=== PATIENT | female | born 1965 | race Caucasian/White ===

== ENCOUNTER 2018-04-30 06:12 | Day surgery (SDC) | payer OTHER ==
--- NOTE | 2018-04-20 12:24 | HP ---
HISTORY AND PHYSICAL: DATE OF SURGERY: 04/30/18. DATE OF OFFICE VISIT: 04/01/18. SURGEON: Yennifer Ochoa MD.* (DICTATED BY LANE THURMAN) PROCEDURE: Left knee arthroplasty with partial lateral meniscectomy, possible chondroplasty, possible synovectomy. CHIEF COMPLAINT: Left knee pain. HISTORY OF PRESENT ILLNESS: Ms. Haddad is a 52-year-old female with continued to complaints of left knee pain and MRI confirms the lateral meniscus tear. She has elected to proceed with surgery. This surgery is scheduled for with Dr. Ochoa. PAST MEDICAL HISTORY: Asthma, depression, anxiety, panic disorder, IBS, PTSD, and mitral valve prolapse. PAST SURGICAL HISTORY: Left oophorectomy, breast augmentation, and laminectomy. CURRENT MEDICATIONS: 1. Calcium. 2. Multivitamin. 3. Tizanidine as needed. 4. Benadryl as needed. 5. Xanax. 6. Oxycodone 30 mg up to 5 tabs daily. 7. Wellbutrin. 8. Prozac. 9. Dalmane. 10. Lomotil. ALLERGIES: FENTANYL and MORPHINE. FAMILY HISTORY: Denies. SOCIAL HISTORY: She is a 52-year-old female. She lives alone. She smokes approximately 2 cigarettes a day. She uses alcohol rarely. She denies use of illicit drugs. REVIEW OF SYSTEMS: A complete 14-point review of systems was reviewed with the patient and was positive for asthma. She denies a history of DVT, PE, hepatitis or HIV. PHYSICAL EXAMINATION GENERAL: She is well-developed, well-nourished, in no acute distress. VITAL SIGNS: She stands 5 feet 6 inches tall, weighs 170 pounds. Her blood pressure is 140/90, heart rate is 80. HEENT: Normocephalic, atraumatic. NECK: Supple. No palpable lymph nodes. PULMONARY: Lungs are clear to auscultation bilaterally. CARDIO: Regular rate and rhythm. Strong S1 and S2. ABDOMEN: Soft, nontender, nondistended. NEUROLOGIC: She is alert and oriented x3. Cranial nerves II through XII are intact. MUSCULOSKELETAL: Left lower extremity, the skin is intact. There are no open wounds or abrasions. There are moderate joint effusions. She has some tenderness over the lateral joint line. Positive Ragini's, 2+ dorsalis pedis pulses. Intact sensation in her lower extremity. Muscle strengths were intact at 5/5. ASSESSMENT: Ms. Haddad is a 52-year-old female with continued complaints of left knee pain. She has failed conservative management and has elected to proceed with left knee arthroscopy with partial lateral meniscectomy, possible chondroplasty, possible synovectomy. The surgery is scheduled for 04/30/[address] Ochoa discussed the risks and benefits of the surgery with her today and all of her questions were answered. She will follow up Dr. Ochoa in 10 to 14 days after the surgery. L[address] THURMAN [id number]/[facility] #: [id number] MTDD
[~2018-04-30 06:12] MED LIST: Buffered Lidocaine 0.9% SYRIN* 5 ML/SYR SYRINGE INTRADERM ONE
[2018-04-30] MEDS ORDERED: ceFAZolin 2 GM PREMIX (*) 2 GM/50 ML BAG IVPB ONE (06:22)
[2018-04-30] MEDS ORDERED: methylPREDNISolone ACETATE 80* 80 MG/ML 1 ML VIAL ONE (06:45)
[2018-04-30] MEDS ORDERED: Bupivacaine 0.5% SDV PF* 30ML VIAL ONE (06:45)
[2018-04-30] MEDS ORDERED: EPINEPHRINE 1 MG/ML 1 ML VIAL ONE (06:45)
[2018-04-30] MEDS ORDERED: Midazolam* 1 MG/ML 2 ML VIAL (2 MG) ONE (07:23)
[2018-04-30] MEDS ORDERED: fentaNYL* 50 MCG/ML 2 ML VIAL (100 MCG VIAL) ONE (07:23)
[2018-04-30] MEDS ORDERED: Lidocaine 2% PF * 5 ML VIAL ONE (07:35)
[2018-04-30] MEDS ORDERED: Propofol* 10 MG/ML 20 ML BTL IV PUSH ONE (07:35)
[2018-04-30] MEDS ORDERED: Dexamethasone IV* 4 MG/ML 1 ML (4 MG) ONE (07:35)
[2018-04-30] MEDS ORDERED: Ketorolac INJ* 30 MG/ML 1 ML VIAL ONE (07:35)
[2018-04-30] MEDS ORDERED: Sevoflurane* 1 BTL ONE (07:36)
[2018-04-30] MEDS ORDERED: Naloxone* 0.4 MG/ML 1 ML VIAL IV PRN (07:55)
[2018-04-30] MEDS ORDERED: DiMENhydriNATE IV* 50 MG/ML VIAL IV PUSH PRN (07:55)
[2018-04-30] MEDS ORDERED: Acetaminophen TAB* 325 MG PO PRN (07:55)
[2018-04-30] MEDS ORDERED: diPHENhydraMINE IV* 50 MG/ML 1 ml VIAL (BENADRYL) IV PRN (07:55)
[2018-04-30] MEDS ORDERED: PROCHLORPERAZINE INJ 5 MG/ML 2 ML VIAL IV PRN (07:55)
[2018-04-30] MEDS ORDERED: oxyCODONE TAB* 5 MG TAB PO PRN (07:55)
[2018-04-30] MEDS ORDERED: Ondansetron SYRINGE* 4 MG/2 ML SYRINGE (from 40mg/20ml vial) IV ONE (08:00)
[2018-04-30] MEDS ORDERED: oxyCODONE TAB* 5 MG TAB ONE (09:01)
[2018-04-30] MEDS ORDERED: Acetaminophen TAB* 325 MG ONE (09:02)
[2018-04-30] MEDS ORDERED: diPHENhydraMINE IV* 50 MG/ML 1 ml VIAL (BENADRYL) ONE (09:21)
[2018-04-30 10:58] VITALS: BP 130/71
--- NOTE | 2018-05-01 09:20 | OP ---
OPERATIVE NOTE: DATE OF OPERATION: 04/30/18 DATE OF : 63 ATTENDING SURGEON: Yennifer Ochoa MD IRISH MOSS GATHERER: LANE Payne Mr. Clancy did help throughout the procedure with preparation of the leg, wound retraction, manipulat ion of the knee and wound closure. ANESTHESIOLOGIST: Dr. Palacios. ANESTHESIA: General. PRE-OP DIAGNOSES: Left knee lateral meniscal tear, mild osteoarthritis. POST-OP DIAGNOSES: Left knee medial and lateral meniscal tear, medial plica, mild- to-moderate osteo arthritis. OPERATIVE PROCEDURE: Left knee arthroscopy with partial medial meniscectomy, partial lateral menisce ctomy and medial plica excision. INDICATION: Ms. Haddad is a 52-year-old female with several months of left knee pain. She had mecha nical symptoms and failed conservative treatment. MRI confirmed a significant lateral meniscal tear as well as mild arthritic changes. The patient elected to have left knee arthroscopy with partial men iscectomy, possible chondroplasty, possible synovectomy. Informed consent was obtained from the meghann ent. She understood the risks of the surgery included, but were not limited to, bleeding, infection, damage to nearby structures, continued pain, progression of arthritis, re-tear of the meniscus, stro ke, heart attack, blood clot, and . She wished to proceed. INTRAOPERATIVE FINDINGS: Intraoperatively, the patient was noted to have grade 2 and 3 Outerbridge c artilage changes in the medial and patellofemoral compartment. She had a radial tear of the medial me niscus. She had a linear tear of the posterior 50% of the lateral meniscus involving the white-red z one and red-red zone. This did displace anteriorly. The patient had a large medial plica that impinged along the patellofemoral compartment with range of motion. ESTIMATED BLOOD LOSS: Less than 25 mL. COMPLICATIONS: None. SPECIMEN: None. DESCRIPTION OF PROCEDURE: Ms. Haddad was identified in the preanesthesia unit. Her left lower extrem ity was marked as a correct operative side. Informed consent was signed and placed in the chart. Th e patient was taken to the operating room and placed under anesthesia. Preop time-out was made to co rrectly identify the patient's side and site. Appropriate perioperative antibiotics were given withi n 1 hour of incision. Left lower extremity was prepped and draped in usual sterile fashion. A stand margie 0.5 cm lateral portal incision was made with a 15-blade and carried down through the capsule. Th e trocar was introduced. As soon as the light and water sources were turned on, there was immediate visualization of the suprapatellar pouch. A tour of the knee joints was performed. Suprapatellar po uch had no obvious abnormality. Patellofemoral compartment had some grade 2 and 3 Outerbridge cartil age changes. There was a large medial plica noted. Medial gutter had no loose body noted. Medial c ompartment had some grade 2 and 3 Outerbridge cartilage changes. There was a radial tear with some d isplacement into the joint along the midportion of the meniscus. ACL and PCL appeared to be intact. The knee was placed in a jqmphy-xk-clhc position. There was a visible lateral meniscal tear with gracy e anterior displacement. Lateral gutters showed no loose body or plica. Under direct visualization, a medial portal incision was made. A probe was introduced and a second t our of the knee joint was performed. A small amount of the anterior synovium was cleared to improve visualization. Next, a shaver and radiofrequency ablation wand were used to excise the medial plica until there was no further impingement with range of motion. There were no significant cartilage fla ps noted. Shaver and straight biter were first used to perform partial medial meniscectomy of the ra dial tear. A smooth border was obtained in the white-red zone. Next, the knee was placed in the fig ure-of-four position. Probing of the lateral meniscal tear showed that it was a linear tear that kasandra roached bucket- handle type tear. This displaced anteriorly into the joint. A straight biter and sh aver were used to perform partial lateral meniscectomy in the red-white and red- red zone. A smooth border of the meniscus was obtained. Further probing of the lateral meniscus showed no additional te ars. The knee was copiously irrigated with sterile saline. All instruments were removed. The incis ions were closed using interrupted 3-0 nylon sutures. Intraarticular injection of 80 mg of Depo-Medr ol and 6 mL of 0.25% Marcaine was placed in the knee joint. Sterile Xeroform, 4x4s and Webril were u sed to cover the incision. Oscar wrap and cold pack were placed over this. The patient's anesthesia w as reversed without difficulty. She was taken to the PACU in stable condition. Intended weightbeari ng will be weightbearing as tolerated. She will follow up in 2 weeks' time for suture removal. [id number]/[facility] #: [id number]
== END 2018-04-30 11:40 | disposition home or self-care (01) ==
LOC: OR 06:12
PROVIDERS: ATTEND Orthopaedic Surgery Adult Reconstructive Orthopaedic Surgery
DX: M23.204 Derangement of unspecified medial meniscus due to old tear or injury, left knee (principal); M23.201 Derangement of unspecified lateral meniscus due to old tear or injury, left knee; M67.52 Plica syndrome, left knee; M17.12 Unilateral primary osteoarthritis, left knee; J45.909 Unspecified asthma, uncomplicated; F41.8 Other specified anxiety disorders; F43.10 Post-traumatic stress disorder, unspecified; I34.1 Nonrheumatic mitral (valve) prolapse; K58.9 Irritable bowel syndrome, unspecified; F41.0 Panic disorder [episodic paroxysmal anxiety]; Z72.0 Tobacco use; K21.9 Gastro-esophageal reflux disease without esophagitis
CPT/HCPCS: A9270-GY; J0690; J1040; J1100; J1200; J1885; J2250; J2405; J2704; J3010

== ENCOUNTER 2019-03-16 06:45 | Day surgery (SDC) | payer OTHER ==
--- NOTE | 2019-02-01 16:38 | HP ---
HISTORY AND PHYSICAL: DATE OF SURGERY: 02/11/19 DATE OF OFFICE VISIT: 02/01/19 SURGEON: Yennifer Ochoa MD.* (DICTATED BY LANE THURMAN) PROCEDURE: Right knee arthroscopy with partial meniscectomy, possible chondroplasty, possible synovectomy, and possible plica excision. CHIEF COMPLAINT: Right knee pain. HISTORY OF PRESENT ILLNESS: Ms. Haddad is a 53-year-old female with continued complaints of right knee pain. She has elected to proceed with the right knee arthroscopy. PAST MEDICAL HISTORY: Asthma, anxiety, depression, PTSD, agarophobia, IBS, and mitral valve prolapse. PAST SURGICAL HISTORY: Left oophorectomy, breast implants, back surgery, and left knee arthroscopy x2. CURRENT MEDICATIONS: 1. Benadryl Allergy as needed daily. 2. Daily multivitamin calcium every day. 3. Oxycodone 30 mg 4 to 5 times a day. 4. Flurazepam 30 mg at bedtime. 5. Senokot and omeprazole as needed. 6. Diphenoxylate/atropine 2.5/0.025 mg 2 tabs up to 4 times a day. 7. Alprazolam 2 mg 1/2 tab 3 times a day. 8. Bupropion 150 mg 2 tabs once a day. ALLERGIES: FENTANYL and MORPHINE. FAMILY HISTORY: Denies. SOCIAL HISTORY: She is a 53-year-old female. She lives alone. She does not smoke or use drugs. REVIEW OF SYSTEMS: A complete 14-point review of systems was reviewed with the patient. She denies history of DVT, PE, hepatitis, HIV, or anesthesia problems. She has some occasional shortness of breath. PHYSICAL EXAMINATION GENERAL: She is well developed, well nourished, in no acute distress. VITAL SIGNS: She stands 66 inches tall, weighs 185 pounds. Her blood pressure is 116/76, her heart rate is 100. HEENT: Normocephalic, atraumatic. NECK: Supple. No palpable lymph nodes. PULMONARY: The lungs are clear to auscultation bilaterally. CARDIO: Regular rate and rhythm. Strong S1, S2. ABDOMEN: Soft, nontender, nondistended. NEUROLOGICAL: She is alert and oriented x3. MUSCULOSKELETAL: Right lower extremity: The skin is intact. There are no open wounds or abrasions. Positive Ragini's, positive Apley's, some moderate effusion. Range of motion is 5 to 120 degrees of flexion. She is able to dorsiflex and plantarflex and has a 2+ dorsalis pedis pulse. ASSESSMENT AND PLAN: Ms. Haddad is a 53-year-old female with continued complaints of right knee pain. She has elected to proceed with right knee arthroscopy with partial meniscectomy, possible chondroplasty, possible synovectomy, possible plica excision. Surgery scheduled for 02/11/[address] Ochoa discussed the risks and benefits of the surgery at today's visit and all of her questions were answered. She will follow up with Dr. Ochoa 2 weeks after the surgery. L[address] THURMAN [id number]/[facility] #: [id number] MTDD
--- NOTE | 2019-03-12 18:15 | HP ---
HISTORY AND PHYSICAL: DATE OF ADMISSION/SURGERY: 03/16/19 DATE OF OFFICE VISIT: 03/12/19 SURGEON: Yennifer Ochoa MD* (dictated by LANE Thurman). PROCEDURE: Right knee arthroscopy with partial meniscectomy, possible chondroplasty, possible synovectomy, possible plica excision. CHIEF COMPLAINT: Right knee pain. HISTORY OF PRESENT ILLNESS: Ms. Haddad is a 53-year-old female with complaints of right knee pain. An MRI confirms a meniscus tear and she has elected to proceed with surgery. PAST MEDICAL HISTORY: Asthma, anxiety, depression, PTSD, agoraphobia, and rectal valve prolapse. PAST SURGICAL HISTORY: Left oophorectomy, breast implants, low back surgery, left knee scope x2, cyst removal from her right ovary; surgery on her finger. CURRENT MEDICATIONS: 1. Fluoxetine 20 mg a day. 2. Tizanidine as needed. 3. Benadryl Allergy 25 mg as needed. 4. Multivitamin. 5. Calcium. 6. Oxycodone 30 mg 4 to 5 times a day. 7. Flurazepam 30 mg q.h.s. 8. Diphenoxylate/atropine 2.5/0.025 mg 2 tabs 4 times a day as needed. 9. Alprazolam 2 mg 4 times a day as needed. 10. Bupropion 300 mg a day. 11. . ALLERGIES: To FENTANYL and MORPHINE. FAMILY HISTORY: Denies. SOCIAL HISTORY: She is a 53-year-old female. She lives alone. She does not smoke or use drugs. Uses alcohol rarely. REVIEW OF SYSTEMS: A complete 14-point review of systems was reviewed with the patient. It was all negative or noncontributory. She denies history of DVT, PE , hepatitis, HIV or anesthesia problems. PHYSICAL EXAMINATION GENERAL: She is well developed, well nourished, in no acute distress. VITAL SIGNS: She stands 66 inches tall, weighs 189 pounds. Her blood pressure is 138/80, her heart rate is 84. HEENT: Normocephalic, atraumatic. NECK: Supple. No palpable lymph nodes. PULMONARY: The lungs are clear to auscultation bilaterally. CARDIO: Regular rate and rhythm. Strong S1, S2. ABDOMEN: Soft, nontender, nondistended. NEUROLOGICAL: She is alert and oriented x3. MUSCULOSKELETAL: Right lower extremity: The skin is intact. There are no open wounds or abrasions. There is obvious effusion of the right knee, some tenderness over the medial and lateral joint line. She has positive Ragini's , positive Apley's, negative for Shira's. 2+ dorsalis pedis pulse. She is able to dorsiflex and plantar flex. ASSESSMENT AND PLAN: Ms. Haddad is a 53-year-old female with right knee pain secondary to a meniscus tear. She has elected to proceed with right knee arthroscopy with partial meniscectomy, possible chondroplasty, possible synovectomy, and possible plica excision. The surgery is scheduled for with Dr. Ochoa. Dr. Ochoa discussed the risks and benefits of the surgery at today's visit and all of her questions were answered. She will follow up with Dr. Ochoa 2 weeks after the surgery. L[address] THURMAN [id number]/[facility] #: [id number] MTDD
[~2019-03-16 06:45] MED LIST changes: +ALPRAZolam TAB* 0.25 MG PO PRN; -Buffered Lidocaine 0.9% SYRIN* 5 ML/SYR SYRINGE INTRADERM ONE; +Buffered Lidocaine 1% SYRIN* 1 ML/SYRINGE INTRADERM ONE; +Famotidine IV* 10 MG/ML 2 ML (20 mg) IV ONE; +Lactated Ringers 1000 ML Bag* 1,000 ML IV SCH
[2019-03-16] MEDS ORDERED: ceFAZolin 2 GM PREMIX in ORs 2 GM/50 ML BAG IVPB ONE (07:05)
[2019-03-16] MEDS ORDERED: Buffered Lidocaine 1% SYRIN* 1 ML/SYRINGE INTRADERM ONE (07:06)
[2019-03-16] MEDS ORDERED: Famotidine IV* 10 MG/ML 2 ML (20 mg) ONE (07:06)
[2019-03-16] MEDS ORDERED: fentaNYL* 50 MCG/ML 2 ML VIAL (100 MCG VIAL) ONE (07:51)
[2019-03-16] MEDS ORDERED: Midazolam* 1 MG/ML 5 ML VIAL (5 MG) ONE (07:52)
[2019-03-16] MEDS ORDERED: methylPREDNISolone ACETATE 80* 80 MG/ML 1 ML VIAL ONE (08:32)
[2019-03-16] MEDS ORDERED: EPINEPHRINE 1 MG/ML 1 ML VIAL ONE (08:32)
[2019-03-16] MEDS ORDERED: ROPIVACAINE 5 MG/ML 30 ML BTL (0.5%) ONE (08:32)
[2019-03-16] MEDS ORDERED: Lidocaine 2% PF * 5 ML VIAL ONE (09:14)
[2019-03-16] MEDS ORDERED: Propofol* 10 MG/ML 20 ML BTL ONE (09:14)
[2019-03-16] MEDS ORDERED: Ketorolac INJ* 30 MG/ML 1 ML VIAL ONE (09:14)
[2019-03-16] MEDS ORDERED: Dexamethasone IV* 4 MG/ML 1 ML (4 MG) ONE (09:14)
[2019-03-16] MEDS ORDERED: Ondansetron INJ* 2 MG/ML VIAL ONE (09:14)
[2019-03-16] MEDS ORDERED: diPHENhydraMINE IV* 50 MG/ML 1 ml VIAL (BENADRYL) ONE (09:14)
[2019-03-16] MEDS ORDERED: HYDROmorphone INJ1* 1 MG/ML SYRINGE ONE (09:22)
[2019-03-16] MEDS ORDERED: Acetaminophen TAB* 325 MG PO PRN (09:36)
[2019-03-16] MEDS ORDERED: DiMENhydriNATE IV* 50 MG/ML VIAL IV PUSH PRN (09:36)
[2019-03-16] MEDS ORDERED: Naloxone* 0.4 MG/ML 1 ML VIAL IV PRN (09:36)
[2019-03-16] MEDS ORDERED: oxyCODONE TAB* 5 MG TAB ONE ×2 (10:12→10:25)
[2019-03-16] MEDS: oxyCODONE TAB* 5 MG TAB PO PRN ×2 (10:13→10:26)
[2019-03-16] MEDS ORDERED: Acetaminophen TAB* 325 MG ONE (10:50)
[2019-03-16 11:23] VITALS: BP 138/91
--- NOTE | 2019-03-16 11:26 | OP ---
OPERATIVE REPORT: DATE OF OPERATION: 03/16/19 DATE OF : 63 ATTENDING SURGEON: Yennifer Ochoa MD. MEDIA JOB TITLES: LANE Payne Mr. Clancy did help throughout the procedure with preparation of the leg, wound retraction, manipulat ion of the knee, and wound closure. ANESTHESIOLOGIST: Dr. Fermin. ANESTHESIA: General. PRE-OP DIAGNOSES: 1. Right knee medial and lateral meniscal tears. 2. Moderate osteoarthritis. POST-OP DIAGNOSES: 1. Right knee medial and lateral meniscal tears. 2. Moderate osteoarthritis. OPERATIVE PROCEDURE: 1. Right knee arthroscopy with partial medial meniscectomy. 2. Partial lateral meniscectomy. 3. Patellofemoral chondroplasty. COMPLICATIONS: None. ESTIMATED BLOOD LOSS: Less than 25 cc. SPECIMEN: None. BRIEF HISTORY/INDICATION: Ms. Haddad is a 53-year-old female who had a known medial meniscal tear an d likely lateral meniscal tear on MRI. She failed conservative treatment and elected to undergo knee arthroscopy with partial meniscectomies, possible chondroplasty, possible synovectomy, possible plic a excision. Informed consent was obtained from the patient. She understood the risks of surgery inc luded, but were not limited to, bleeding, infection, damage to nearby structures, continued pain, nee d for further surgery, retear of the meniscus, stroke, heart attack, blood clot, , and anesthesi a complications. She wished to proceed. INTRAOPERATIVE FINDINGS: Intraoperatively, the patient was noted to have a radial displaced tear of the anteromedial meniscus as well as a radial tear in the midportion and posterior portion of the lat eral meniscus. These were in the white- red zone. She had grade 3 and 4 Outerbridge cartilage lopez es of the patellofemoral compartment with cartilage fraying and flapping. She had some exposed subch ondral bone along the medial patellar facet. She had grade 1 and 2 Outerbridge cartilage changes in the medial and lateral compartments. DESCRIPTION OF PROCEDURE: Ms. Haddad was identified in the preanesthesia unit. Her right lower extre mity was marked as the correct operative site. Informed consent was signed and placed in the chart. The patient was taken to the operating room and placed under anesthesia without complication. Right lower extremity was prepped and draped in the usual sterile fashion. Preop time-out was made to cor rectly identify the patient, side, and site. Appropriate perioperative antibiotics were given within 1 hour of incision. A 0.5 cm anterolateral portal incision was made with a #10 blade and carried down through the capsule . The trocar was introduced. As soon as the water and light sources were turned on, there was immed iate visualization of the suprapatellar pouch. A tour of the knee joint was performed. Suprapatella r pouch had no obvious abnormalities. Patellofemoral compartment had grade 3 and 4 Outerbridge carti mimi changes with exposed subchondral bone along the medial patellar facet. There was cartilage fray ing and flapping. Medial gutter showed no loose body or significant plica. Medial compartment showe d some rxmu-fm-ajtzjnwe arthritic changes. Radial tear was visualized with displacement of the menis josephine tear into the joint line. This was along the anteromedial meniscus. ACL and PCL appeared to be i ntact. The knee was placed in a znezqd-zv-mxov position. Lateral compartment had grade 1 and 2 Oute rbridge cartilage changes. There was a radial tear on the posterior horn of the lateral meniscus and in the mid portion extending to the white-red zone. Lateral gutter showed no obvious abnormality. Under direct visualization, a medial portal incision was made. Probe was introduced and a second jamin r of the knee joint was performed. There were no additional findings. Shaver was introduced and ant erior partial meniscectomy was performed. Radiofrequency ablation wand was used to further smooth th e edge of the medial meniscus. Further probing of the medial meniscus showed no additional tears. The knee was placed in a asjhsj-gj-wxwj position. Straight biter and shaver were used to perform par tial lateral meniscectomy. The radial tears were excised. This was in the white-red zone. Radiofre quency ablation wand was used to further smooth the edge of the lateral meniscus. Further probing of the meniscus showed no additional tears. The radiofrequency ablation wand was then used to smooth cartilage flaps and fraying along the patell ofemoral compartment. This chondroplasty was performed conservatively. The knee was copiously irrig ated with sterile saline. All instruments were removed. Portal incisions were closed using interrup cammie 3-0 nylon suture. Intraarticular injection of 80 mg Depo-Medrol and 6 cc of 0.25% Marcaine was p laced in the knee joint. Incisions were covered with sterile Xeroform, 4x4's, and Webril. Oscar wrap was placed over this. The patient's anesthesia was reversed without difficulty. [facility] condition. Intended weightbearing will be weightbearing as tolerated. Intended DVT prophylaxis will be aspirin. [id number]/[facility] #: [id number]
== END 2019-03-16 11:33 | disposition home or self-care (01) ==
LOC: OR 06:45
PROVIDERS: ATTEND Orthopaedic Surgery Adult Reconstructive Orthopaedic Surgery
DX: S83.241A Other tear of medial meniscus, current injury, right knee, initial encounter (principal); S83.281A Other tear of lateral meniscus, current injury, right knee, initial encounter; M17.11 Unilateral primary osteoarthritis, right knee; J45.909 Unspecified asthma, uncomplicated; F41.9 Anxiety disorder, unspecified; F32.9 Major depressive disorder, single episode, unspecified; F43.10 Post-traumatic stress disorder, unspecified; F40.00 Agoraphobia, unspecified; K58.9 Irritable bowel syndrome, unspecified; I34.1 Nonrheumatic mitral (valve) prolapse; Z88.5 Allergy status to narcotic agent; Z88.8 Allergy status to other drugs, medicaments and biological substances; X58.XXXA Exposure to other specified factors, initial encounter
CPT/HCPCS: A9270-GY; J0690; J1040; J1100; J1170; J1200; J1885; J2250; J2405; J2704; J2795; J3010

== ENCOUNTER 2019-07-04 11:03 | Emergency (ER) | payer OTHER ==
--- OUTSIDE RECORDS SUMMARY | 2019-07-04 11:16 | XMS REPORT | Continuity of Care Document ---
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 Basophil 0.6 % 0.0-4.0 Abs Neutrophils 2.2 K/uL 2.1-8.0 Abs Lymphocytes 2.7 K/uL 0.8-5.5 Abs Monocytes 0.4 K/uL 0.1-1.0 Abs Eosinophils 0.2 K/uL 0.0-0.5 Abs Basophils 0.0 K/uL 0.0-0.3 Comprehensive Met Panel-[facility]CMG 02/19/2019 [facility] Sodium 139 mmol/L 135- 146 1 Potassium 4.1 mmol/L 3.5-5.2 Chloride# 99 mmol/L 97-110 2 Carbon Dioxide 32 mmol/L 24-34 Glucose 96 mg/dL 70-105 BUN 15 mg/dL 6-26 Creatinine 1.1 mg/dL 0.5-1.4 Calcium 10.3 mg/dL High 8.5-10.2 Total Protein 7.1 g/dL 6.0-8.0 Albumin 4.7 g/dL 3.6-4.9 Globulin 2.4 g/dL 2.0-3.5 A/G Ratio 2.0 Ratio 1.0-2.2 Total Bilirubin 0.5 mg/dL 0.1-1.3 Alkaline Phosphatase 83 U/L 24-140 Alt 19 U/L 3-42 Ast 22 U/L 8-42 Anion Gap 8 mmol/L 5-15 3 Elana Egfr >60 >60 4 Non Elana Egfr 52 Low >60 5 Laboratory test finding 02/19/2019 [facility] TSH 1.68 uIU/mL 0.35-4.94 Ferritin 40.2 ng/ml 11.0-306.8 Hemoglobin A1c 04/11/2017 [facility] Hemoglobin A1c 5.4 % 4.1-5.9 Estimated Average Glucose Calc 108 71-140 CBC With Auto Diff 04/01/2017 [facility] WBC 6.2 K/uL 4.1-11.0 6 RBC 3.90 M/uL Low 4.00-5.40 Hemoglobin 11.5 gm/dL Low 12.0-16.0 Hematocrit 34.5 % Low 36.0-47.0 MCV 88.4 fL 80.0-97.0 MCH 29.4 pg 27.0-32.0 MCHC 33.3 g/dL 32.0-36.0 RDW 13.1 % 11.5-14.5 PLT Count 243 K/ul 140-400 Neutrophil 42.4 % 35.0-75.0 Lymphocyte 44.8 % 16.0-52.0 Monocyte 6.7 % 2.0-10.0 Eosinophil 5.5 % High 0.0-5.0 Basophil 0.6 % 0.0-4.0 Abs Neutrophils 2.6 K/uL 2.1-8.0 Abs Lymphocytes 2.8 K/uL 0.8-5.5 Abs Monocytes 0.4 K/uL 0.1-1.0 Abs Eosinophils 0.3 K/uL 0.0-0.5 Abs Basophils 0.0 K/uL 0.0-0.3 Comprehensive Metabolic (CMP) 04/01/2017 [facility] Sodium 141 mmol/L 135- 146 7 Potassium 4.4 mmol/L 3.5-5.2 Chloride# 101 mmol/L 97-110 8 Carbon Dioxide 34 mmol/L 24-34 Glucose 91 mg/dL 70-105 BUN 12 mg/dL 6-26 Creatinine 0.9 mg/dL 0.5-1.4 Calcium 9.2 mg/dL 8.5-10.2 Total Protein 6.0 g/dL 6.0-8.0 Albumin 3.8 g/dL 3.6-4.9 Globulin 2.2 g/dL 2.0-3.5 A/G Ratio 1.7 Ratio 1.0-2.2 Total Bilirubin 0.3 mg/dL 0.1-1.3 Alkaline Phosphatase 76 U/L 24-140 Alt 9 U/L 3-42 Ast 15 U/L 8-42 Elana Egfr >60 >60 9 Non Elana Egfr >60 >60 10 Anion Gap 10 mmol/L 7-16 11 Laboratory test finding 04/01/2017 [facility] TSH 5.08 uIU/mL High 0.35- 4.94 Rout Urine W/ Micro -RL 04/01/2017 [facility] Color YELLOW Appearance CLEAR Spec Grav Urine 1.015 (1.003-1.030) PH Urine 7.0 (5.0-7.5) Leuk Esterase 2+ Abnormal (Neg) Nitrite Urine NEGATIVE (Neg) Protein Urine NEGATIVE (Neg) Glucose Urine NEGATIVE (Neg) Ketone Urine NEGATIVE (Neg) Urobilinogen 0.2 mg/dL (0-1.0) Bilirubin Urine NEGATIVE (Neg) Blood/HGB Urine NEGATIVE (Neg) Epithelial Cells 1+ [HPF] Abnormal (Neg) Hyaline Casts 1.0 [LPF] (0-5) Bacteria 1+ [HPF] Abnormal (Neg) Urine WBC 13.5 [HPF] High (0-8) Urine RBC 1.0 [HPF] (0-3) 12 Lyme Disease By PCR - RL 04/01/2017 [facility] SERUM Lyme PCR Not Detected 13 Laboratory test 04/01/2017 [facility] Urine Culture Microbiology res 14 finding <SEE NOTE> Drugs Of 04/01/2017 [facility] Amphetamines,Ur Negative <1000 Abuse,Urine-FCMG ine ng/mL Barbiturates,Urine Negative <200 ng/mL Benzodiazepines, Urine Positive <200 ng/mL Bupernorphrine/Norbu,Urine Negative <10 ng/mL Cocaine Metabolites,Urine Negative <300 ng/mL Methadone,Urine Negative <300 ng/mL Opiates,Urine Positive <300 ng/mL Oxycodone,Urine Positive <100 ng/mL Phencyclidine,Urine Negative <25 ng/mL Cannabinoids,Urine Negative <50 ng/mL Laboratory test finding 06/28/2016 [facility] CCP Antibody Igg 4 15, 16 Lyme Disease By PCR - RL 06/28/2016 [facility] SERUM Lyme PCR Not Detected 17 Drug Screen Serum-RL 06/28/2016 [facility] Amphetamines Serum Negative 18 Barbiturates Negative 19 Benzodiazepines Positive 20 Cocaine Negative 21 Methadone Negative 22 Opiates Negative 23 Phencyclidine Negative 24 Cannabinoids Negative 25 Oxycodone,Serum Positive 26 Methamphetamine Negative 27 Drug Screen Comments See Note 28 Propoxyphene Negative ng/mL 29 Benzodiazepines Conf 06/28/2016 [facility] Diazepam Ser/Kash <5 30 [phone] Nordiazepam Ser/Kash <20 31 Oxazepam Ser/Kash <20 32 Temazepam Ser/Kash <20 33 Lorazepam Ser/Kash <20 34 Alprazolam Ser/Kash 113 35 Alpha Oh Alprazolam <5 36 Clonazepam Ser/Kash <5 37 7 Aminoclonazepam SP <5 38 Midazolam Ser/Kash <20 39 Chlordiazepoxide S/P <20 40 Alpha Oh Midazolam <20 41 Opiates S/P Confirm 06/28/2016 [facility] Opiates 6 Am <2 ng/mL 42 [phone] Opiates Codeine <2 ng/mL Opiates Morphine <2 ng/mL Opiates Hydrocodone <2 ng/mL Opiates Hydromorpho <2 ng/mL Opiates Oxycodone 440 ng/mL 43 Opiates Oxymorphone <2 ng/mL 44 Christal Screen With Reflex-FCMG 06/28/2016 [facility] Christal Screen NEGATIVE dsDNA IgG NEGATIVE Laboratory test finding 06/28/2016 [facility] CRP (C-Reactive) 0.53 mg/dL 0.00-0.75 Esr 22 mm/hr High 0-20 Rheumatoid Factor <10.0 IU/mL 0.0-10.0 CBC With Auto Diff 05/21/2016 [facility] WBC 8.2 K/uL 4.1-11.0 RBC 4.86 M/uL 4.00-5.40 Hemoglobin 14.4 gm/dL 12.0-16.0 Hematocrit 42.7 % 36.0-47.0 MCV 88.0 fL 80.0-97.0 MCH 29.6 pg 27.0-32.0 MCHC 33.6 g/dL 32.0-36.0 RDW 13.5 % 11.5-14.5 PLT Count 317 K/ul 140-400 Neutrophil 87.2 % High 35.0-75.0 Lymphocyte 9.3 % Low 16.0-52.0 Monocyte 2.4 % 2.0-10.0 Eosinophil 0.7 % 0.0-5.0 Basophil 0.4 % 0.0-4.0 Abs Neutrophils 7.1 K/uL 2.1-8.0 Abs Lymphocytes 0.8 K/uL 0.8-5.5 Abs Monocytes 0.2 K/uL 0.1-1.0 Abs Eosinophils 0.1 K/uL 0.0-0.5 Abs Basophils 0.0 K/uL 0.0-0.3 Comprehensive Metabolic (CMP) 05/21/2016 [facility] Sodium 138 mmol/L 134- 142 Potassium 4.3 mmol/L 3.5-5.2 Chloride 103 mmol/L 97-109 Carbon Dioxide 29 mmol/L 24-34 Glucose 110 mg/dL High 70-105 BUN 8 mg/dL 6-26 Creatinine 0.7 mg/dL 0.5-1.4 Calcium 9.9 mg/dL 8.5-10.2 Total Protein 6.9 g/dL 6.0-8.0 Albumin 4.0 g/dL 3.6-4.9 Globulin 2.9 g/dL 2.0-3.5 A/G Ratio 1.4 Ratio 1.0-2.2 Total Bilirubin 0.4 mg/dL 0.1-1.3 Alkaline Phosphatase 92 U/L 24-140 Alt 18 U/L 3-42 Ast 23 U/L 8-42 Anion Gap 10 mmol/L 6-14 Elana Egfr >60 >60 45 Non Elana Egfr >60 >60 46 Laboratory test finding 05/21/2016 [facility] Uric Acid 2.5 mg/dL Low 2.6- 7.6 TSH 0.24 uIU/mL Low 0.35-4.94 Lipid 05/21/2016 [facility] Cholesterol 272 mg/dL High 50-199 Triglycerides 138 mg/dL 30-200 HDL 51 mg/dL 35-85 47 Chol/ HDL Ratio 5.3 ratio 3.7-5.6 VLDL 28 mg/dL 2-29 LDL (Calc) 193 mg/dL High 20-99 48 Laboratory test 05/19/2016 [facility] D-Dimer, 0.31 ug/ mL 49 finding (315)- - Quantitative Lipid 02/13/2015 [facility] Cholesterol 258 mg/dL High 50-19 9 Triglycerides 184 mg/dL 30-200 HDL 49 mg/dL 35-85 50 Chol/ HDL Ratio 5.3 ratio 3.7-5.6 VLDL 37 mg/dL High 2-29 LDL (Calc) 172 mg/dL High 20-99 51 Laboratory test 02/13/2015 [facility] Hepatitis C Non reactive Non reactive finding Virus Antibody Laboratory test 02/13/2015 [facility] TSH 0.21 uIU/mL Low 0.34-5.60 finding Comprehensive 02/13/2015 [facility] Sodium 140 mmol/L 134-142 Metabolic (CMP) Potassium 3.9 mmol/L 3.5-5.2 Chloride 104 mmol/L 97-109 Carbon Dioxide 29 mmol/L 24-34 Glucose 105 mg/dL 70-105 BUN 8 mg/dL 6-26 Creatinine 0.7 mg/dL 0.5-1.4 Calcium 10.0 mg/dL 8.5-10.2 Total Protein 7.1 g/dL 6.0-8.0 Albumin 4.4 g/dL 3.6-4.9 Globulin 2.7 g/dL 2.0-3.5 A/G Ratio 1.6 Ratio 1.0-2.2 Total Bilirubin 0.5 mg/dL 0.1-1.3 Alkaline Phosphatase 90 U/L 24-140 Alt 15 U/L 3-42 Ast 15 U/L 8-42 Anion Gap 11 mmol/L 6-14 Elana Egfr >60 >60 52 Non Elana Egfr >60 >60 53 CBC With Auto Diff 02/13/2015 [facility] WBC 7.1 K/uL 4.1-11.0 RBC 4.82 M/uL 4.00-5.40 Hemoglobin 14.4 gm/dL 12.0-16.0 Hematocrit 42.3 % 36.0-47.0 MCV 87.8 fL 80.0-97.0 MCH 29.9 pg 27.0-32.0 MCHC 34.1 g/dL 32.0-36.0 RDW 13.4 % 11.5-14.5 PLT Count 287 K/ul 140-400 Neutrophil 77.3 % High 35.0-75.0 Lymphocyte 18.2 % 16.0-52.0 Monocyte 3.6 % 2.0-10.0 Eosinophil 0.4 % 0.0-5.0 Basophil 0.5 % 0.0-4.0 Abs Neutrophils 5.5 K/uL 2.1-8.0 Abs Lymphocytes 1.3 K/uL 0.8-5.5 Abmon 0.3 K/uL 0.1-1.0 Abs Eosinophils 0.0 K/uL 0.0-0.5 Abs Basophils 0.0 K/uL 0.0-0.3 Laboratory test finding 12/22/2012 N2N/CCD Import BUN 8.0 mg/dL 7.0- 18.0 Creatinine-Serum 0.9 mg/dL 0.7-1.2 Protime 09/24/2012 N2N/CCD Import Inr 0.9 0.9-1.1 54 Protime 12.1 s 12.1-14.9 Laboratory test 09/24/2012 N2N/CCD Import Absolute 0.110 K/ul 0.0-0.3 finding Basophils Absolute Eosinophils 0.189 K/ul 0.0-0.5 Absolute Lymphocytes 2.82 K/ul 0.8-4.8 Absolute Monocytes 0.587 K/ul 0.1-1.0 Absolute Neutrophils 2.99 K/ul 2.05-7.63 Act Partial Thrombo Time 30.1 s 23.9-34.3 55 Basophil 1.6 % 0-2 Eosinophil 2.8 % 0-4 Ferritin 88.6 ng/mL 3-105 Hematocrit 41.4 % 37.0-51.0 Hemoglobin 13.7 GM/dl 12.0-16.0 Lymphocytes 42.1 % 20-44 MCH 31.0 pg 26.0-32.0 MCHC 33.0 g/dL 31.0-36.0 MCV 94 FL 80-97 Monocytes 8.8 % 2-10.0 Neutrophils 44.7 % Low 50-70 Platelet Count 308 K/ul 140-440 RBC 4.41 M/ul 4.2-6.3 RDW 11.1 % Low 11.5-14.5 Serum Iron 126 g/dL 25-156 Total Iron Binding Capacity 288 g/dL 245-419 Transferrin %Saturation 44 % 12-57 WBC 6.7 K/ul 4.1-10.9 LDL Cholesterol 11/05/2011 N2N/CCD Import Cholesterol 211 mg/dL High 120- 200 Profile HDL Cholesterol 59 mg/dL 29-83 LDL-Cholesterol 124 mg/dL 62-185 Triglycerides 138 mg/dL 16-231 Laboratory test finding 11/05/2011 N2N/CCD Import Alb/Glob 1.3 ratio Albumin 3.8 g/dL 3.5-5.0 Alkaline Phosphatase 68 U/L 50-136 Anion Gap 9 mEq/L 8-16 BUN 20 mg/dL 5-23 BUN/Creat 20.0 ratio Bilirubin,Total 0.5 mg/dL 0.2-1.2 Calcium 9.0 mg/dL 8.5-10.1 Carbon Dioxide 29 mEq/L 18-29 Chloride 106 mmol/L 98-107 Creatinine 1.0 mg/dL 0.5-1.4 Globulin 3.0 g/dL 1.9-4.3 Glom Filtration Rate, Estimate >60 mL/min >60 Glucose 94 mg/dL 76-115 If >60 mL/min >60 56 Potassium 4.1 mmol/L 3.5-5.1 SGPT/Alt 21 U/L Low 30-65 Sgot/Ast 15 U/L Low 16-40 Sodium 140 mmol/L 136-145 Thyroid Stim Hormone 3.81 uIU/mL 0.49-4.67 57 Total Protein 6.8 g/dL 6.3-8.0 1 Updated reference range on new analyzer 2 Updated reference range on new analyzer 3 Updated Reference Range 4 Concerning GFR Guidelines for Americans: Normal function or mild renal disease, if clinically at risk: >/= 60 mL/min Moderately decreased: 30-59 Severely decreased: 15-29 Renal failure: <15 5 Concerning GFR Guidelines: Normal function or mild renal disease, if clinically at risk: >/= 60 mL/min Moderately decreased: 30-59 Severely decreased: 15-29 Renal failure: <15 Glomerular Filtration Rate (GFR) is estimated based on the MDRD equation, which assumes a steady state for creatinine as recommended by the National Kidney Disease Education Program in conjunction with the National Institutes of Health and the National Kidney Foundation. Clinical conditions in which it may be necessary to measure GFR by using clearance methods include extremes of age and body size, severe malnutrition or obesity, diseases of skeletal muscle, paraplegia or quadriplegia, vegetarian diet, rapidly changing kidney function, and calculation of the dose of potentially toxic drugs that are excreted by the kidneys. 6 g screen if unable to obtain urine, please change urine drug screen to serum eva 7 Updated reference range on new analyzer 8 Updated reference range on new analyzer 9 Concerning GFR Guidelines for Americans: Normal function or mild renal disease, if clinically at risk: >/= 60 mL/min Moderately decreased: 30-59 Severely decreased: 15-29 Renal failure: <15 10 Concerning GFR Guidelines: Normal function or mild renal disease, if clinically at risk: >/= 60 mL/min Moderately decreased: 30-59 Severely decreased: 15-29 Renal failure: <15 Glomerular Filtration Rate (GFR) is estimated based on the MDRD equation, which assumes a steady state for creatinine as recommended by the National Kidney Disease Education Program in conjunction with the National Institutes of Health and the National Kidney Foundation. Clinical conditions in which it may be necessary to measure GFR by using clearance methods include extremes of age and body size, severe malnutrition or obesity, diseases of skeletal muscle, paraplegia or quadriplegia, vegetarian diet, rapidly changing kidney function, and calculation of the dose of potentially toxic drugs that are excreted by the kidneys. 11 Updated reference range on new analyzer 12 Unless otherwise specified, testing performed by [facility] [address] [place] [id number] 13 Not Detected NOT DETECTED - A negative result does not rule out the presence of PCR inhibitors in the patient specimen or assay specific nucleic acid in concentrations below the level of detection by the assay. The CDC considers blood and urine samples to be suboptimal for the detection for Borrelia by PCR. Positive results do not necessarily represent active disease. INTERPRETIVE INFORMATION: Borrelia Species DNA Detection by PCR Test developed and characteristics determined by [facility]. See Compliance Statement B: Novel/CS Performed by [facility], [address] [place] [address],[place] [address] [email or web address], Piyush Tavares MD, Lab. Director Unless otherwise specified, testing performed by [facility] [address] [place] [id number] 14 Microbiology results SOURCE Clean Catch Midstream FINAL RESULT 75,000 CFU/ML Urogenital bong consistent with contamination. Request fresh specimen if indicated. 15 Fastin hours 16 Reference range: 0 to 19 Unit: Units INTERPRETIVE INFORMATION: Cyclic Citrullinated Peptide Antibody, IgG 19 Units or less ................... Negative 20-39 Units ........................ Weak Positive 40-59 Units ........................ Moderate Positive 60 Units or greater ................ Strong Positive Anti-cyclic citrullinated peptide (anti-CCP), IgG antibodies are present in about 69-83 percent of patients with rheumatoid arthritis (RA) and have specificities of 93-95 percent. These autoantibodies may be present in the preclinical phase of disease, are associated with future RA development, and may predict radiographic joint destruction. Patients with weak positive results should be monitored and testing repeated. Performed by [facility] [address] [email or web address], Will Blanton MD, Lab. Director Unless otherwise specified, testing performed by [facility] [address] [place] [id number] 17 Not Detected NOT DETECTED - A negative result does not rule out the presence of PCR inhibitors in the patient specimen or assay specific nucleic acid in concentrations below the level of detection by the assay. The CDC considers blood and urine samples to be suboptimal for the detection for Borrelia by PCR. Positive results do not necessarily represent active disease. INTERPRETIVE INFORMATION: Borrelia Species DNA Detection by PCR Test developed and characteristics determined by [facility]. See Compliance Statement B: Novel/CS Performed by [facility], [address] [facility] [place] [facility] [address] [email or web address], Will Blanton MD, Lab. Director Unless otherwise specified, testing performed by [facility] [address] [place] [id number] 18 Negative Reference range: Cutoff 30 Unit: ng/mL 19 Negative Reference range: Cutoff 75 Unit: ng/mL 20 Positive Reference range: Cutoff 75 Unit: ng/mL If the screen is positive, then confirmation by mass spectrometry will be added. Additional charges will apply. Unconfirmed positive may be useful for medical purposes, but does not meet forensic standards. 21 Negative Reference range: Cutoff 30 Unit: ng/mL 22 Negative Reference range: Cutoff 40 Unit: ng/mL 23 Negative Reference range: Cutoff 30 Unit: ng/mL 24 Negative Reference range: Cutoff 15 Unit: ng/mL 25 Negative Reference range: Cutoff 30 Unit: ng/mL 26 Positive Reference range: Cutoff 30 Unit: ng/mL If the screen is positive, then confirmation by mass spectrometry will be added. Additional charges will apply. Unconfirmed positive may be useful for medical purposes, but does not meet forensic standards. 27 Negative Reference range: Cutoff 30 Unit: ng/mL 28 See Note INTERPRETIVE INFORMATION: Drug Screen 9 Panel, Serum or Plasma - Immunoassay Screen with Reflex to Mass Spectrometry Confirmation/Quantitation 1. Methodology: Qualitative Immunoassay Screen 2. Drugs/Drug classes reported as "Positive" are automatically reflexed to mass spectrometry confirmation/quantitation testing. An immunoassay unconfirmed positive screen result may be useful for medical purposes but does not meet forensic standards. 3. The absence of expected drug(s) and/or drug metabolite(s) may indicate non-compliance, inappropriate timing of specimen collection relative to drug administration, poor drug absorption, or limitations of testing. The concentration at which the screening test can detect a drug or metabolite varies within a drug class. Specimens for which drugs or drug classes are detected by the screen are automatically reflexed to a second, more specific technology (mass spectrometry). The concentration value must be greater than or equal to the cutoff to be reported as positive. Interpretive questions should be directed to the laboratory. 4. For medical purposes only; not valid for forensic use. Test developed and characteristics determined by [facility]. See Compliance Statement B: Novel/ Performed by [facility], [address] [place] [address] [email or web address], Will Blanton MD, Lab. Director 29 Negative ng/mL Reference range: Cutoff 75 Unless otherwise specified, testing performed by [facility] [place] [address] 30 Unit: ng/mL INTERPRETIVE INFORMATION: Benzodiazepines, Serum or Plasma, Quantitative Methodology: Quantitative Liquid Chromatography-Tandem Mass Spectrometry. Positive cutoff: 20 ng/mL unless specified below: Diazepam 5 ng/mL Alprazolam 5 ng/mL Alpha-hydroxyalprazolam 5 ng/mL Clonazepam 5 ng/mL 7-aminoclonazepam 5 ng/mL For medical purposes only; not valid for forensic use. Identification of specific drug(s) taken by specimen donor is problematic due to common metabolites, some of which are prescription drugs themselves. The absence of expected drug(s) and/or drug metabolite(s) may indicate non-compliance, inappropriate timing of specimen collection relative to drug administration, poor drug absorption, or limitations of testing. The concentration value must be greater than or equal to the cutoff to be reported as positive. Interpretive questions should be directed to the laboratory. Test developed and characteristics determined by [facility]. See Compliance Statement B: Novel/CS 31 Unit: ng/mL 32 Unit: ng/mL 33 Unit: ng/mL 34 Unit: ng/mL 35 Unit: ng/mL Consistent with use of a drug containing alprazolam, such as Xanax. 36 Unit: ng/mL 37 Unit: ng/mL 38 Unit: ng/mL 39 Unit: ng/mL 40 Unit: ng/mL 41 Unit: ng/mL Performed by [facility], [address] [place] [address] [email or web address], Will Blanton MD, Lab. Director 42 INTERPRETIVE INFORMATION: Opiates, Serum or Plasma, Quantitative Methodology: Quantitative Liquid Chromatography-Tandem Mass Spectrometry Positive cutoff: 2 ng/mL For medical purposes only; not valid for forensic use. Identification of specific drug(s) taken by specimen donor is problematic due to common metabolites, some of which are prescription drugs themselves. The absence of expected drug(s) and/or drug metabolite(s) may indicate non-compliance, inappropriate timing of specimen collection relative to drug administration, poor drug absorption, or limitations of testing. All drugs covered are the non-glucuronidated (free) form. The concentration value must be greater than or equal to the cutoff to be reported as positive. A very small amount of an unexpected drug analyte in the presence of a large amount of an expected drug analyte may reflect pharmaceutical impurity. Interpretive questions should be directed to the laboratory. Test developed and characteristics determined by [facility]. See Compliance Statement B: [email or web address]/CS 43 Oxycodone is not a recognized metabolite of other opiates and its presence indicates use of an oxycodone-containing drug. Oxycodone is metabolized to oxymorphone. 44 Performed by [facility], [address] [place] [id number] [email or web address], Will Blanton MD, Lab. Director 45 Concerning GFR Guidelines for Americans: Normal function or mild renal disease, if clinically at risk: >/= 60 mL/min Moderately decreased: 30-59 Severely decreased: 15-29 Renal failure: <15 46 Concerning GFR Guidelines: Normal function or mild renal disease, if clinically at risk: >/= 60 mL/min Moderately decreased: 30-59 Severely decreased: 15-29 Renal failure: <15 Glomerular Filtration Rate (GFR) is estimated based on the MDRD equation, which assumes a steady state for creatinine as recommended by the National Kidney Disease Education Program in conjunction with the National Institutes of Health and the National Kidney Foundation. Clinical conditions in which it may be necessary to measure GFR by using clearance methods include extremes of age and body size, severe malnutrition or obesity, diseases of skeletal muscle, paraplegia or quadriplegia, vegetarian diet, rapidly changing kidney function, and calculation of the dose of potentially toxic drugs that are excreted by the kidneys. 47 Per NCEP ATP III Guidelines: Results lower than 40 mg/dL are suggestive of increased risk for coronary artery disease. Results > or = to 60 mg/dL are considered a negative risk factor. 48 Per NCEP ATP III Guidelines: Normal Population <130 Patients with medical conditions: CHD/DM Optimal: <100 Borderline high: 130-159 High: 160-189 Very high: >189 49 <=0.49 ug/mL - Low likelihood of DIC, DVT or Pulmonary Embolism >0.49 ug/mL - Additional testing should be done to rule out DIC, DVT, or Pulmonary embolism as clinically indicated. ([facility] has established a 97.89% negative predictive value for thrombotic disease when a cutoff value of 0.5 ug/mL is used.) 50 Per NCEP ATP III Guidelines: Results lower than 40 mg/dL are suggestive of increased risk for coronary artery disease. Results > or = to 60 mg/dL are considered a negative risk factor. 51 Per NCEP ATP III Guidelines: Normal Population <130 Patients with medical conditions: CHD/DM Optimal: <100 Borderline high: 130-159 High: 160-189 Very high: >189 52 Concerning GFR Guidelines for Americans: Normal function or mild renal disease, if clinically at risk: >/= 60 mL/min Moderately decreased: 30-59 Severely decreased: 15-29 Renal failure: <15 53 Concerning GFR Guidelines: Normal function or mild renal disease, if clinically at risk: >/= 60 mL/min Moderately decreased: 30-59 Severely decreased: 15-29 Renal failure: <15 Glomerular Filtration Rate (GFR) is estimated based on the MDRD equation, which assumes a steady state for creatinine as recommended by the National Kidney Disease Education Program in conjunction with the National Institutes of Health and the National Kidney Foundation. Clinical conditions in which it may be necessary to measure GFR by using clearance methods include extremes of age and body size, severe malnutrition or obesity, diseases of skeletal muscle, paraplegia or quadriplegia, vegetarian diet, rapidly changing kidney function, and calculation of the dose of potentially toxic drugs that are excreted by the kidneys. 54 THERAPEUTIC INR RANGE: 2.0 - 3.0 DVT, Pulmonary embolus, prophylaxis against venous thrombosis or systemic embolization in high risk patients. 2.5 - 3.5 Mechanical heart valves 55 QUERY: Anticoagulant Therapy? N QUERY: Date of Last Dose: QUERY: Time of Last Dose: 56 Note: Persistent reduction for 3 months or more in an eGFR <60 mL/min/1.73 m2 defines CKD. Patients with eGFR values >/=60 mL/min/1.73 m2 may also have CKD if evidence of persistent proteinuria is present. The original MDRD equation for estimated GFR is not valid for patients less than 18 years of age. Additional information may be found at www.kdoqi.org. 57 FASTING Procedures Date Code Description Status 06/15/2019 00336 Brief Emotional/Behav Assessment W/ Scoring Doc Per Completed Standard Inst 09/04/2017 47352 X-Ray Knees Bilateral Standing Ap Completed 09/04/2017 16435 X-Ray Knee Complete W/Obliques & Tunnel And/Or Standing Completed Views 04/01/2017 82970 X-Ray Knee Complete W/Obliques & Tunnel And/Or Standing Completed Views 04/01/2017 10388 X-Ray Knee Complete W/Obliques & Tunnel And/Or Standing Completed Views 04/01/2017 28971 X-Ray Spine Lumbosacral Complete W/Oblique Views Completed 11/01/2016 36023 X-Ray Knee Complete W/Obliques & Tunnel And/Or Standing Completed Views 11/01/2016 06013 Inject/Drain Joint/Bursa Major W/Out Ultrasound Completed Guidance 01/22/2016 33518 Inject/Drain Joint/Bursa Major W/Out Ultrasound Completed Guidance 09/06/2015 10450 Omt 5-6 Body Regions Completed 04/28/2015 65167 X-Ray Ankle Complete Completed 03/23/2015 27400 X-Ray Knees Bilateral Standing Ap Completed 03/23/2015 94715 X-Ray Knee Complete W/Obliques & Tunnel And/Or Standing Completed Views 03/23/2015 81389 X-Ray Knee Complete W/Obliques & Tunnel And/Or Standing Completed Views 03/23/2015 77763 X-Ray Knee Ap & Lateral Completed 03/23/2015 39558 Inject/Drain Joint/Bursa Major W/Out Ultrasound Completed Guidance 03/01/2015 89112332 Colonoscopy Completed 09/26/2014 39915 Inject/Drain Joint/Bursa Major W/Out Ultrasound Completed Guidance 01/28/2013 17402 Omt 3-4 Body Regions Completed 06/10/2012 06909 Omt 3-4 Body Regions Completed 04/16/2012 31543 Omt 3-4 Body Regions Completed 04/02/2012 95286 Omt 3-4 Body Regions Completed 03/19/2012 64091 Omt 3-4 Body Regions Completed 02/06/2012 59295 Omt 3-4 Body Regions Completed 01/29/2012 87190 Omt 5-6 Body Regions Completed 01/27/2012 47735 Omt 3-4 Body Regions Completed 01/17/2012 53097 Omt 3-4 Body Regions Completed 01/01/2012 96210 Omt 3-4 Body Regions Completed 12/12/2011 16394 Omt 3-4 Body Regions Completed 11/21/2011 90579 Omt 7-8 Body Regions Completed 11/05/2011 24504 Mammography Unilateral Completed 10/29/2011 59443 Mammography Unilateral Completed Encounters Type Date Location Provider Dx Diagnosis Office Visit 04/15/2019 11:15a [facility] [place] DO M25.561 Pain in RIGHT knee M25.562 Pain in LEFT knee M54.5 Low back pain K58.0 Irritable bowel syndrome with diarrhea F40.01 Agoraphobia with panic disorder K52.3 Indeterminate colitis F43.12 Post-traumatic stress disorder, chronic G47.00 Insomnia, unspecified M25.541 Pain in joints of RIGHT hand N94.10 Unspecified dyspareunia R21 Rash and other nonspecific skin eruption E66.9 Obesity, unspecified K21.9 Gastro-esophageal reflux disease without esophagitis K59.00 Constipation, unspecified R53.83 Other fatigue Z68.30 Body mass index (BMI) 30.0-30.9, adult Office Visit 02/19/2019 11:15a [facility] [place] DO Z01.810 Encounter for preprocedural cardiovascular examination M25.561 Pain in RIGHT knee E66.9 Obesity, unspecified M25.562 Pain in LEFT knee M54.5 Low back pain K58.0 Irritable bowel syndrome with diarrhea F40.01 Agoraphobia with panic disorder K52.3 Indeterminate colitis F43.12 Post-traumatic stress disorder, chronic G47.00 Insomnia, unspecified K21.9 Gastro-esophageal reflux disease without esophagitis M25.541 Pain in joints of RIGHT hand N94.10 Unspecified dyspareunia R21 Rash and other nonspecific skin eruption Z68.30 Body mass index (BMI) 30.0-30.9, adult Office Visit 10/29/2018 4:15p [facility] [place] DO M25.562 Pain in LEFT knee M54.5 Low back pain K58.0 Irritable bowel syndrome with diarrhea F40.01 Agoraphobia with panic disorder K52.3 Indeterminate colitis F43.12 Post-traumatic stress disorder, chronic G47.00 Insomnia, unspecified K21.9 Gastro-esophageal reflux disease without esophagitis M25.561 Pain in RIGHT knee M25.541 Pain in joints of RIGHT hand Z68.28 Body mass index (BMI) 28.0-28.9, adult Office Visit 07/22/2018 4:15p [facility] [place] DO M25.562 Pain in LEFT knee M25.551 Pain in RIGHT hip M54.5 Low back pain K58.0 Irritable bowel syndrome with diarrhea F40.01 Agoraphobia with panic disorder K52.3 Indeterminate colitis F43.12 Post-traumatic stress disorder, chronic G47.00 Insomnia, unspecified K21.9 Gastro-esophageal reflux disease without esophagitis M25.561 Pain in RIGHT knee Z68.25 Body mass index (BMI) 25.0-25.9, adult Office Visit 05/07/2018 4:15p [facility] [place] DO G47.00 Insomnia, unspecified M54.5 Low back pain K21.9 Gastro-esophageal reflux disease without esophagitis F43.12 Post-traumatic stress disorder, chronic F40.01 Agoraphobia with panic disorder K58.0 Irritable bowel syndrome with diarrhea K52.3 Indeterminate colitis M25.562 Pain in LEFT knee M25.561 Pain in RIGHT knee R21 Rash and other nonspecific skin eruption Z68.27 Body mass index (BMI) 27.0-27.9, adult Office Visit 03/24/2018 11:30a [facility] [place] DO G47.00 Insomnia, unspecified M54.5 Low back pain K21.9 Gastro-esophageal reflux disease without esophagitis F43.12 Post-traumatic stress disorder, chronic F40.01 Agoraphobia with panic disorder K58.0 Irritable bowel syndrome with diarrhea K52.3 Indeterminate colitis M25.562 Pain in LEFT knee M25.561 Pain in RIGHT knee R21 Rash and other nonspecific skin eruption Z68.26 Body mass index (BMI) 26.0-26.9, adult Office Visit 10/27/2017 11:15a [facility] [place] DO G47.00 Insomnia, unspecified M54.5 Low back pain K21.9 Gastro-esophageal reflux disease without esophagitis F43.12 Post-traumatic stress disorder, chronic F40.01 Agoraphobia with panic disorder K58.0 Irritable bowel syndrome with diarrhea K52.3 Indeterminate colitis S23.41xA Sprain of ribs, initial encounter Office Visit 09/04/2017 2:45p [facility] [place] DO M25.562 Pain in LEFT knee M25.561 Pain in RIGHT knee R41.82 Altered mental status, unspecified R60.9 Edema, unspecified F11.229 Opioid dependence with intoxication, unspecified Office Visit 08/06/2017 11:15a [facility] [place] DO G47.00 Insomnia, unspecified M54.5 Low back pain M25.561 Pain in RIGHT knee M25.562 Pain in LEFT knee K21.9 Gastro-esophageal reflux disease without esophagitis F43.12 Post-traumatic stress disorder, chronic F40.01 Agoraphobia with panic disorder K58.0 Irritable bowel syndrome with diarrhea Office Visit 06/26/2017 4:15p [facility] [place] DO G47.00 Insomnia, unspecified M54.5 Low back pain M25.561 Pain in RIGHT knee M25.562 Pain in LEFT knee K21.9 Gastro-esophageal reflux disease without esophagitis F43.12 Post-traumatic stress disorder, chronic F40.01 Agoraphobia with panic disorder K58.0 Irritable bowel syndrome with diarrhea Office Visit 05/01/2017 6:10p [facility] [place] DO E03.9 Hypothyroidism , unspecified D64.9 Anemia, unspecified Office Visit 04/11/2017 11:15a [facility] [place] DO E03.9 Hypothyroidism , unspecified D64.9 Anemia, unspecified G47.00 Insomnia, unspecified R41.82 Altered mental status, unspecified M54.5 Low back pain M25.561 Pain in RIGHT knee M25.562 Pain in LEFT knee K21.9 Gastro-esophageal reflux disease without esophagitis K02.9 Dental caries, unspecified Office Visit 03/31/2017 3:30p [facility] [place] DO M54.5 Low back pain M25.561 Pain in RIGHT knee M25.562 Pain in LEFT knee R41.82 Altered mental status, unspecified Office Visit 02/28/2017 2:45p [facility] [place] DO F43.12 Post- traumatic stress disorder, chronic F40.01 Agoraphobia with panic disorder K58.0 Irritable bowel syndrome with diarrhea M54.5 Low back pain G47.00 Insomnia, unspecified M25.561 Pain in RIGHT knee M25.562 Pain in LEFT knee S21.002A Unspecified open wound of LEFT breast, initial encounter L72.3 Sebaceous cyst Office Visit 01/03/2017 4:15p [facility] [place] DO N61.1 Abscess of the breast and nipple R19.05 Periumbilic swelling, mass or lump F43.12 Post-traumatic stress disorder, chronic F40.01 Agoraphobia with panic disorder K58.0 Irritable bowel syndrome with diarrhea M54.5 Low back pain G47.00 Insomnia, unspecified M25.561 Pain in RIGHT knee M25.562 Pain in LEFT knee Office Visit 11/01/2016 11:15a [facility] [place] DO M25.562 Pain in LEFT knee F43.12 Post-traumatic stress disorder, chronic F40.01 Agoraphobia with panic disorder K58.0 Irritable bowel syndrome with diarrhea M54.5 Low back pain G47.00 Insomnia, unspecified M25.561 Pain in RIGHT knee Office Visit 08/30/2016 4:15p [facility] [place] DO F43.12 Post- traumatic stress disorder, chronic F40.01 Agoraphobia with panic disorder K58.0 Irritable bowel syndrome with diarrhea M25.569 Pain in unspecified knee M54.5 Low back pain G47.00 Insomnia, unspecified N61.1 Abscess of the breast and nipple Office Visit 06/28/2016 11:15a [facility] [place] DO M25.569 Pain in unspecified knee M54.5 Low back pain G47.00 Insomnia, unspecified R53.83 Other fatigue R41.0 Disorientation, unspecified R42 Dizziness and giddiness Office Visit 05/21/2016 10:00a [facility] [place] DO R60.9 Edema, unspecified M25.572 Pain in LEFT ankle and joints of LEFT foot E78.2 Mixed hyperlipidemia Office Visit 05/10/2016 11:15a [facility] [place] DO F43.12 Post- traumatic stress disorder, chronic F40.01 Agoraphobia with panic disorder K58.0 Irritable bowel syndrome with diarrhea G47.00 Insomnia, unspecified M54.5 Low back pain M25.569 Pain in unspecified knee Office Visit 03/22/2016 11:15a [facility] [place] DO F43.12 Post- traumatic stress disorder, chronic F40.01 Agoraphobia with panic disorder K58.0 Irritable bowel syndrome with diarrhea G47.00 Insomnia, unspecified M54.5 Low back pain M25.569 Pain in unspecified knee Office Visit 01/22/2016 11:15a [facility] [place] DO F43.12 Post- traumatic stress disorder, chronic F40.01 Agoraphobia with panic disorder K58.0 Irritable bowel syndrome with diarrhea G47.00 Insomnia, unspecified M54.5 Low back pain M25.569 Pain in unspecified knee M25.561 Pain in RIGHT knee M25.562 Pain in LEFT knee Office Visit 11/23/2015 11:15a [facility] [place] DO F43.12 Post- traumatic stress disorder, chronic F40.01 Agoraphobia with panic disorder K58.0 Irritable bowel syndrome with diarrhea G47.00 Insomnia, unspecified M54.5 Low back pain M25.569 Pain in unspecified knee M72.2 Plantar fascial fibromatosis B07.9 Viral wart, unspecified J30.9 Allergic rhinitis, unspecified Office Visit 09/06/2015 11:15a [facility] [place] DO F43.12 Post- traumatic stress disorder, chronic F40.01 Agoraphobia with panic disorder K58.0 Irritable bowel syndrome with diarrhea G47.00 Insomnia, unspecified M54.5 Low back pain M25.569 Pain in unspecified knee M72.2 Plantar fascial fibromatosis B07.9 Viral wart, unspecified M99.03 Segmental and somatic dysfunction of lumbar region J30.9 Allergic rhinitis, unspecified Office Visit 07/04/2015 11:00a [facility] [place] DO 728.71 Fibromatosis Plantar Fascia 719.46 Pain Joint Lower Leg 309.81 Posttraumatic Stress Disorder 300.21 Agoraphobia W/ Panic Disorder 564.1 Irritable Bowel Syndrome 780.52 Sleep Disturbance, Insomnia Unspecified 724.2 Lumbago Office Visit 04/28/2015 11:15a [facility] [place] DO 719.46 Pain Joint Lower Leg 309.81 Posttraumatic Stress Disorder 300.21 Agoraphobia W/ Panic Disorder 564.1 Irritable Bowel Syndrome 780.52 Sleep Disturbance, Insomnia Unspecified 724.2 Lumbago 719.47 Pain Joint Ankle & Foot Office Visit 03/23/2015 11:15a [facility] [place] DO 719.46 Pain Joint Lower Leg 309.81 Posttraumatic Stress Disorder 300.21 Agoraphobia W/ Panic Disorder 564.1 Irritable Bowel Syndrome 780.52 Sleep Disturbance, Insomnia Unspecified 724.2 Lumbago Office Visit 02/13/2015 4:15p [facility] [place] DO 309.81 Posttraumatic Stress Disorder 300.21 Agoraphobia W/ Panic Disorder 780.52 Sleep Disturbance, Insomnia Unspecified 564.1 Irritable Bowel Syndrome 724.2 Lumbago 719.46 Pain Joint Lower Leg Office Visit 01/04/2015 11:15a [facility] [place] DO 309.81 Posttraumatic Stress Disorder 300.21 Agoraphobia W/ Panic Disorder 780.52 Sleep Disturbance, Insomnia Unspecified 564.1 Irritable Bowel Syndrome 724.2 Lumbago V77.91 Screening For Lipoid Disorders V73.99 Screening Examination Viral Disease Unspec Plan of Treatment Future Appointment(s):08/16/2019 11:15 am - [place] DO at [facility]06/15/2019 - [place] DOM25.561 Pain in RIGHT kneeComments:The patient recently underwent a arthroscopic repair of the right knee on 03/16/[address] Ochoa. She states she tolerated the procedure well. Emphasized the importance of PT and was advised the patient to follow up with PT as scheduled. She will follow up with Dr. Ochoa as scheduled. We will continue to monitor.Follow up: Follow up in 2-3 months - 11:15 manipulation apptM25.562 Pain in LEFT kneeM54.5 Low back painK58.0 Irritable bowel syndrome with fpxpbpngQ94.01 Agoraphobia with panic mzxdueigK67.3 Indeterminate uacvuksN15.12 Post-traumatic stress disorder, ruzfuchZ20.00 Insomnia, bzctmnbcuunK76.541 Pain in joints of RIGHT handN94.10 Unspecified dkkfkhxuywwG72 Rash and other nonspecific skin faqqzzvpV78.9 Gastro-esophageal reflux disease without jjyguvgyuuiK82.00 Constipation, unspecifiedComments:Maybe related change from Flurazepam to Temazepam. We will monitor, can start taking Temazepam halftablet. We will continue to monitor.R53.83 Other fatigueComments:Maybe related medications, but not as bad today. We will continue to monitor.E66.9 Obesity, unspecifiedComments:The patient had gained around 1lbs of body weight since the previous visit and she currently weighs around 184lbs. A detailed discussion was had with the patient regarding her body weight and BMI. She was made aware about the health hazards of obesity including diabetes, hypertension, cardiac diseases, and other various risk factors. She was advised to maintain a healthy , low-calorie diet and a regular exercise regimen which will help her lose weight.Z68.30 Body mass index (BMI) 30.0-30.9, adultComments:Her BMI is at 30.2. She was strongly encouraged to lose weight with low-calorie diet and exercises. We will continue to monitor her weight and BMI periodically.
--- NOTE | 2019-07-04 11:26 | ED ---
Lower Extremity - HPI Summary HPI Summary: Pt. is a 53 y.o female who presents to the ER for exacerbation of left knee pain x several days. Pt. notes she has chronic knee pain and sees ortho, Dr. Ochoa. Pt. denies any known new injuries or falls but states she has had a growing bruise to her left knee. She also notes left calf pain. Denies fever, cp , sob. Sxs are mild in severity. No current modifying factors. - History of Current Complaint Chief Complaint: EDExtremityLower Stated Complaint: L KNEE PAIN PER PT Time Seen by Provider: 07/04/19 11:23 Hx Obtained From: Patient Pain Intensity: 7 - Allergies/Home Medications Allergies/Adverse Reactions: Allergies Allergy/AdvReac Type Severity Reaction Status Date / Time fentanyl Allergy Severe Rash Verified 07/04/19 11:10 bee venom protein (honey bee) Allergy Anaphylatic Verified 07/04/19 12:04 Shock latex Allergy Rash Verified 07/04/19 11:10 morphine Allergy Rash Verified 07/04/19 11:10 sulfite Allergy REACTIONS Verified 07/04/19 11:10 A CHILD//ASTHMA "MOST OPIATES" Allergy Rash Uncoded 03/16/19 07:15 PMH/Surg Hx/FS Hx/Imm Hx Previously Healthy: Yes Endocrine/Hematology History: Reports: Hx Thyroid Disease - LEVELS BORDERLINE PER PATIENT, Hx Anemia - HX OF Denies: Hx Diabetes Cardiovascular History: Reports: Hx Valvular Heart Disease - mvp Denies: Hx Hypertension, Hx Pacemaker/ICD, Other Cardiovascular Problems/ Disorders Respiratory History: Reports: Hx Asthma - PRN INHALER, Hx Sleep Apnea - ? Denies: Other Respiratory Problems/Disorders GI History: Reports: Hx Gastroesophageal Reflux Disease, Hx Irritable Bowel, Hx Ulcer - 1983 Denies: Other GI Disorders History: Reports: Other Problems/Disorders - History of UTIs, none recent Denies: Hx Renal Disease Musculoskeletal History: Reports: Hx Arthritis - BOTH KNEES, BACK, all over, Hx Bursitis - Right hip-possibly, Hx Tendonitis - HX OF Comment Only: Other Musculoskeletal History - bilateral knee pain, right torn meniscus Sensory History: Denies: Hx Contacts or Glasses, Hx Hearing Aid Opthamlomology History: Denies: Hx Contacts or Glasses Neurological History: Reports: Hx Headaches, Hx Migraine, Other Neuro Impairments/Disorders - PANIC DISORDER, PTSD Denies: Hx Nerve Disease Psychiatric History: Reports: Hx Anxiety - on meds, Hx Depression - on meds, Hx Panic Disorder - OK FOR MRI, Hx Post Traumatic Stress Disorder, Other Psychiatric Issues/Disorders - Hx self harm Denies: Hx Eating Disorder, Hx of Violent Episodes Against Others - Surgical History Surgery Procedure, Year, and Place: LEFT OVARY REMOVED, 2005. LAPAROSCOPY TO REMOVE CYST, 1997. BREAST AUGMENTATION, 2007. [facility] SURGERY[place], 2009. ARTHROSCOPIC LEFT KNEE, 04/30/18. LEFT INDEX FINGER 1993 Hx Anesthesia Reactions: Yes - opiate sensitive, takes benadryl with them Infectious Disease History: No Infectious Disease History: Denies: Traveled Outside the [place] in Last 30 Days - Family History Known Family History: Positive: Other - When asked, the patient is unsure - Social History Alcohol Use: Rare Alcohol Amount: 1 q 3 months Hx Substance Use: Yes Substance Use Type: Reports: None Substance Use Comment - Amount & Last Used: OXYCONTIN Hx Tobacco Use: Yes Smoking Status (MU): Light Every Day Tobacco Smoker Type: Cigarettes Amount Used/How Often: 3 per day Have You Smoked in the Last Year: Yes Review of Systems Constitutional: Negative Cardiovascular: Negative Respiratory: Negative Positive: Other - left knee pain and calf pain Positive: Bruising - left knee Neurological: Negative Negative: Weakness, Paresthesia, Numbness All Other Systems Reviewed And Are Negative: Yes Physical Exam Triage Information Reviewed: Yes Vital Signs On Initial Exam: Initial Vitals Temp Pulse Resp BP Pulse Ox 97.6 F 95 16 101/77 97 07/04/19 11:06 07/04/19 11:06 07/04/19 11:06 07/04/19 11:06 07/04/19 11:06 Vital Signs Reviewed: Yes Appearance: Positive: Well-Appearing - Pt. lying in bed in NAD. Very talkative. Skin: Positive: Warm, Dry Head/Face: Positive: Normal Head/Face Inspection Eyes: Positive: Normal, EOMI Neck: Positive: Supple Musculoskeletal: Positive: Other - Mild left calf tenderness. Good pedal pulse Small area of ecchymosis notes to the lateral aspect of left knee. Full ROM of knee with pain. No overlying erythema or increased warmth. Neurological: Positive: Normal, CN Intact II-III Psychiatric: Positive: Affect/Mood Appropriate Diagnostics - Vital Signs Vital Signs Temp Pulse Resp BP Pulse Ox 07/04/19 11:06 97.6 F 95 16 101/77 97 - Laboratory Lab Statement: Any lab studies that have been ordered have been reviewed, and results considered in the medical decision making process. Lower Extremity Course/Dx - Course Course Of Treatment: U/S and xray negative for acute findings other than small effusion per radiology. Pt. notes she has an apt. with ortho. tomorrow. To f.u as scheduled. - Diagnoses Differential Diagnosis/HQI/PQRI: Positive: Dislocation, DVT, Fracture (Closed), Sprain, Strain Provider Diagnoses: Knee effusion, Ecchymosis Discharge - Sign-Out/Discharge Documenting (check all that apply): Patient Departure Patient Received Moderate/Deep Sedation with Procedure: No - Discharge Plan Condition: Good Disposition: HOME Patient Education Materials: Knee Pain (ED) Referrals: Yennifer Ochoa MD [Medical Doctor] - [place] Red DO [Primary Care Provider] - Additional Instructions: Follow up with ortho tomorrow as scheduled Ice and elevate Tylenol or Motrin for pain as directed Return to ER if symptoms change or worsen - Billing Disposition and Condition Condition: GOOD Disposition: Home
[2019-07-04 14:12] VITALS: BP 106/53
== END 2019-07-04 14:11 | disposition home or self-care (01) ==
LOC: ED 11:03
DX: M25.462 Effusion, left knee (principal); M17.12 Unilateral primary osteoarthritis, left knee; R23.3 Spontaneous ecchymoses; M79.662 Pain in left lower leg; I34.1 Nonrheumatic mitral (valve) prolapse; J45.909 Unspecified asthma, uncomplicated; F41.9 Anxiety disorder, unspecified; F32.9 Major depressive disorder, single episode, unspecified; Z88.5 Allergy status to narcotic agent; Z91.030 Bee allergy status; Z91.040 Latex allergy status; F17.210 Nicotine dependence, cigarettes, uncomplicated
CPT/HCPCS: 99281

== ENCOUNTER 2019-07-29 16:08 | Emergency (ER) | payer OTHER ==
[2019-07-29 16:36] VITALS: BP 108/84
--- NOTE | 2019-07-29 16:49 | UC ---
Skin Complaint HPI - HPI Summary HPI Summary: 54-year-old female who has been area on her left side she thinks is a bull's- eye rash. She states that she had a tick bite in the past and she called her primary care provider this weekend who started her on doxycycline 100 mg by mouth twice a day 10 days. The patient stated to the nurse she took 2 Xanax prior to arrival. She then went on to clarify that she takes doxycycline when she has any of her piercings become infected and that's why her primary care doctor started her on the doxycycline. She does not recall any tick bite to her left upper thigh. - History of Current Complaint Chief Complaint: UCSkin Time Seen by Provider: 07/29/19 16:31 Stated Complaint: LEFT THIGH SKIN CONCERN Hx Obtained From: Patient ?: No Onset/Duration: Gradual Onset Skin Exposure Onset/Duration: Days Ago Timing: Constant Onset Severity: Mild Current Severity: None Pain Intensity: 0 Location: Other - Left upper thigh. Aggravating Factor(s): Nothing Alleviating Factor(s): Nothing Associated Signs & Symptoms: Positive: Negative - Allergy/Home Medications Allergies/Adverse Reactions: Allergies Allergy/AdvReac Type Severity Reaction Status Date / Time fentanyl Allergy Severe Rash Verified 07/29/19 16:22 bee venom protein (honey bee) Allergy Anaphylatic Verified 07/29/19 16:22 Shock latex Allergy Rash Verified 07/29/19 16:22 morphine Allergy Rash Verified 07/29/19 16:22 sulfite Allergy REACTIONS Verified 07/29/19 16:22 A CHILD//ASTHMA "MOST OPIATES" Allergy Rash Uncoded 07/29/19 16:22 Home Medications: Home Medications DOXYcycline CAP(*) [DOXYcycline 100MG CAP(*)] 100 mg PO BID 07/29/19 [History Confirmed 07/29/19] PMH/Surg Hx/FS Hx/Imm Hx Previously Healthy: Yes Endocrine History: Diabetes, Thyroid Disease Respiratory History: Asthma - Surgical History Surgical History: Yes Surgery Procedure, Year, and Place: LEFT OVARY REMOVED, 2005. LAPAROSCOPY TO REMOVE CYST, 1997. BREAST AUGMENTATION, 2007. LSP SURGERY-[place], 2009. ARTHROSCOPIC LEFT KNEE, 04/30/18. LEFT INDEX FINGER 1993 - Family History Known Family History: Positive: Other - When asked, the patient is unsure - Social History Alcohol Use: Rare Alcohol Amount: 1 q 3 months Substance Use Type: None Substance Use Comment - Amount & Last Used: OXYCONTIN Smoking Status (MU): Current Some Day Smoker Type: Cigarettes Amount Used/How Often: 3 per day Have You Smoked in the Last Year: Yes When Did the Patient Quit Smoking/Using Tobacco: ONE WEEK Household Exposure Type: Cigarettes Review of Systems All Other Systems Reviewed And Are Negative: Yes Skin: Positive: Bruising - Pt has what appears to be an insect bite to the left upper thigh surrounded by bruising. This is not a bull's-eye rash. ENT: Positive: Nasal Discharge, Sinus Congestion Is Patient Immunocompromised?: No Physical Exam Triage Information Reviewed: Yes Appearance: Well-Appearing, No Pain Distress, Well-Nourished Vital Signs: Initial Vital Signs Temp 97.9 F 07/29/19 16:28 Pulse 75 07/29/19 16:28 Resp 16 07/29/19 16:28 BP 108/84 07/29/19 16:28 Pulse Ox 97 07/29/19 16:28 Vital Signs Reviewed: Yes Eyes: Positive: Conjunctiva Clear ENT: Positive: Hearing grossly normal, Pharynx normal, TMs normal, Uvula midline Neck: Positive: Supple, Nontender, No Lymphadenopathy Respiratory: Positive: Lungs clear, Normal breath sounds, No respiratory distress, No accessory muscle use Cardiovascular: Positive: RRR, No Murmur, Pulses Normal, Brisk Capillary Refill Musculoskeletal: Positive: Strength Intact, ROM Intact Neurological: Positive: Alert, Muscle Tone Normal Psychological Exam: Normal Skin: Positive: Other - Patient has what appears to be an insect bite to the left upper thigh surrounded by bruising. This is not erythema migrans. Course/Dx - Course Course Of Treatment: Patient is comfortable here. She was advised to continue the doxycycline and to contact her primary care provider to see if they would like to continue it for the full treatment for Lyme disease. She has already been on the doxycycline for 5 days therefore I did not draw any lab work for Lyme titer. She may follow-up with her primary care provider for further care. Patient is agreeable to this plan of action. - Diagnoses Provider Diagnosis: URI (upper respiratory infection), Insect bite Discharge ED - Sign-Out/Discharge Documenting (check all that apply): Patient Departure All imaging exams completed and their final reports reviewed: No Studies - Discharge Plan Condition: Good Disposition: HOME Patient Education Materials: Insect Bite or Sting (ED) Referrals: Dallas Red DO [Primary Care Provider] - Additional Instructions: No dairy products, antacids or multivitamins 2 hours before you take the doxycycline and 2 hours after you take the doxycycline however be sure and take it with food. Definitely call your primary care provider and advised him as to your visit here to see if he wants to continue the doxycycline for a total of 2 or 3 weeks to treat Lyme disease. The rash you have today is not a bull's-eye rash. - Billing Disposition and Condition Condition: GOOD Disposition: Home
== END 2019-07-29 17:07 | disposition home or self-care (01) ==
LOC: UCCORT 16:08
DX: S70.362A Insect bite (nonvenomous), left thigh, initial encounter (principal); W57.XXXA Bitten or stung by nonvenomous insect and other nonvenomous arthropods, initial encounter; Y92.9 Unspecified place or not applicable; J06.9 Acute upper respiratory infection, unspecified; E11.9 Type 2 diabetes mellitus without complications; Z88.6 Allergy status to analgesic agent; Z91.030 Bee allergy status; Z91.040 Latex allergy status; Z88.5 Allergy status to narcotic agent; Z91.048 Other nonmedicinal substance allergy status; Z72.0 Tobacco use
CPT/HCPCS: 99212; G0463

== ENCOUNTER 2019-08-14 19:19 | Emergency (ER) | payer OTHER ==
[2019-08-14 19:28] VITALS: BP 116/70
[2019-08-14] MEDS ORDERED: Sulfamethox/Trimethoprim DS 800/160* TAB PO ONE (19:54)
--- NOTE | 2019-08-14 21:01 | UC ---
Complaint Female HPI - HPI Summary HPI Summary: ONSET LAST NIGHT OF DYSURIA, FREQUENCY AND URGENCY. NO FEVER, NAUSEA, BACK PAIN. - History Of Current Complaint Chief Complaint: UCGU Stated Complaint: BURNING URINATION Time Seen by Provider: 08/14/19 19:35 Hx Obtained From: Patient Onset/Duration: Sudden Onset, Lasting Days - 1 DAY, Still Present Severity Initially: Mild Severity Currently: Mild Pain Intensity: 2 Pain Scale Used: 0-10 Numeric Character: Burning Aggravating Factor(s): Urination Alleviating Factor(s): Nothing Associated Signs And Symptoms: Positive: Negative - Allergies/Home Medications Allergies/Adverse Reactions: Allergies Allergy/AdvReac Type Severity Reaction Status Date / Time fentanyl Allergy Severe Rash Verified 08/14/19 19:28 bee venom protein (honey bee) Allergy Anaphylatic Verified 08/14/19 19:28 Shock latex Allergy Rash Verified 08/14/19 19:28 morphine Allergy Rash Verified 08/14/19 19:28 sulfite Allergy REACTIONS Verified 08/14/19 19:28 A CHILD//ASTHMA "MOST OPIATES" Allergy Rash Uncoded 08/14/19 19:28 Home Medications: Home Medications Phenazopyridine HCl [Urinary Pain Relief] 1 tab PO ONCE PRN 08/14/19 [History Confirmed 08/14/19] Temazepam 1 tab PO QPM 08/14/19 [History Confirmed 08/14/19] PMH/Surg Hx/FS Hx/Imm Hx - Additional Past Medical History Additional PMH: ARTHRITIS/CHRONIC PAIN Respiratory History: Asthma GI/ History: Ulcer - Surgical History Surgical History: Yes Surgery Procedure, Year, and Place: LEFT OVARY REMOVED, 2005. LAPAROSCOPY TO REMOVE CYST, 1997. BREAST AUGMENTATION, 2007. LSP SURGERY-[place], 2009. ARTHROSCOPIC LEFT KNEE, 04/30/18. LEFT INDEX FINGER 1993 - Family History Known Family History: Positive: Other - When asked, the patient is unsure - Social History Alcohol Use: Occasionally Alcohol Amount: 1 q 3 months Substance Use Type: Prescribed Substance Use Comment - Amount & Last Used: OXYCONTIN Smoking Status (MU): Current Some Day Smoker Type: Cigarettes Amount Used/How Often: 1 pack/week Have You Smoked in the Last Year: Yes When Did the Patient Quit Smoking/Using Tobacco: ONE WEEK Household Exposure Type: Cigarettes Review of Systems All Other Systems Reviewed And Are Negative: Yes Constitutional: Positive: Negative Respiratory: Positive: Negative Cardiovascular: Positive: Negative Gastrointestinal: Positive: Negative Genitourinary: Positive: Dysuria, Frequency, Urgency Physical Exam Triage Information Reviewed: Yes Appearance: Well-Appearing, No Pain Distress, Well-Nourished Vital Signs: Initial Vital Signs Temp 98 F 08/14/19 19:22 Pulse 89 08/14/19 19:22 Resp 18 08/14/19 19:22 BP 116/70 08/14/19 19:22 Pulse Ox 98 08/14/19 19:22 Laboratory Tests 08/14/19 19:39 POC Urine Color Dark yellow POC Urine Clarity Clear POC Urine pH 5.0 POC Ur Specif [place] <= 1.005 L POC Urine Protein Negative POC Ur Glucose (UA) Negative POC Urine Ketones Negative POC Urine Blood Negative POC Urine Nitrite Positive A POC Urine Bilirubin Negative POC Urine Urobilinogen 0.2 POC U Leukocyte Esteras Negative Vital Signs Reviewed: Yes Eyes: Positive: Conjunctiva Clear ENT: Positive: Hearing grossly normal Neck: Positive: Supple Respiratory: Positive: No respiratory distress, No accessory muscle use Cardiovascular: Positive: Pulses Normal Abdomen Description: Positive: Soft. Negative: CVA Tenderness (R), CVA Tenderness (L), Distended, Guarding Musculoskeletal: Positive: No Edema Neurological: Positive: Alert Psychological: Positive: Age Appropriate Behavior Skin: Negative: Rashes Complaint Female Dx - Course Course Of Treatment: PATIENT STATES SHE WAS PRESCRIBED DOXYCYCLINE FOR INFECTED NIPPLE PIERCING. SHE HAS TAKEN ONE DOSE SO FAR. IS CONCERNED ABOUT TAKING 2 SEPARATE ANTIBIOTICS AT THE SAME TIME. WILL GIVE BACTRIM TWICE DAILY FOR 10 DAYS WHICH WILL COVER HER UTI AND SHOULD ALSO COVER HER SKIN INFECTION. HAVE ADVISED PATIENT NOT TO TAKE THE DOXYCYCLINE AND TO INFORM HER PCP OF THIS MEDICATION CHANGE. - Differential Dx/Diagnosis Provider Diagnosis: UTI (urinary tract infection) Discharge ED - Sign-Out/Discharge Documenting (check all that apply): Patient Departure All imaging exams completed and their final reports reviewed: No Studies - Discharge Plan Condition: Stable Disposition: HOME Prescriptions: Sulfamethox/Trimethoprim DS* [Bactrim DS 800/160 TAB*] 1 tab PO BID #18 tab Patient Education Materials: Urinary Tract Infection in Women (ED) Referrals: Dallas Red DO [Primary Care Provider] - Additional Instructions: URINE DIP SUGGESTIVE OF URINARY TRACT INFECTION. TAKE THE BACTRIM TWICE DAILY. WILL GIVE A 10 DAY COURSE WHICH SHOULD ALSO COVER YOUR SKIN INFECTION. DO NOT TAKE THE DOXYCYCLINE. FOLLOW-UP WITH YOUR PCP PREVIOUSLY SCHEDULED FOR REEVALUATION OF YOUR SKIN INFECTION. - Billing Disposition and Condition Condition: STABLE Disposition: Home
--- NOTE | 2019-08-16 15:15 | UC ---
- Progress Note Progress Note: Urine culture negative. Stop anbx and f/u if symptoms still persisting Course/Dx - Diagnoses Provider Diagnoses: UTI (urinary tract infection) Discharge ED - Sign-Out/Discharge Documenting (check all that apply): Post-Discharge Follow Up All imaging exams completed and their final reports reviewed: No Studies - Discharge Plan Condition: Stable Disposition: HOME Prescriptions: Sulfamethox/Trimethoprim DS* [Bactrim DS 800/160 TAB*] 1 tab PO BID #18 tab Patient Education Materials: Urinary Tract Infection in Women (ED) Referrals: Dallas Red DO [Primary Care Provider] - Additional Instructions: URINE DIP SUGGESTIVE OF URINARY TRACT INFECTION. TAKE THE BACTRIM TWICE DAILY. WILL GIVE A 10 DAY COURSE WHICH SHOULD ALSO COVER YOUR SKIN INFECTION. DO NOT TAKE THE DOXYCYCLINE. FOLLOW-UP WITH YOUR PCP PREVIOUSLY SCHEDULED FOR REEVALUATION OF YOUR SKIN INFECTION. - Billing Disposition and Condition Condition: STABLE Disposition: Home
== END 2019-08-14 20:10 | disposition home or self-care (01) ==
LOC: UCEAST 19:19
DX: N39.0 Urinary tract infection, site not specified (principal); Z88.5 Allergy status to narcotic agent; F17.210 Nicotine dependence, cigarettes, uncomplicated
CPT/HCPCS: 81003; 87086; 99212; A9270-GY; G0463

== ENCOUNTER 2019-09-20 19:05 | Inpatient (IN) | payer OTHER ==
--- NOTE | 2019-09-20 19:11 | ED ---
Substance Abuse/Use - HPI Summary HPI Summary: Patient is a 54 y/o F presenting to [facility] via EMS for unresponsiveness. The patient is reported to have been found unresponsive on the ground, EMS was subsequently called. It is unknown how long the patient has been in this condition. EMS reports that they were told the patient had been responding to text messages two days ago. Patient did not respond to text messages yesterday. She was found with a bottle of temazepam. Prescription for 30 tablets was filled 5 days ago, there are 6 tablets left in a bottle currently. Patient was incontinent of urine. There is skin deterioration to right side noted. EMS reports that the patient was tachycardic, 12 lead was non-diagnostic for STEMI. Respiratory rate was around 20. EMS also reports that the patient has been leaning and gazing to the right. Home medications and allergies are reviewed. Patient is a level 5 caveat for unresponsiveness. - History Of Current Complaint Stated Complaint: UNRESPONSIVE,POSSIBLE OVERDOSE PER EMS Hx Obtained From: EMS Hx From Patient Unobtainable Due To: Altered Mental Status - Patient is a level 5 caveat for unresponsiveness. Ingestion History: Type/Name Of Drug - empty bottle of temazepam Overdose Characteristics: Oral - empty bottle of temazepam Character: Other - unresponsive Associated Signs And Symptoms: Altered Mental Status - unresponsive - Allergies/Home Medications Allergies/Adverse Reactions: Allergies Allergy/AdvReac Type Severity Reaction Status Date / Time fentanyl Allergy Severe Rash Verified 08/14/19 19:28 bee venom protein (honey bee) Allergy Anaphylatic Verified 08/14/19 19:28 Shock latex Allergy Rash Verified 08/14/19 19:28 morphine Allergy Rash Verified 08/14/19 19:28 sulfite Allergy REACTIONS Verified 08/14/19 19:28 A CHILD//ASTHMA "MOST OPIATES" Allergy Rash Uncoded 08/14/19 19:28 Home Medications: Home Medications ALPRAZolam [Alprazolam] 1 mg PO QID PRN MDD 6 mg 09/20/19 [History Confirmed 03/05] Fluticasone NASAL SPRAY 50MCG* [Flonase NASAL SPRAY 50MCG*] 2 spray BOTH NARES DAILY 09/20/19 [History Confirmed 09/20/19] Oxycodone TAB(NF) [Oxycodone HCl 10 MG] 15 - 30 mg PO Q4HR PRN 09/20/19 [ History Confirmed 09/20/19] Senna TAB 8.6 mg* [Senokot 8.6 mg TAB*] 1 tab PO BID PRN 09/20/19 [History Confirmed 09/20/19] Temazepam CAP* [Restoril CAP*] 30 mg PO BEDTIME MDD 30 mg 09/20/19 [History Confirmed 09/20/19] diPHENhydraMINE PO* [Benadryl PO 25 MG TAB*] 50 mg PO DAILY PRN 09/20/19 [ History Confirmed 09/20/19] tiZANidine TAB* [Zanaflex TAB*] 2 - 4 mg PO BEDTIME PRN 09/20/19 [History Confirmed 09/20/19] PMH/Surg Hx/FS Hx/Imm Hx Endocrine/Hematology History: Reports: Hx Thyroid Disease - LEVELS BORDERLINE PER PATIENT, Hx Anemia - HX OF Denies: Hx Diabetes Cardiovascular History: Reports: Hx Valvular Heart Disease - mvp Denies: Hx Hypertension, Hx Pacemaker/ICD, Other Cardiovascular Problems/ Disorders Respiratory History: Reports: Hx Asthma - PRN INHALER, Hx Sleep Apnea - ? Denies: Other Respiratory Problems/Disorders GI History: Reports: Hx Gastroesophageal Reflux Disease, Hx Irritable Bowel, Hx Ulcer - 1983 Denies: Other GI Disorders History: Reports: Other Problems/Disorders - History of UTIs, none recent Denies: Hx Renal Disease Musculoskeletal History: Reports: Hx Arthritis - BOTH KNEES, BACK, all over, Hx Bursitis - Right hip-possibly, Hx Tendonitis - HX OF Comment Only: Other Musculoskeletal History - bilateral knee pain, right torn meniscus Sensory History: Denies: Hx Contacts or Glasses, Hx Hearing Aid Opthamlomology History: Denies: Hx Contacts or Glasses Neurological History: Reports: Hx Headaches, Hx Migraine, Other Neuro Impairments/Disorders - PANIC DISORDER, PTSD Denies: Hx Nerve Disease Psychiatric History: Reports: Hx Anxiety - on meds, Hx Depression - on meds, Hx Panic Disorder - OK FOR MRI, Hx Post Traumatic Stress Disorder, Other Psychiatric Issues/Disorders - Hx self harm Denies: Hx Eating Disorder, Hx of Violent Episodes Against Others - Surgical History Surgery Procedure, Year, and Place: LEFT OVARY REMOVED, 2005. LAPAROSCOPY TO REMOVE CYST, 1997. BREAST AUGMENTATION, 2007. LSP SURGERY-[place], 2010. ARTHROSCOPIC LEFT KNEE, 04/30/18. LEFT INDEX FINGER 1994 Hx Anesthesia Reactions: Yes - opiate sensitive, takes benadryl with them - Family History Known Family History: Positive: Other - When asked, the patient is unsure - Social History Alcohol Use: Occasionally Alcohol Amount: 1 q 3 months Hx Substance Use: Yes Substance Use Type: Reports: Prescribed Substance Use Comment - Amount & Last Used: OXYCONTIN Hx Tobacco Use: Yes Smoking Status (MU): Current Some Day Smoker Type: Cigarettes Amount Used/How Often: 1 pack/week Have You Smoked in the Last Year: Yes Review of Systems - ROS Summary Review of Systems Summary: Patient is a level 5 caveat for unresponsiveness. Positive: incontinence - urine Skin: Other - skin deterioration Neurological: Other - positive - unresponsiveness, leaning and gazing to the right All Other Systems Reviewed And Are Negative: No - Comments Additional Review of Systems Comments: Patient is a level 5 caveat for unresponsiveness. Physical Exam - Summary Physical Exam Summary: Appearance: The patient is well-nourished in no acute distress and in no acute pain. She is filthy appearing. Skin: There are erythematous patches of skin. The skin is warm and dry, and skin color reflects adequate perfusion. HEENT: The head is normocephalic and atraumatic. The pupils are equal and reactive. The conjunctivae are clear and without drainage. Nares are patent and without drainage. Mouth reveals moist mucous membranes, and the throat is without erythema and exudate. The external ears are intact. The ear canals are patent and without drainage. The tympanic membranes are intact. Neck: The neck is supple with full range of motion and non-tender. There are no carotid bruits. There is no neck vein distension. Respiratory: Chest is non-tender. Lungs are clear to auscultation and breath sounds are symmetrical and equal. Cardiovascular: Heart is regular rate and rhythm. There is no murmur or rub auscultated. There is no peripheral edema and pulses are symmetrical and equal. Abdomen: The abdomen is soft and non-tender. There are normal bowel sounds heard in all four quadrants and there is no organomegaly palpated. Musculoskeletal: There is no back tenderness noted. Extremities are non-tender with full range of motion. There is good capillary refill. There is no peripheral edema or calf tenderness elicited. Neurological: Patient tracks with eyes but does not speak. GCS of 9. Psychiatric: The patient has an appropriate affect and does not exhibit any anxiety or depression. Triage Information Reviewed: Yes Vital Signs Reviewed: Yes Completion Of Physical Exam Limited Due To: Altered Mental Status, Level 5 - Hawthorne Coma Scale Best Eye Response: 4 - Spontaneous Best Motor Response: 4 - Withdraws Best Verbal Response: 1 - None Coma Scale Total: 9 Procedures - Sedation Patient Received Moderate/Deep Sedation with Procedure: No Diagnostics - Laboratory Result Diagrams: 09/20/19 19:22 09/20/19 19:19 Lab Statement: Any lab studies that have been ordered have been reviewed, and results considered in the medical decision making process. - Radiology CXR Radiology Interpretation Completed By: ED Physician Summary of Radiographic Findings: No acute process, pending official report. - CT BRAIN CT CT Interpretation Completed By: Radiologist Summary of CT Findings: IMPRESSION: 1. No acute intracranial findings. 2. Subcutaneous hematoma in the right frontal temporal region and partially. visualized in right periorbital region. THIS REPORT WAS REVIEWED BY DR. WILLETT. - EKG 1937 Cardiac Rate: Tachycardia - rate of 130 BPM EKG Rhythm: Sinus Tachycardia ST Segment: Non-Specific Summary of EKG Findings: EKG showed sinus tachycardia with rate of 130 BPM and diffuse, non-specific ST changes. This EKG was reviewed and interpreted by Dr. Willett. Re-Evaluation - Re-Evaluation First Eval Re-Evaluation Time: 20:00 Comment: Aware of trop of 0.25. Course/Dx - Course Course Of Treatment: Ms. Haddad was found down and poorly responsive in her home. Apparently someone tried to contact her yesterday and was unable to so went by today. EMS was called and they found her with her eyes open but nonverbal with clear evidence that she been lying on the ground for at least 24 hours. Here in the emergency department I felt her Hawthorne Coma Scale was 9 but that she was managing her airway very well. She was found to be in significant rhabdomyolysis and to be significantly intellectually impaired. She was given IV fluids here in the hospitalist service Dr. Black was consulted for admission to the ICU. - Diagnoses Provider Diagnoses: Coma, Rhabdomyolysis - Physician Notifications Discussed Care Of Patient With: Harshad Black Time Discussed With Above Provider: 20:53 Instructed by Provider To: Other - Patient's case was discussed with Dr. Black, Dr. Black accepts for admission. - Critical Care Time Critical Care Time: 30-74 min - 30 minutes CCT Discharge ED - Sign-Out/Discharge Documenting (check all that apply): Patient Departure - admit - Discharge Plan Condition: Fair Disposition: ADMITTED TO [facility] Referrals: Dallas Red DO [Primary Care Provider] - - Billing Disposition and Condition Condition: FAIR Disposition: Admitted to [facility] - Attestation Statements Document Initiated by Scribe: Yes Documenting Scribe: JOHANNE LEMOS Provider For Whom Benedict is Documenting (Include Credential): JULIO C WILLETT MD Scribe Attestation: IJOHANNE, scribed for JULIO C WILLETT MD on 09/20/19 at 2153. Scribe Documentation Reviewed: Yes Provider Attestation: The documentation as recorded by the JOHANNE do accurately reflects the service I personally performed and the decisions made by me, JULIO C WILLETT MD Status of Scribe Document: Viewed
[2019-09-20 19:29] LABS: Hematocrit 52 % (35-47); Hemoglobin 17.8 g/dL (12.0-16.0); Mean Corpuscular HGB Conc 34 g/dL (31-36); Mean Corpuscular Hemoglobin 30 pg (27-31); Mean Corpuscular Volume 89 fL (80-97); Mean Platelet Volume 10.4 fL (7.4-10.4); Platelet Count 334 10^3/uL (150-450); Red Cell Distribution Width 14 % (10-15); White Blood Count 32.2 10^3/uL (3.5-10.8)
[2019-09-20 19:38] LABS: INR 1.14 (0.82-1.09)
[2019-09-20 19:46] LABS: ALT 137 U/L (7-52); Albumin 4.5 g/dL (3.2-5.2); Albumin/Globulin Ratio 1.4 (1-3); Alkaline Phosphatase 114 U/L (34-104); Anion Gap 19 mmol/L (2-11); BUN/Creatinine Ratio 18.5 (8-20); Blood Urea Nitrogen 47 mg/dL (6-24); CO2 Carbon Dioxide 15 mmol/L (22-32); Calcium 9.5 mg/dL (8.6-10.3); Chloride 111 mmol/L (101-111); EGFR African American 23.8 (>60); EGFR Non-African American 19.6 (>60); Globulin 3.2 g/dL (2-4); Glucose 142 mg/dL (70-100); Potassium 3.5 mmol/L (3.5-5.0); Sodium 145 mmol/L (135-145); Total Protein 7.7 g/dL (6.4-8.9)
[2019-09-20 19:47] LABS: AST 450 U/L (13-39)
[2019-09-20] MEDS ORDERED: NS 0.9% 1000 ML** 2,000 ML IV ONE ×2 (19:54→22:57)
[2019-09-20 19:57] LABS: Alcohol < 10 mg/dL (<10)
[2019-09-20 19:59] LABS: Troponin I 0.25 ng/mL (<0.04)
[2019-09-20 20:13] LABS: ABS Basophils 0.1 10^3/ul (0-0.2); ABS Lymphocytes 1.3 10^3/ul (1.0-4.8); ABS Monocytes 1.7 10^3/ul (0-0.8); ABS Neutrophils 29.1 10^3/ul (1.5-7.7); Lymphocyte % 4.1 %
[2019-09-20 20:18] LABS: Urine Appearance Turbid; Urine Bacteria Absent (Absent); Urine Bilirubin Negative (Negative); Urine Blood 3+ (Negative); Urine Color Yellow; Urine Glucose 1+(50 mg/dL) (Negative); Urine Ketones Trace (Negative); Urine Nitrite Negative (Negative); Urine Protein 2+(100 mg/dL) (Negative); Urine Red Blood Cell 3+(>10/hpf) (Absent); Urine Specific Gravity 1.023 (1.010-1.030); Urine Urobilinogen Negative (Negative); Urine White Blood Cell Trace(0-5/hpf) (Absent)
[2019-09-20 20:26] LABS: Urine Benzodiazepine Screen Presumptive Positive (None Detect); Urine Opiates Screen None Detected (None Detect)
[2019-09-20 20:38] LABS: Creatine Kinase 42455 U/L (10-223)
[2019-09-20] MEDS ORDERED: NS 0.9% 1000 ML** 1,000 ML IV SCH (23:30)
[2019-09-20 23:36] LABS: Hematocrit 46 % (35-47); Hemoglobin 15.3 g/dL (12.0-16.0); Mean Corpuscular HGB Conc 33 g/dL (31-36); Mean Corpuscular Hemoglobin 30 pg (27-31); Mean Corpuscular Volume 90 fL (80-97); Platelet Count 246 10^3/uL (150-450); Red Blood Count 5.11 10^6 /uL (3.70-4.87); Red Cell Distribution Width 14 % (10-15); White Blood Count 26.2 10^3/uL (3.5-10.8)
[2019-09-20] MEDS ORDERED: Lactated Ringers 1000 ML Bag* 1,000 ML IV ONE (23:45)
[2019-09-20] MEDS ORDERED: Lactated Ringers 1000 ML Bag* 1,000 ML IV SCH (23:45)
[2019-09-20 23:54] LABS: ALT 140 U/L (7-52); AST 417 U/L (13-39); Albumin 3.5 g/dL (3.2-5.2); Albumin/Globulin Ratio 1.3 (1-3); Alkaline Phosphatase 84 U/L (34-104); BUN/Creatinine Ratio 21.6 (8-20); Blood Urea Nitrogen 41 mg/dL (6-24); Calcium 8.1 mg/dL (8.6-10.3); EGFR African American 33.2 (>60); EGFR Non-African American 27.4 (>60); Globulin 2.7 g/dL (2-4); Glucose 118 mg/dL (70-100); Indirect Bilirubin 0.5 mg/dL (0.3-1.0); Magnesium 2.8 mg/dL (1.9-2.7); Potassium 3.6 mmol/L (3.5-5.0); Sodium 145 mmol/L (135-145); Total Protein 6.2 g/dL (6.4-8.9)
[2019-09-21 00:02] LABS: Anion Gap 13 mmol/L (2-11); CO2 Carbon Dioxide 14 mmol/L (22-32); Chloride 118 mmol/L (101-111)
[2019-09-21 00:35] LABS: ABS Basophils 0.1 10^3/ul (0-0.2); ABS Lymphocytes 1.3 10^3/ul (1.0-4.8); ABS Monocytes 1.6 10^3/ul (0-0.8); ABS Neutrophils 23.2 10^3/ul (1.5-7.7); Lymphocyte % 4.9 %; Nucleated Red Blood Cells % 0.1
[2019-09-21 01:58] LABS: Phosphorus 4.2 mg/dL (2.5-5.0)
[2019-09-21 02:06] LABS: Creatine Kinase 42141 U/L (10-223)
[2019-09-21] MEDS: HYDROmorphone INJ* 0.5 MG/0.5 ML SYRINGE IV SLOW PU PRN ×3 (03:56→20:16)
[2019-09-21 05:23] LABS: ABS Basophils 0.1 10^3/ul (0-0.2); ABS Lymphocytes 1.5 10^3/ul (1.0-4.8); ABS Monocytes 1.4 10^3/ul (0-0.8); ABS Neutrophils 19.3 10^3/ul (1.5-7.7); Hematocrit 42 % (35-47); Hemoglobin 14.2 g/dL (12.0-16.0); Lymphocyte % 6.7 %; Mean Corpuscular HGB Conc 34 g/dL (31-36); Mean Corpuscular Hemoglobin 30 pg (27-31); Mean Corpuscular Volume 90 fL (80-97); Mean Platelet Volume 10.2 fL (7.4-10.4); Platelet Count 223 10^3/uL (150-450); Red Blood Count 4.72 10^6 /uL (3.70-4.87); Red Cell Distribution Width 14 % (10-15); White Blood Count 22.2 10^3/uL (3.5-10.8)
[2019-09-21 05:44] LABS: Blood Urea Nitrogen 33 mg/dL (6-24); CO2 Carbon Dioxide 17 mmol/L (22-32); EGFR African American 50.6 (>60); EGFR Non-African American 41.8 (>60); Glucose 117 mg/dL (70-100)
[2019-09-21 05:52] LABS: Chloride 120 mmol/L (101-111); Sodium 146 mmol/L (135-145)
[2019-09-21 05:58] LABS: Anion Gap 9 mmol/L (2-11)
[2019-09-21 06:32] LABS: Creatine Kinase 33675 U/L (10-223)
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
[2019-09-21 08:08] LABS: Potassium Redraw 3.6 mmol/L (3.5-5.0)
[2019-09-21] MEDS ORDERED: Lorazepam PYXIS KEY PRN (09:48)
[2019-09-21] MEDS ORDERED: Metoprolol Tartrate IV* 1 MG/ML 5 ML VIAL IV PRN (09:51)
--- NOTE | 2019-09-21 09:56 | PN ---
Subjective Date of Service: 09/21/19 Interval History: Ms. Haddad is not feeling well this morning. Communication is difficult as she will mostly just nod/shake her head to questions. She is unsure if she is feeling any better than yesterday as she has little to no recollection of the events from yesterday. She is having chest pain which is worse with breathing, movement, and palpation. Also admits to neck pain. Feeling very tired. Also admits to nausea, but is thirsty. Nursing reports patient has been more alert this morning compared to overnight. Family History: Unchanged from Admission Social History: Unchanged from Admission Past Medical History: Unchanged from Admission Objective Active Medications: Hydromorphone HCl (Dilaudid Inj*) 0.5 mg IV SLOW PU Q4H PRN PAIN - SEVERE Sodium Chloride (Ns 0.9% 1000 Ml) 1,000 mls @ 125 mls/hr IV PER RATE STAR Lorazepam (Ativan Inj*) 0.5 mg IV PUSH Q4H STAR Vital Signs - 8 hr 09/21/19 09/21/19 09/21/19 02:00 02:15 02:31 Temperature 100.9 F 100.9 F 100.8 F Pulse Rate 101 107 101 Respiratory 40 35 31 Rate Blood Pressure 143/83 149/81 146/85 (mmHg) O2 Sat by Pulse 96 98 98 Oximetry 09/21/19 09/21/19 09/21/19 02:41 02:46 03:00 Temperature 99.2 F 100.6 F 100.4 F Pulse Rate 112 97 103 Respiratory 25 36 38 Rate Blood Pressure 154/81 136/72 141/72 (mmHg) O2 Sat by Pulse 98 98 99 Oximetry 09/21/19 09/21/19 09/21/19 03:26 03:31 03:56 Temperature 100.2 F Pulse Rate 101 Respiratory 35 34 42 Rate Blood Pressure 149/79 (mmHg) O2 Sat by Pulse 100 Oximetry 09/21/19 09/21/19 09/21/19 04:00 04:31 05:00 Temperature 100.2 F 100.0 F Pulse Rate 103 102 Respiratory 38 32 33 Rate Blood Pressure 143/85 142/78 (mmHg) O2 Sat by Pulse 95 95 Oximetry 09/21/19 09/21/19 09/21/19 05:30 06:00 06:30 Temperature 99.9 F 99.9 F 99.7 F Pulse Rate 102 102 100 Respiratory 34 35 34 Rate Blood Pressure 125/73 140/83 147/71 (mmHg) O2 Sat by Pulse 95 95 94 Oximetry 09/21/19 09/21/19 09/21/19 06:34 07:00 07:30 Temperature 99.7 F 99.7 F 99.9 F Pulse Rate 99 100 97 Respiratory 33 34 29 Rate Blood Pressure 147/71 148/68 143/80 (mmHg) O2 Sat by Pulse 94 94 94 Oximetry 09/21/19 09/21/19 09/21/19 08:00 08:30 09:00 Temperature 99.9 F 100.0 F 100.0 F Pulse Rate 100 104 102 Respiratory 35 37 34 Rate Blood Pressure 138/82 153/82 147/77 (mmHg) O2 Sat by Pulse 94 96 96 Oximetry Oxygen Devices in Use Now: None Appearance: Middle-aged female lying in bed in NAD Ears/Nose/Mouth/Throat: Mucous Membranes Moist Neck: NL Appearance and Movements; NL JVP, Trachea Midline Respiratory: Symmetrical Chest Expansion and Respiratory Effort, Clear to Auscultation Cardiovascular: NL Sounds; No Murmurs; No JVD, RRR Abdominal: NL Sounds; No Tenderness; No Distention Extremities: - - Moderate nonpitting RUE Neurological: - - Oriented to self and place; Strength 4/5 BLE, 3/5 RUE, 2/5 LUE Lines/Tubes/Other Access: Clean, Dry and Intact Peripheral IV Nutrition: Taking PO's Result Diagrams: 09/21/19 05:15 09/21/19 05:58 Assess/Plan/Problems-Billing Assessment: Ms. Haddad is a 54 yo F with PMH of anxiety, depression, PTSD, asthma, agoraphobia; who presented to the ED with AMS after being found down in her home and was found to have rhabdomyolysis, minimally responsive, requiring ICU admission. - Patient Problems (1) Benzodiazepine overdose Code(s): T42.4X1A - POISONING BY BENZODIAZEPINES, ACCIDENTAL, INIT Comment: - Patient reportedly ran out of oxy before she could refill script (this sounds to be a monthly occurrence) so she took benzos in order to manage symptoms - Mental status slowly improving, but continued neuro deficits (left sided weakness) - Tox screen + for benzos and amphetamines (both fluoxetine and bupropion can cause false + amphetamine results) - Appreciate Neuro consult; recommends MRI brain, scheduled lorazepam taper - MRI unremarkable for acute changes - Neuro checks q4h - Start scheduled lorazepam to manage withdrawal symptoms (2) Rhabdomyolysis Code(s): M62.82 - RHABDOMYOLYSIS Comment: - Down on the floor at home for an unknown period of time - CK 42,000 on admission, now trending down - Continue agressive IV hydration (3) Left-sided weakness Code(s): R53.1 - WEAKNESS Comment: - Suspected secondary to benzo overdose and sedation - MRI brain unremarkable - RUE US unremarkable for DVT (4) ELSA (acute kidney injury) Code(s): N17.9 - ACUTE KIDNEY FAILURE, UNSPECIFIED Comment: - Secondary to rhabdo - Creatinine 2.54 on admission, now trending down - Continue IVF (5) SIRS (systemic inflammatory response syndrome) Code(s): R65.10 - SIRS OF NON-INFECTIOUS ORIGIN W/O ACUTE ORGAN DYSFUNCTION Comment: - Meeting criteria with tachycardia, leukocytosis, fever, tachypnea - Non-toxic appearing and no obvious source of infection, so suspect this is reactive secondary to rhabdo (6) Elevated troponin Code(s): R79.89 - OTHER SPECIFIED ABNORMAL FINDINGS OF BLOOD CHEMISTRY Comment : - Suspected secondary to rhabdo - Peaked on at 0.25, now trending down (7) Metabolic acidosis Code(s): E87.2 - ACIDOSIS Comment: - Present on admission, gap now closed (8) Psychiatric disorder Code(s): F99 - MENTAL DISORDER, NOT OTHERWISE SPECIFIED Comment: - Hold home medications until sedation resolves and she can swallow safely (9) DVT prophylaxis Code(s): Z29.9 - ENCOUNTER FOR PROPHYLACTIC MEASURES, UNSPECIFIED Comment: - Lovenox (10) Full code status Code(s): Z78.9 - OTHER SPECIFIED HEALTH STATUS Comment: Status and Disposition: Inpatient. Remains in ICU for close monitoring. Anticipate d/c home when medically stable. Attending: Brittney Hi
[2019-09-21] MEDS ORDERED: LORazepam INJ* 2 MG/ML 1 ML VIAL IV PUSH ONE (11:02)
[2019-09-21] MEDS ORDERED: Lorazepam PYXIS KEY ONE (11:10)
[2019-09-21 11:12] LABS: Urine Potassium Concentration 55.7 mmol/L
[2019-09-21] MEDS ORDERED: Acetaminophen TAB* 325 MG PO PRN (13:05)
[2019-09-21] MEDS: LORazepam INJ* 2 MG/ML 1 ML VIAL IV PUSH SCH ×4 (13:11→22:32)
--- NOTE | 2019-09-21 13:35 | CONS ---
CC: Dr. Dallas Red * CONSULTATION REPORT: DATE OF CONSULT: 09/21/19 LOCATION: Currently in ICU room 3. PRIMARY CARE PROVIDER: Dr. Dallas Red. REASON FOR CONSULTATION: Altered mental status and possible left-sided weakness. HISTORY OF PRESENT ILLNESS: Of note, the patient is a very poor historian, unable to give me much history. Her significant other is at the bedside. I also spoke with the nurse who is taking care of her and I reviewed her admission notes. The admitting physician was able to speak with the parents as well as the significant other. Per the admission note, the patient is a 54-year -old female, who has a history of anxiety, depression, PTSD, asthma, agarophobia , history of longstanding opiate abuse, and takes oxycodone as well as benzodiazepine. The significant other told me today that she has had multiple episodes of running out of her opiates, and going through "withdrawal symptoms" where she gets stomachache, nauseated, generalized weakness, tremors, and this typically happens when she runs out of her medications. She also apparently recently picked up a prescription for temazepam about 5 days ago, but called her significant other over the weekend and said that she had almost run out. The day before the patient was found the significant other was reporting that he was texting with her and that she seemed okay. The next day, he went over to her house and found her on the ground. He assumed that she had been down on the ground for hours. She was apparently lying on her right side when she was found. It is reported that she has no history of street drugs, but does get several prescriptions for pain medications and benzodiazepines. Her friend notes that she has had addiction for 10 years. It is unclear whether she has had any admission to drug rehab. She was brought to the ER and in the ER, a medical evaluation was done. At the time of her admission, she was noted to have a white count of 32, creatinine of 2.54, BUN of 47, glucose of 142. Her AST was 450, ALT of 137, alk phos of 114, ammonia 68, creatine kinase of 42, 455. Troponins were slightly elevated. She also had a urine drug screen that was presumptive positive for amphetamine and benzodiazepines. She had a brain CT done in the ER, showed no acute intracranial abnormality. She had a right frontal temporal subcutaneous hematoma in the right periorbital region. In addition at the time of her admission, she had a swollen right hand and wrist. X-ray at that time showed some soft tissue swelling. No acute osseous injury. She was admitted to the ICU for closely monitoring overnight. The patient has been intermittently agitated per the nurse, but at times she did talk with the nurse and was able to orient some. The nurse states that when her significant other came into the room, she seemed to stop talking. When I was at the bedside , the patient was unable to provide me any meaningful history. She would answer "yes and no" questions at times, but other times, was unable to answer. Her significant other was at the bedside and states that this is "what she does when she withdraws." Overnight, there had been no other reported changes. There has been some concern for left greater than right- sided weakness, although her significant other reports that she will get generalized weakness when she withdraws. The patient was unable to tell me whether she feels weaker on the left side versus the right side. PAST MEDICAL HISTORY: Per her history and physical, her past medical history as noted above. PAST SURGICAL HISTORY: Includes left oophorectomy, right ovarian cyst removal, bilateral breast implants, low back surgery, left knee arthroscopy twice and then right knee arthroscopy once, and surgery on her finger. MEDICATIONS: At home include; 1. Conjugated estrogen cream. 2. Omeprazole 20 mg at bedtime. 3. Albuterol inhaler. 4. Multivitamin. 5. EpiPen. 6. Calcium carbonate. 7. Alprazolam 1 mg p.o. 4 times a day, maximum daily dose 6 mg. 8. Oxycodone 15 to 30 mg p.o. q.4 hours p.r.n. 9. Benadryl. 10. Senna. 11. Fluoxetine 20 mg in the morning. 12. Bupropion XL 300 mg daily. 13. Fluticasone. 14. Tizanidine 2 to 4 mg at bedtime. 15. Temazepam 30 mg at bedtime. ALLERGIES: To multiple medications include FENTANYL, MORPHINE, LATEX. OPIATES causing a rash, HONEY BEE VENOM causing anaphylactic rash, and SULFIDE causing asthma as a child. FAMILY HISTORY: Mother with a previous history of alcohol use. Father healthy. SOCIAL HISTORY: She lives alone. Has a friend, Israel, who is at the bedside, who helps take care of her. He denies any smoking and notes no recent alcohol use. REVIEW OF SYSTEMS: Review of systems in 14-organ systems as noted above, the patient was unable to give me any significant information, but Israel was able to corroborate some of the information. He notes no history of seizures, no history of hospitalizations for withdrawals or drug rehab that he is aware of. No history of prior head trauma that he is aware of. He does not think she has had any nausea or vomiting recently or recent illnesses. She has not been complaining of any chest pain or shortness of breath that he is aware of. PHYSICAL EXAMINATION: Vital Signs: Temperature of 100 overnight. Her temperature remained low-grade in the 99 to 101 range, heart rate of 103, respiratory rate of 34, O2 saturation 96% on room air, blood pressure 147/77. In general, she is a well-nourished, well-developed female. She is lying in the hospital bed. Her significant other is at the bedside. She appears slightly disheveled. HEENT: She is normocephalic. Her neck this morning was supple. No carotid bruits. Chest was clear to auscultation bilaterally. Cardiovascular is tachycardic, regular rhythm. Abdomen is diffusely nontender. Extremities: She has 2+ swelling in the right hand with a maculopapular rash over the right hand, otherwise there is no significant edema appreciated. Her skin is warm and dry. On neurologic examination, she is awake. She seems alert. She is pretty much nonverbal, would not answer orientation questions but she does follow some commands intermittently, not always. Her cranial nerves, pupils are equally round and reactive to light and accommodation. There is no anisocoria. Extraocular muscles appear intact. Visual carey are grossly full to confrontation. There is no nystagmus appreciated. No diplopia noted per the patient. Face appears symmetric. Tongue is midline. Oropharynx raises symmetrically. Her motor exam, she does spontaneously move all extremities antigravity, but seemed to have less spontaneous movement of the left arm than the right arm. She is able to lift both arms, but they dropped to the bed immediately. She is also able to lift both legs, but they also dropped to the bed. There are some element of poor effort I believe involved, although she does appear to be diffusely weak perhaps more weak on the left arm. Her DTRs are down throughout trace at the biceps, brachioradialis, trace at the patella, absent at the ankles, upgoing Babinski's bilaterally. Sensation : She withdraws to pain in all extremities except less withdrawal to pain in the left lower extremity than the right side. Kacxof-aj-dsdu and rapid alternating movements were slow with a little past-pointing. There is no resting tremor. At one point, she did begin to shake in the left leg, but this resolved spontaneously. She was awake during the episode responsive. Gait could not be tested at this time. DIAGNOSTIC STUDIES/LAB DATA: Lab work as noted above today. Her white count is 22 down from 32 yesterday. Absolute neutrophils of 19.3 down from 29. Absolute monos 1.4 down from 1.7. Sodium this morning is 146, chloride of 120, carbon dioxide of 17, BUN of 33, creatinine of 1.32 down from 2.54 after hydration. Glucose of 117. Lactic acid of 2.0. Her AST is down 417, ALT down 140, alk phos is 84 and her ammonia is 68. Her creatine kinase is down 33,675. Imaging as noted above. ASSESSMENT AND PLAN: 1. Ms. Haddad is a 54-year-old female with a history of chronic opiate and benzodiazepine abuse. Per her significant other, she has had multiple episodes of withdrawal when she runs out of medicine. She apparently recently filled temazepam prescription, but had almost run out after 5 days. It is also unclear how much narcotics she has been taking for her chronic pain, but does have a long history of overuse. Had low-grade fevers, tachycardia, came in with elevated creatinine and appeared dry on examination. She was found down on the ground and had been down for some time. Her CK was elevated, but is improving. In short, all of her labs seemed to be improving with hydration. At this point, I suspect that she is suffering the acute effects of opiate withdrawal as well as possible benzodiazepine withdrawal. It appears that she had been taking quite a bit of it in the last few days. She has no prior history of alcohol abuse per her significant other, but certainly this is something to consider in someone who is overusing medications. I would watch her very closely in the ICU, continue to monitor her blood pressure. Treat her pulse and blood pressure as necessary to keep it normal. Labetalol would be a good choice. I would put her on a scheduled benzodiazepine in a slow taper. At this point, watch for any evidence of worsening withdrawal seizures. She has no prior seizure history. I expect over the next several days she will improve. My suspicion for KNITTING M[employer] HEAD infection is low. I suspect that her fevers and elevated white count are related to withdrawal and possibly dehydration. I do not see any obvious source of infection at this time. Certainly, if she does not improve or continues to worsen, we can consider an LP, but I think that the yield at this point would be low. Rhabdo is likely from pressure necrosis, being down on the ground. It is improving, we will continue to hydrate aggressively. I do not see any evidence of generalized myopathy. 2. Left-sided weakness. It is difficult to fully evaluate, but the plan is to get an MRI of her brain to look for any strokes. I suspect that these focal neurologic deficits may be related to the fact that she is withdrawing. She is unable to comply at times she seems stronger than others, but we will continue to watch it closely. I would not start her on antiplatelet at this point, should she show evidence of a stroke, we will do a complete workup. 3. Chronic opiate and benzodiazepine abuse. She is going to need counseling and possibly outpatient rehab once she has withdrawn and is stable, so we will need to get discharge planning involved. 4. Positive amphetamine. There is no apparent history of abuse and you can see positive amphetamines with multiple medications including SSRIs. As she clears, we can investigate this further. 5. History of depression and anxiety, on bupropion and fluoxetine as an outpatient. I do not see any evidence of serotonin syndrome at this point, but this is also something to watch for and she does not have any rigidity. She has no seizures at this point, but we will continue to monitor this. Currently , she is off these medications. I would minimize the use of tizanidine in these medications as well as it could increase the risk of serotonin syndrome. I will continue to follow her closely and make further recommendations as necessary. Thank you for the opportunity to participate in the care of this very interesting patient. [id number]/[facility] #: [id number] ODILON
[2019-09-21 13:45] LABS: Urine Benzodiazepine Screen None Detected (None Detect); Urine Buprenorphine Screen None Detected (None Detect); Urine Hydrocodone Screen None Detected (None Detect); Urine Opiates Screen None Detected (None Detect)
[2019-09-21] MEDS ORDERED: NS 0.9% 1000 ML** 1,000 ML IV SCH (15:51)
[2019-09-21 15:56] LABS: Albumin 3.1 g/dL (3.2-5.2)
[2019-09-21 16:02] LABS: ALT 144 U/L (7-52); Albumin/Globulin Ratio 1.2 (1-3); Alkaline Phosphatase 74 U/L (34-104); Globulin 2.6 g/dL (2-4); Total Protein 5.7 g/dL (6.4-8.9)
[2019-09-21 16:40] LABS: AST Redraw 380 U/L (13-39)
[2019-09-21] MEDS: Enoxaparin(*) 40 MG/0.4 ML SYR SUBCUT SCH (17:36)
[2019-09-21] MEDS: Acetaminophen TAB* 325 MG PO PRN (18:35)
[2019-09-21 19:51] LABS: Troponin I 0.22 ng/mL (<0.04)
[2019-09-21] MEDS: NS 0.9% 1000 ML** 1,000 ML IV SCH (20:24)
[2019-09-22 00:35] LABS: Influenza A Molecular NEGATIVE (Negative); Influenza B Molecular NEGATIVE (Negative)
[2019-09-22] MEDS: HYDROmorphone INJ* 0.5 MG/0.5 ML SYRINGE IV SLOW PU PRN ×3 (00:56→20:54)
[2019-09-22] MEDS: Nystatin SUSPENSION* 100000 UNITS/ML 5 ML UDC SWISH SPIT SCH ×5 (00:57→20:55)
[2019-09-22] MEDS: Acetaminophen TAB* 325 MG PO PRN (00:57)
[2019-09-22] MEDS ORDERED: NS 0.9% 1000 ML** 1,000 ML IV ONE (01:00)
[2019-09-22] MEDS: LORazepam INJ* 2 MG/ML 1 ML VIAL IV PUSH SCH ×6 (02:38→22:50)
[2019-09-22] MEDS: NS 0.9% 1000 ML** 1,000 ML IV SCH ×4 (04:12→20:48)
[2019-09-22 04:38] LABS: ABS Basophils 0.1 10^3/ul (0-0.2); ABS Lymphocytes 2.1 10^3/ul (1.0-4.8); ABS Monocytes 0.9 10^3/ul (0-0.8); ABS Neutrophils 13.2 10^3/ul (1.5-7.7); Eosinophil % 0.2 %; Hematocrit 36 % (35-47); Hemoglobin 12.1 g/dL (12.0-16.0); Lymphocyte % 13.1 %; Mean Corpuscular HGB Conc 34 g/dL (31-36); Mean Corpuscular Hemoglobin 30 pg (27-31); Mean Corpuscular Volume 90 fL (80-97); Mean Platelet Volume 10.5 fL (7.4-10.4); Platelet Count 187 10^3/uL (150-450); Red Blood Count 3.98 10^6 /uL (3.70-4.87); Red Cell Distribution Width 14 % (10-15); White Blood Count 16.3 10^3/uL (3.5-10.8)
[2019-09-22 04:53] LABS: Albumin/Globulin Ratio 1.4 (1-3); BUN/Creatinine Ratio 29.6 (8-20); Calcium 7.9 mg/dL (8.6-10.3); EGFR African American 103.4 (>60); EGFR Non-African American 85.5 (>60); Globulin 2.2 g/dL (2-4); Potassium 3.7 mmol/L (3.5-5.0); Total Bilirubin 0.6 mg/dL (0.2-1.0); Total Protein 5.2 g/dL (6.4-8.9)
--- NOTE | 2019-09-22 08:38 | ECHO ---
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 History: Asthma. Opiate abuse. Conclusions Summary: - Left ventricle: The cavity size is below normal. Wall thickness is mildly increased. Systolic function is vigorous. The estimated ejection fraction is 65-70%. Wall motion is normal; there are no regional wall motion abnormalities. Left ventricular diastolic function parameters are normal. - Right ventricle: Systolic function is normal. - Atrial septum: The atrial septum appears aneurysmal. - Mitral valve: There is trace regurgitation. - Tricuspid valve: There is mild regurgitation. - Pulmonary arteries: Systolic pressure is within the normal range. Pulmonary artery pressure may be underestimated The peak pressure during systole by Doppler is 24.0 mm Hg. - No prior echocardiogram to compare. Study data: Transthoracic echocardiogram. Procedure: Transthoracic echocardiography was performed. Image quality was fair. The study was technically limited due to poor patient compliance. Complete 2D, spectral Doppler, and color flow Doppler. Location: ICU Patient status: Inpatient. Patient room number: ICU-3. Rhythm: Normal sinus rhythm. Findings Left ventricle: The cavity size is below normal. Wall thickness is mildly increased. Systolic function is vigorous. The estimated ejection fraction is 65-70%. Wall motion is normal; there are no regional wall motion abnormalities. Left ventricular diastolic function parameters are normal. Right ventricle: The cavity size is mildly to moderately dilated. Systolic function is normal. Systolic pressure is within the normal range. Left atrium: The atrium is normal in size. Right atrium: The atrium is normal in size. Atrial septum: The atrial septum appears aneurysmal. Mitral valve: The leaflets are mildly thickened. There is no evidence of stenosis. There is trace regurgitation. Aortic valve: The valve is trileaflet. The leaflets are mildly thickened. There is no evidence of stenosis. There is no significant regurgitation. Tricuspid valve: The leaflets are normal thickness. There is no evidence of stenosis. There is mild regurgitation. Pulmonic valve: Poorly visualized. There is no evidence of stenosis. Aorta: Aortic root: The aortic root is appears normal. Ascending aorta: The ascending aorta is appears normal. Aortic arch: The aortic arch is appears normal. Pericardium: A prominent pericardial fat pad is present. There is no significant pericardial effusion. Pulmonary arteries: Poorly visualized. Systolic pressure is within the normal range. Pulmonary artery pressure may be underestimated Systemic veins: Inferior vena cava: The vessel is normal in size. There is (>= 50%) respiratory change in the IVC dimension. Measurements Left ventricle Value Ref Aortic valve Value Ref MOLLY, LAX (L) 3.4 cm 3.8 - 5.2 Andrew diam, ED 2.1 cm ----- ESD, LAX 2.6 cm 2.2 - 3.5 Peak v, S 1.36 m/sec ----- FS, LAX (L) 25 % 27 - 45 VTI, S 27.7 cm ----- PW, ED, LAX (H) 1.2 cm 0.6 - 0.9 Mean grad, S 4.0 mm Hg ----- FS (L) 25 % 27 - 45 Peak grad, S 7.0 mm Hg ----- PW, ED (H) 1.2 cm 0.6 - 0.9 LVOT/AV, VTI ratio 0.76 ----- E', lat andrew, TDI 17.7 cm/sec >=10.0 E/e', lat andrew, 5 Mitral valve Value Ref TDI Peak E 0.85 m/sec ----- E', med andrew, TDI 10.0 cm/sec >=7.0 Peak A 0.83 m/sec --- -- E/e', med andrew, 9 Decel time 254 ms ----- TDI Peak grad, D 2.9 mm Hg ----- E', avg, TDI 13.9 cm/sec Peak E/A ratio 1 ----- E/e', avg, TDI 6 <=14 Pulmonic valve Value Ref LVOT Value Ref Peak v, S 1 m/sec ----- Peak chichi, S 1.06 m/sec Peak grad, S 4.0 mm Hg ----- VTI, S 21.0 cm Mean grad, S 2 mm Hg Tricuspid valve Value Ref TR peak v 2.5 m/sec <=2.8 Ventricular septum Value Ref Peak RV-RA grad, S 25 mm Hg ----- IVS, ED (H) 1.1 cm 0.6 - 0.9 Aortic root Value Ref Right ventricle Value Ref Root diam 2.9 cm <4.0 MOLLY, LAX 3.1 cm MOLLY minor ax, A4C (H) 4.3 cm 1.9 - 3.5 Ascending aorta Value Ref mid AAo AP diam, S 3.0 cm ----- Pressure, S 28 mm Hg Aortic arch Value Ref Left atrium Value Ref Arch diam 1.9 cm ----- AP dim, ES 3.30 cm 2.70 - 3.80 Decending aorta Value Ref ML dim, A4C 4.1 cm Dae peak chichi 0.91 m/sec ----- SI dim, A4C 4.4 cm Vol/bsa, ES, 1-p 20 ml/m^2 11 - 40 Pulmonary artery Value Ref A4C Pressure, S 24.0 mm Hg ----- Vol/bsa, ES, A/L 33 ml/m^2 16 - 34 Inferior vena cava Value Ref Right atrium Value Ref Diam 2.0 cm ----- SI dim, ES 4.2 cm 3.4 - 5.3 ML dim, ES, A4C 3.6 cm 2.6 - 4.4 SI dim, ES, A4C 4.2 cm 3.4 - 5.3 Estimated RAP 3 mm Hg Legend: (L) and (H) charlotte values outside specified reference range. Prepared and electronically signed by Vicky Rangel MD 09/22/2019 08:38
[2019-09-22] MEDS ORDERED: Influenza VAC *QUAD* 2019-20* 0.5 ML SYRINGE IM ONE (09:00)
[2019-09-22] MEDS: FLUoxetine CAP* 20 MG PO SCH (09:48)
[2019-09-22] MEDS: BuPROPion XL* 150 MG TAB.XL PO SCH (09:49)
[2019-09-22] MEDS: oxyCODONE TAB* 5 MG TAB PO PRN ×3 (09:50→18:04)
--- NOTE | 2019-09-22 14:00 | PN ---
Subjective Date of Service: 09/22/19 Interval History: Ms. Haddad is not feeling well today. She is having a significant amount of back pain, unable to further describe the pain. When questioned about chest pain , she does admit to CP, but states that it radiates from her back and remains the same as yesterday. Admits to SOB. She does not know if she is coughing. Admits to nausea, but then goes on to say she is hungry. Nursing reports hallucinations and insomnia overnight. No acute concerns this morning. Family History: Unchanged from Admission Social History: Unchanged from Admission Past Medical History: Unchanged from Admission Objective Active Medications: Acetaminophen (Tylenol Tab*) 650 mg PO Q4H PRN MILD PAIN or TEMP > 100.4 Bupropion HCl (Wellbutrin Xl *) 300 mg PO DAILY [facility] Enoxaparin Sodium (Lovenox(*)) 40 mg SUBCUT Q24H STAR Fluoxetine HCl (Prozac Cap*) 20 mg PO QAM [facility] Hydromorphone HCl (Dilaudid Inj*) 0.5 mg IV SLOW PU Q4H PRN PAIN - SEVERE Sodium Chloride (Ns 0.9% 1000 Ml) 1,000 mls @ 200 mls/hr IV PER RATE [facility] Influenza Virus Vaccine (Fluarix Quad [id number] Syr) 0.5 ml IM .ONCE ONE Lorazepam (Ativan Inj*) 0.5 mg IV PUSH Q4H [facility] Metoprolol Tartrate (Lopressor Iv*) 5 mg IV Q6H PRN Heart Rate Greater Than: 120 Nystatin (Nystatin Suspension*) 500,000 units SWISH SPIT QID [facility] Nystatin (Nystatin Top Powder*) 1 applic TOPICAL TID [facility] Oxycodone HCl (Roxycodone Tab*) 5 mg PO Q4H PRN PAIN - MODERATE Temazepam (Restoril Cap*) 30 mg PO BEDTIME [facility] Vital Signs - 8 hr 09/22/19 09/22/19 09/22/19 06:00 06:30 06:34 Temperature 99.9 F 99.9 F Pulse Rate 93 91 Respiratory 30 31 30 Rate Blood Pressure 146/84 146/90 (mmHg) O2 Sat by Pulse 94 94 Oximetry 09/22/19 09/22/19 09/22/19 07:00 07:30 08:00 Temperature 99.9 F 99.9 F 99.9 F Pulse Rate 90 91 91 Respiratory 28 38 20 Rate Blood Pressure 158/90 148/97 157/91 (mmHg) O2 Sat by Pulse 95 94 92 Oximetry 09/22/19 09/22/19 09/22/19 08:31 09:00 09:31 Temperature 99.9 F 99.9 F 99.7 F Pulse Rate 92 103 98 Respiratory 34 29 35 Rate Blood Pressure 161/83 161/118 145/76 (mmHg) O2 Sat by Pulse 95 94 95 Oximetry 09/22/19 09/22/19 09/22/19 09:54 10:00 10:01 Temperature 99.7 F 99.7 F 99.7 F Pulse Rate 106 114 106 Respiratory 23 31 22 Rate Blood Pressure 145/76 160/83 (mmHg) O2 Sat by Pulse 96 90 95 Oximetry 09/22/19 09/22/19 10:40 12:33 Temperature 99.3 F Pulse Rate 99 Respiratory 24 28 Rate Blood Pressure 156/81 (mmHg) O2 Sat by Pulse 96 Oximetry Oxygen Devices in Use Now: None Appearance: Middle-aged female lying in bed in NAD Eyes: No Scleral Icterus Ears/Nose/Mouth/Throat: Mucous Membranes Moist Neck: NL Appearance and Movements; NL JVP, Trachea Midline Respiratory: Symmetrical Chest Expansion and Respiratory Effort, Clear to Auscultation Cardiovascular: NL Sounds; No Murmurs; No JVD, RRR Abdominal: NL Sounds; No Tenderness; No Distention Extremities: - - Moderate right hand nonpitting edema Neurological: - - Alert, oriented to self and place, tangential speech Lines/Tubes/Other Access: Clean, Dry and Intact Peripheral IV Nutrition: Taking PO's Result Diagrams: 09/22/19 04:23 09/22/19 04:23 Assess/Plan/Problems-Billing Assessment: Ms. Haddad is a 54 yo F with PMH of anxiety, depression, PTSD, asthma, agoraphobia; who presented to the ED with AMS after being found down in her home and was found to have rhabdomyolysis, minimally responsive, requiring ICU admission. - Patient Problems (1) Benzodiazepine overdose Code(s): T42.4X1A - POISONING BY BENZODIAZEPINES, ACCIDENTAL, INIT Comment: - Patient reports running out of oxy before she could refill script (this sounds to be a monthly occurrence) so she took benzos in order to manage symptoms - Mental status slowly improving, but continued generalized weakness and AMS - Tox screen + for benzos and amphetamines (both fluoxetine and bupropion can cause false + amphetamine results) - Appreciate Neuro consult; recommends scheduled lorazepam taper - MRI unremarkable for acute changes - Neuro checks q4h - Continue lorazepam (2) Rhabdomyolysis Code(s): M62.82 - RHABDOMYOLYSIS Comment: - Down on the floor at home for an unknown period of time - CK 42,000 on admission, not trending down significantly - Continue agressive IV hydration, increase rate to 200mL/hr (3) Left-sided weakness Code(s): R53.1 - WEAKNESS Comment: - Suspected secondary to benzo overdose and sedation - MRI brain unremarkable - RUE US unremarkable for DVT (4) ELSA (acute kidney injury) Code(s): N17.9 - ACUTE KIDNEY FAILURE, UNSPECIFIED Comment: - Resolved - Secondary to rhabdo - Creatinine 2.54 on admission, now normal (5) SIRS (systemic inflammatory response syndrome) Code(s): R65.10 - SIRS OF NON-INFECTIOUS ORIGIN W/O ACUTE ORGAN DYSFUNCTION Comment: - Meeting criteria with tachycardia, leukocytosis, tachypnea - Low grade fevers resolved and WBC improving - Non-toxic appearing and no obvious source of infection, so suspect this is reactive secondary to rhabdo - CXR unremarkable (6) Elevated troponin Code(s): R79.89 - OTHER SPECIFIED ABNORMAL FINDINGS OF BLOOD CHEMISTRY Comment : - Suspected secondary to rhabdo - Peaked on at 0.25 - Echo shows EF 65-70%, no significant valvular abnormalities (7) Metabolic acidosis Code(s): E87.2 - ACIDOSIS Comment: - Present on admission, gap now closed (8) Psychiatric disorder Code(s): F99 - MENTAL DISORDER, NOT OTHERWISE SPECIFIED Comment: - Resume bupropion, fluoxetine - Will consider Psych consult once mental status improves (9) DVT prophylaxis Code(s): Z29.9 - ENCOUNTER FOR PROPHYLACTIC MEASURES, UNSPECIFIED Comment: - Lovenox (10) Full code status Code(s): Z78.9 - OTHER SPECIFIED HEALTH STATUS Comment: Status and Disposition: Inpatient. Transfer out of ICU today. Anticipate d/c home when medically stable. Attending: Nelly Blanco
[2019-09-22] MEDS: Nystatin TOP POWDER* 15 GM BTL TOPICAL SCH ×2 (14:11→23:20)
[2019-09-22] MEDS: Enoxaparin(*) 40 MG/0.4 ML SYR SUBCUT SCH (17:53)
[2019-09-22] MEDS: Temazepam CAP* 15 MG PO SCH (20:53)
[2019-09-22] MEDS: Melatonin 3 MG TAB PO SCH (20:53)
[2019-09-22 23:52] LABS: ALT 374 U/L (7-52); AST 856 U/L (13-39); Albumin 3.2 g/dL (3.2-5.2); Albumin/Globulin Ratio 1.5 (1-3); Alkaline Phosphatase 85 U/L (34-104); Globulin 2.2 g/dL (2-4); Total Protein 5.4 g/dL (6.4-8.9)
[2019-09-23] MEDS: NS 0.9% 1000 ML** 1,000 ML IV SCH ×4 (01:59→19:57)
[2019-09-23] MEDS: LORazepam INJ* 2 MG/ML 1 ML VIAL IV PUSH SCH ×3 (03:02→10:43)
[2019-09-23] MEDS: HYDROmorphone INJ* 0.5 MG/0.5 ML SYRINGE IV SLOW PU PRN ×2 (03:03→06:06)
[2019-09-23 05:36] LABS: ABS Lymphocytes 1.7 10^3/ul (1.0-4.8); ABS Monocytes 0.6 10^3/ul (0-0.8); Eosinophil % 0.4 %; Hematocrit 33 % (35-47); Hemoglobin 11.4 g/dL (12.0-16.0); Lymphocyte % 15.1 %; Mean Corpuscular HGB Conc 34 g/dL (31-36); Mean Corpuscular Hemoglobin 31 pg (27-31); Mean Corpuscular Volume 90 fL (80-97); Mean Platelet Volume 10.4 fL (7.4-10.4); Platelet Count 180 10^3/uL (150-450); Red Blood Count 3.71 10^6 /uL (3.70-4.87); Red Cell Distribution Width 14 % (10-15); White Blood Count 11.4 10^3/uL (3.5-10.8)
[2019-09-23 05:54] LABS: Albumin 2.9 g/dL (3.2-5.2); Albumin/Globulin Ratio 1.5 (1-3); BUN/Creatinine Ratio 18.9 (8-20); EGFR African American 144.9 (>60); EGFR Non-African American 119.8 (>60); Potassium 3.2 mmol/L (3.5-5.0); Total Bilirubin 0.4 mg/dL (0.2-1.0); Total Protein 4.9 g/dL (6.4-8.9)
[2019-09-23] MEDS ORDERED: Potassium Chlor TAB* 20 MEQ TAB.ER PO ONE (07:11)
[2019-09-23] MEDS ORDERED: KCL 20 MEQ/100 ML IVPREMIX* 20 MEQ/100 ML BAG IV ONE (07:11)
[2019-09-23] MEDS: BuPROPion XL* 150 MG TAB.XL PO SCH (07:55)
[2019-09-23] MEDS: FLUoxetine CAP* 20 MG PO SCH (07:56)
[2019-09-23] MEDS: oxyCODONE TAB* 5 MG TAB PO PRN ×3 (07:56→19:57)
[2019-09-23] MEDS: Nystatin SUSPENSION* 100000 UNITS/ML 5 ML UDC SWISH SPIT SCH ×4 (07:57→22:01)
[2019-09-23 08:44] LABS: Urine Appearance Cloudy; Urine Bacteria Absent (Absent); Urine Bilirubin Negative (Negative); Urine Blood 3+ (Negative); Urine Color Yellow; Urine Glucose Negative (Negative); Urine Ketones Negative (Negative); Urine Nitrite Positive (Negative); Urine Protein Negative (Negative); Urine Red Blood Cell 1+(3-5/hpf) (Absent); Urine Specific Gravity 1.008 (1.010-1.030); Urine Squamous Epithelial Cell Present (Absent); Urine Urobilinogen Negative (Negative); Urine White Blood Cell 3+(>20/hpf) (Absent)
[2019-09-23] MEDS ORDERED: Influenza VAC *QUAD* 2019-20* 0.5 ML SYRINGE IM ONE (09:00)
[2019-09-23] MEDS: Nystatin TOP POWDER* 15 GM BTL TOPICAL SCH ×3 (09:26→22:00)
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
[2019-09-23] MEDS: LORazepam TAB(*) 1 MG PO SCH ×3 (14:29→22:01)
[2019-09-23] MEDS: Acetaminophen TAB* 325 MG PO PRN (15:25)
[2019-09-23] MEDS: Enoxaparin(*) 40 MG/0.4 ML SYR SUBCUT SCH (17:48)
[2019-09-23] MEDS: Melatonin 3 MG TAB PO SCH (22:01)
[2019-09-23] MEDS: Temazepam CAP* 15 MG PO SCH (22:01)
[2019-09-24] MEDS: oxyCODONE TAB* 5 MG TAB PO PRN ×5 (00:04→19:58)
[2019-09-24] MEDS: NS 0.9% 1000 ML** 1,000 ML IV SCH ×5 (01:12→22:18)
[2019-09-24] MEDS: LORazepam TAB(*) 1 MG PO SCH ×5 (02:05→19:58)
[2019-09-24 06:05] LABS: ABS Eosinophils 0.1 10^3/ul (0-0.6); ABS Lymphocytes 1.7 10^3/ul (1.0-4.8); ABS Monocytes 0.6 10^3/ul (0-0.8); ABS Neutrophils 7.5 10^3/ul (1.5-7.7); Eosinophil % 1.2 %; Hematocrit 34 % (35-47); Hemoglobin 11.8 g/dL (12.0-16.0); Lymphocyte % 16.8 %; Mean Corpuscular HGB Conc 34 g/dL (31-36); Mean Corpuscular Hemoglobin 31 pg (27-31); Mean Corpuscular Volume 90 fL (80-97); Mean Platelet Volume 10.5 fL (7.4-10.4); Platelet Count 202 10^3/uL (150-450); Red Blood Count 3.81 10^6 /uL (3.70-4.87); Red Cell Distribution Width 13 % (10-15); White Blood Count 9.8 10^3/uL (3.5-10.8)
[2019-09-24 06:24] LABS: Albumin/Globulin Ratio 1.4 (1-3); BUN/Creatinine Ratio 9.6 (8-20); Calcium 8.2 mg/dL (8.6-10.3); EGFR African American 148.1 (>60); EGFR Non-African American 122.4 (>60); Globulin 2.2 g/dL (2-4); Potassium 2.9 mmol/L (3.5-5.0); Total Bilirubin 0.4 mg/dL (0.2-1.0); Total Protein 5.2 g/dL (6.4-8.9)
[2019-09-24] MEDS: Nystatin SUSPENSION* 100000 UNITS/ML 5 ML UDC SWISH SPIT SCH ×4 (08:11→19:58)
[2019-09-24] MEDS: Acetaminophen TAB* 325 MG PO PRN (08:11)
[2019-09-24] MEDS: FLUoxetine CAP* 20 MG PO SCH (08:12)
[2019-09-24] MEDS: BuPROPion XL* 150 MG TAB.XL PO SCH (08:12)
[2019-09-24] MEDS: Potassium Chlor TAB* 20 MEQ TAB.ER PO SCH ×2 (09:50→13:58)
[2019-09-24] MEDS: KCL 20 MEQ/100 ML IVPREMIX* 20 MEQ/100 ML BAG IV SCH ×2 (09:51→12:02)
[2019-09-24] MEDS: Nystatin TOP POWDER* 15 GM BTL TOPICAL SCH ×3 (11:16→20:03)
[2019-09-24] MEDS ORDERED: oxyCODONE TAB* 5 MG TAB PO PRN (14:40)
--- NOTE | 2019-09-24 14:42 | PN ---
Subjective Date of Service: 09/24/19 Interval History: Ms. Haddad is not feeling well today. She is having significant back pain, to the point of tears. She otherwise has no complaints. Had an uneventful night. Denies CP, SOB, N/V. Good appetite. Her significant other thinks her mental status has returned to baseline. No concerns from nursing. Family History: Unchanged from Admission Social History: Unchanged from Admission Past Medical History: Unchanged from Admission Objective Active Medications: Acetaminophen (Tylenol Tab*) 650 mg PO Q4H PRN MILD PAIN or TEMP > 100.4 Bupropion HCl (Wellbutrin Xl *) 300 mg PO DAILY STAR Enoxaparin Sodium (Lovenox(*)) 40 mg SUBCUT Q24H STAR Fluoxetine HCl (Prozac Cap*) 20 mg PO QAM STAR Sodium Chloride (Ns 0.9% 1000 Ml) 1,000 mls @ 200 mls/hr IV PER RATE STAR Lorazepam (Ativan Tab(*)) 0.5 mg PO Q4H STAR Melatonin (Melatonin) 3 mg PO BEDTIME STAR Metoprolol Tartrate (Lopressor Iv*) 5 mg IV Q6H PRN Heart Rate Greater Than: 120 Nystatin (Nystatin Suspension*) 500,000 units SWISH SPIT QID STAR Nystatin (Nystatin Top Powder*) 1 applic TOPICAL TID STAR Oxycodone HCl (Roxycodone Tab*) 5 mg PO Q4H PRN PAIN - MODERATE Temazepam (Restoril Cap*) 30 mg PO BEDTIME STAR Vital Signs - 8 hr 09/24/19 09/24/19 09/24/19 07:00 08:00 08:08 Temperature 99.6 F Pulse Rate 82 Respiratory 22 18 20 Rate Blood Pressure 161/79 (mmHg) 09/24/19 09/24/19 09/24/19 08:11 09:50 10:00 Temperature Pulse Rate Respiratory 22 16 18 Rate Blood Pressure (mmHg) 09/24/19 09/24/19 09/24/19 12:00 13:58 13:59 Temperature Pulse Rate Respiratory 20 18 18 Rate Blood Pressure (mmHg) Oxygen Devices in Use Now: None Appearance: Middle-aged female lying in bed in NAD, emotional Ears/Nose/Mouth/Throat: Mucous Membranes Moist Neck: NL Appearance and Movements; NL JVP, Trachea Midline Respiratory: Symmetrical Chest Expansion and Respiratory Effort, Clear to Auscultation Cardiovascular: NL Sounds; No Murmurs; No JVD, RRR Abdominal: - - Soft, tender throughout Extremities: No Edema Neurological: Alert and Oriented x 3 Lines/Tubes/Other Access: Clean, Dry and Intact Peripheral IV Nutrition: Taking PO's Result Diagrams: 09/24/19 05:35 09/24/19 05:35 Assess/Plan/Problems-Billing Assessment: Ms. Haddad is a 54 yo F with PMH of anxiety, depression, PTSD, asthma, agoraphobia; who presented to the ED with AMS after being found down in her home and was found to have rhabdomyolysis, minimally responsive, requiring ICU admission. - Patient Problems (1) Benzodiazepine overdose Code(s): T42.4X1A - POISONING BY BENZODIAZEPINES, ACCIDENTAL, INIT Comment: - Patient reports running out of oxy before she could refill script (this sounds to be a monthly occurrence) so she took benzos in order to manage symptoms - Mental status slowly improving, but continued generalized weakness and AMS - Tox screen + for benzos and amphetamines (both fluoxetine and bupropion can cause false + amphetamine results) - Appreciate Neuro consult; recommends scheduled lorazepam taper - MRI unremarkable for acute changes - Neuro checks q4h - Continue lorazepam but decrease to q6h; increase oxy to 10mg q4h (2) Rhabdomyolysis Code(s): M62.82 - RHABDOMYOLYSIS Comment: - Down on the floor at home for an unknown period of time - CK 42,000 on admission, trending down - Continue agressive IV hydration at 200mL/hr (3) Left-sided weakness Code(s): R53.1 - WEAKNESS Comment: - Resolved - Suspected secondary to benzo overdose and sedation - MRI brain unremarkable - RUE US unremarkable for DVT (4) ELSA (acute kidney injury) Code(s): N17.9 - ACUTE KIDNEY FAILURE, UNSPECIFIED Comment: - Resolved - Secondary to rhabdo - Creatinine 2.54 on admission, now normal (5) SIRS (systemic inflammatory response syndrome) Code(s): R65.10 - SIRS OF NON-INFECTIOUS ORIGIN W/O ACUTE ORGAN DYSFUNCTION Comment: - Resolved - Met criteria with tachycardia, leukocytosis, tachypnea, fever - Non-toxic appearing and no obvious source of infection, so suspect this is reactive secondary to rhabdo - CXR unremarkable (6) Elevated troponin Code(s): R79.89 - OTHER SPECIFIED ABNORMAL FINDINGS OF BLOOD CHEMISTRY Comment : - Suspected secondary to rhabdo - Peaked at 0.25 - Echo shows EF 65-70%, no significant valvular abnormalities (7) Metabolic acidosis Code(s): E87.2 - ACIDOSIS Comment: - Present on admission, gap now closed (8) Psychiatric disorder Code(s): F99 - MENTAL DISORDER, NOT OTHERWISE SPECIFIED Comment: - Resume bupropion, fluoxetine - Appreciate Psych consult (9) DVT prophylaxis Code(s): Z29.9 - ENCOUNTER FOR PROPHYLACTIC MEASURES, UNSPECIFIED Comment: - Lovenox (10) Full code status Code(s): Z78.9 - OTHER SPECIFIED HEALTH STATUS Comment: Status and Disposition: Inpatient. Anticipate d/c home when CK <5,000. Will also need to be cleared by Psych. Attending: Vanessa Varela
[2019-09-24] MEDS: Enoxaparin(*) 40 MG/0.4 ML SYR SUBCUT SCH (17:07)
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
[2019-09-24] MEDS ORDERED: KCL 20 MEQ/100 ML IVPREMIX* 20 MEQ/100 ML BAG IV SCH (19:00)
[2019-09-24] MEDS: cloNIDine TAB* 0.1 MG PO SCH (19:58)
[2019-09-24] MEDS: Melatonin 3 MG TAB PO SCH (19:59)
[2019-09-25] MEDS: oxyCODONE TAB* 5 MG TAB PO PRN ×2 (02:01→08:50)
[2019-09-25] MEDS: LORazepam TAB(*) 1 MG PO SCH (02:02)
[2019-09-25] MEDS: NS 0.9% 1000 ML** 1,000 ML IV SCH (03:39)
[2019-09-25 05:44] LABS: BUN/Creatinine Ratio 9.6 (8-20); Calcium 8.7 mg/dL (8.6-10.3); EGFR African American 148.1 (>60); EGFR Non-African American 122.4 (>60); Potassium 3.2 mmol/L (3.5-5.0)
[2019-09-25] MEDS ORDERED: KCL 20 MEQ/100 ML IVPREMIX* 20 MEQ/100 ML BAG IV ONE (07:11)
[2019-09-25] MEDS ORDERED: Potassium Chlor TAB* 20 MEQ TAB.ER PO ONE (07:11)
[2019-09-25] MEDS: FLUoxetine CAP* 20 MG PO SCH (07:25)
[2019-09-25] MEDS: BuPROPion XL* 150 MG TAB.XL PO SCH (07:25)
[2019-09-25] MEDS: Acetaminophen TAB* 325 MG PO PRN (07:26)
[2019-09-25] MEDS ORDERED: LORazepam TAB(*) 0.5 MG PO SCH (08:00)
[2019-09-25] MEDS: Nystatin TOP POWDER* 15 GM BTL TOPICAL SCH ×3 (08:50→19:36)
[2019-09-25] MEDS: Nystatin SUSPENSION* 100000 UNITS/ML 5 ML UDC SWISH SPIT SCH ×4 (09:08→19:34)
[2019-09-25] MEDS: cefTRIAXone(*) 1 GM in NS 0.9% 50 ML* 50 ML IVPB SCH (12:23)
[2019-09-25] MEDS ORDERED: Ondansetron INJ* 2 MG/ML VIAL IV PRN (13:11)
[2019-09-25] MEDS: LORazepam TAB(*) 0.5 MG PO SCH (13:15)
[2019-09-25] MEDS: hydrOXYzine HCL TAB* 25 MG PO PRN ×2 (14:02→19:34)
[2019-09-25] MEDS: Baclofen TAB* 10 MG PO SCH ×2 (14:02→19:34)
[2019-09-25] MEDS: Enoxaparin(*) 40 MG/0.4 ML SYR SUBCUT SCH (15:28)
--- NOTE | 2019-09-25 15:42 | PN ---
Subjective Date of Service: 09/25/19 Interval History: Ms. Haddad is not feeling any better today. She c/o back pain, but no other complaints. Denies CP, SOB. She is agreeable to weaning off oxy and benzos and would like to be clean. She is aware that she will not be prescribed any of these medications at d/c. Nursing reports irritability and patient complaints about withdrawal symptoms. Family History: Unchanged from Admission Social History: Unchanged from Admission Past Medical History: Unchanged from Admission Objective Active Medications: Acetaminophen (Tylenol Tab*) 650 mg PO Q4H PRN MILD PAIN or TEMP > 100.4 Baclofen (Lioresal Tab*) 10 mg PO TID STAR Bupropion HCl (Wellbutrin Xl *) 300 mg PO DAILY STAR Clonidine HCl (Catapres Tab*) 0.1 mg PO BEDTIME STAR Enoxaparin Sodium (Lovenox(*)) 40 mg SUBCUT Q24H STAR Fluoxetine HCl (Prozac Cap*) 20 mg PO QAM STAR Hydroxyzine HCl (Atarax Tab*) 25 mg PO Q4H PRN ANXIETY Ceftriaxone Sodium 1 gm/ (Sodium Chloride) 50 mls @ 100 mls/hr IVPB Q24H STAR Lorazepam (Ativan Tab(*)) 0.5 mg PO Q8H STAR Melatonin (Melatonin) 3 mg PO BEDTIME STAR Nystatin (Nystatin Suspension*) 500,000 units SWISH SPIT QID STAR Nystatin (Nystatin Top Powder*) 1 applic TOPICAL TID STAR Ondansetron HCl (Zofran Inj*) 4 mg IV Q6H PRN NAUSEA Oxycodone HCl (Roxycodone Tab*) 5 mg PO Q12H PRN PAIN - MODERATE Vital Signs - 8 hr 09/25/19 09/25/19 09/25/19 11:00 13:15 14:34 Temperature 98.3 F Pulse Rate 86 Respiratory 16 22 18 Rate Blood Pressure 139/75 (mmHg) O2 Sat by Pulse 96 Oximetry 09/25/19 15:18 Temperature 98.8 F Pulse Rate 87 Respiratory 16 Rate Blood Pressure 149/79 (mmHg) O2 Sat by Pulse 96 Oximetry Oxygen Devices in Use Now: None Appearance: Middle-aged female lying in bed in NAD Ears/Nose/Mouth/Throat: Mucous Membranes Moist Neck: NL Appearance and Movements; NL JVP, Trachea Midline Respiratory: Symmetrical Chest Expansion and Respiratory Effort, Clear to Auscultation Cardiovascular: NL Sounds; No Murmurs; No JVD, RRR Abdominal: NL Sounds; No Tenderness; No Distention Neurological: Alert and Oriented x 3 Lines/Tubes/Other Access: Clean, Dry and Intact Peripheral IV Nutrition: Taking PO's Result Diagrams: 09/24/19 05:35 09/25/19 05:19 Assess/Plan/Problems-Billing Assessment: Ms. Haddad is a 54 yo F with PMH of anxiety, depression, PTSD, asthma, agoraphobia; who presented to the ED with AMS after being found down in her home and was found to have rhabdomyolysis, minimally responsive, requiring ICU admission. - Patient Problems (1) Benzodiazepine overdose Code(s): T42.4X1A - POISONING BY BENZODIAZEPINES, ACCIDENTAL, INIT Comment: - Patient reports running out of oxy before she could refill script (this sounds to be a monthly occurrence) so she took benzos in order to manage symptoms - Mental status slowly improving, but continued generalized weakness and AMS - Tox screen + for benzos and amphetamines (both fluoxetine and bupropion can cause false + amphetamine results) - Appreciate Neuro consult; recommends scheduled lorazepam taper - MRI unremarkable for acute changes - Neuro checks q4h - Continue lorazepam and oxy taper (2) Catheter-associated urinary tract infection Code(s): T83.511A - I/I REACT D/T INDWELLING URETHRAL CATHETER, INIT; N39.0 - URINARY TRACT INFECTION, SITE NOT SPECIFIED Comment: - Hospital acquired - Urine culture growing >100k colonies Proteus, sensitivities pending - Start ceftriaxone (3) Rhabdomyolysis Code(s): M62.82 - RHABDOMYOLYSIS Comment: - Down on the floor at home for an unknown period of time - CK 42,000 on admission, trending down - Stop IVF (4) Left-sided weakness Code(s): R53.1 - WEAKNESS Comment: - Resolved - Suspected secondary to benzo overdose and sedation - MRI brain unremarkable - RUE US unremarkable for DVT (5) ELSA (acute kidney injury) Code(s): N17.9 - ACUTE KIDNEY FAILURE, UNSPECIFIED Comment: - Resolved - Secondary to rhabdo - Creatinine 2.54 on admission, now normal (6) SIRS (systemic inflammatory response syndrome) Code(s): R65.10 - SIRS OF NON-INFECTIOUS ORIGIN W/O ACUTE ORGAN DYSFUNCTION Comment: - Resolved - Met criteria with tachycardia, leukocytosis, tachypnea, fever - Non-toxic appearing and no obvious source of infection, so suspect this is reactive secondary to rhabdo - CXR unremarkable (7) Elevated troponin Code(s): R79.89 - OTHER SPECIFIED ABNORMAL FINDINGS OF BLOOD CHEMISTRY Comment : - Suspected secondary to rhabdo - Peaked at 0.25 - Echo shows EF 65-70%, no significant valvular abnormalities (8) Metabolic acidosis Code(s): E87.2 - ACIDOSIS Comment: - Present on admission, gap now closed (9) Psychiatric disorder Code(s): F99 - MENTAL DISORDER, NOT OTHERWISE SPECIFIED Comment: - Resume bupropion, fluoxetine - Appreciate Psych consult; recommends tapering off benzos and narcs completely (10) DVT prophylaxis Code(s): Z29.9 - ENCOUNTER FOR PROPHYLACTIC MEASURES, UNSPECIFIED Comment: - Lovenox (11) Full code status Code(s): Z78.9 - OTHER SPECIFIED HEALTH STATUS Comment: Status and Disposition: Inpatient. Anticipate d/c home when CK <5,000 and tapered off benzos and narcotics. Attending: Roly Byrne
[2019-09-25] MEDS ORDERED: NS 0.9% 1000 ML** 1,000 ML IV SCH (17:45)
[2019-09-25] MEDS: cloNIDine TAB* 0.1 MG PO SCH (19:34)
[2019-09-25] MEDS: Melatonin 3 MG TAB PO SCH (19:34)
[2019-09-26] MEDS: Senna TAB 8.6 mg* TAB PO PRN (00:42)
[2019-09-26] MEDS: oxyCODONE TAB* 5 MG TAB PO PRN (00:42)
[2019-09-26] MEDS: LORazepam TAB(*) 0.5 MG PO SCH ×4 (00:42→20:57)
[2019-09-26 04:43] LABS: ABS Eosinophils 0.1 10^3/ul (0-0.6); ABS Lymphocytes 1.7 10^3/ul (1.0-4.8); ABS Monocytes 0.9 10^3/ul (0-0.8); ABS Neutrophils 11.1 10^3/ul (1.5-7.7); Hematocrit 38 % (35-47); Hemoglobin 12.6 g/dL (12.0-16.0); Lymphocyte % 12.1 %; Mean Corpuscular HGB Conc 33 g/dL (31-36); Mean Corpuscular Hemoglobin 30 pg (27-31); Mean Corpuscular Volume 90 fL (80-97); Mean Platelet Volume 9.5 fL (7.4-10.4); Nucleated Red Blood Cells % 0.1; Platelet Count 265 10^3/uL (150-450); Red Cell Distribution Width 13 % (10-15); White Blood Count 13.9 10^3/uL (3.5-10.8)
[2019-09-26 04:58] LABS: Albumin 3.3 g/dL (3.2-5.2); Albumin/Globulin Ratio 1.2 (1-3); BUN/Creatinine Ratio 15.6 (8-20); Calcium 8.9 mg/dL (8.6-10.3); EGFR African American 116.6 (>60); EGFR Non-African American 96.3 (>60); Globulin 2.8 g/dL (2-4); Potassium 3.1 mmol/L (3.5-5.0); Total Bilirubin 0.4 mg/dL (0.2-1.0); Total Protein 6.1 g/dL (6.4-8.9)
[2019-09-26] MEDS: KCL 20 MEQ/100 ML IVPREMIX* 20 MEQ/100 ML BAG IV SCH ×2 (07:16→09:15)
[2019-09-26] MEDS: Potassium Chlor TAB* 20 MEQ TAB.ER PO SCH ×2 (07:16→11:04)
[2019-09-26] MEDS: FLUoxetine CAP* 20 MG PO SCH (07:17)
[2019-09-26] MEDS: BuPROPion XL* 150 MG TAB.XL PO SCH (07:17)
[2019-09-26] MEDS: Acetaminophen TAB* 325 MG PO PRN (07:17)
[2019-09-26] MEDS: Baclofen TAB* 10 MG PO SCH ×3 (07:17→20:57)
[2019-09-26] MEDS: Nystatin SUSPENSION* 100000 UNITS/ML 5 ML UDC SWISH SPIT SCH ×4 (07:17→20:57)
[2019-09-26] MEDS: Nystatin TOP POWDER* 15 GM BTL TOPICAL SCH ×3 (07:17→21:01)
[2019-09-26] MEDS: cefTRIAXone(*) 1 GM in NS 0.9% 50 ML* 50 ML IVPB SCH (11:23)
[2019-09-26 13:42] LABS: Hepatitis B Surface Antigen Nonreactive (Nonreactive)
[2019-09-26 13:59] LABS: Hepatitis C Antibody Negative (Negative)
[2019-09-26] MEDS: hydrOXYzine HCL TAB* 25 MG PO PRN ×2 (14:06→16:54)
--- NOTE | 2019-09-26 14:08 | PN ---
Subjective Date of Service: 09/26/19 Interval History: Ms. Haddad is feeling poor. She will not offer verbal information unless specifically questioned. ROS is neff-positive. Admits to pain, insomnia, nausea, tremors, diaphoresis. None of her symptoms are improving. Boyfriend is at bedside. She has been incontinent of urine. No concerns from nursing. Family History: Unchanged from Admission Social History: Unchanged from Admission Past Medical History: Unchanged from Admission Objective Active Medications: Acetaminophen (Tylenol Tab*) 650 mg PO Q4H PRN MILD PAIN or TEMP > 100.4 Baclofen (Lioresal Tab*) 10 mg PO TID STAR Bupropion HCl (Wellbutrin Xl *) 300 mg PO DAILY STAR Clonidine HCl (Catapres Tab*) 0.1 mg PO BEDTIME STAR Enoxaparin Sodium (Lovenox(*)) 40 mg SUBCUT Q24H STAR Fluoxetine HCl (Prozac Cap*) 20 mg PO QAM STAR Hydroxyzine HCl (Atarax Tab*) 25 mg PO Q4H PRN ANXIETY Ceftriaxone Sodium 1 gm/ (Sodium Chloride) 50 mls @ 100 mls/hr IVPB Q24H STAR Lorazepam (Ativan Tab(*)) 0.5 mg PO Q12H STAR Melatonin (Melatonin) 3 mg PO BEDTIME STAR Nystatin (Nystatin Suspension*) 500,000 units SWISH SPIT QID STAR Nystatin (Nystatin Top Powder*) 1 applic TOPICAL TID STAR Ondansetron HCl (Zofran Inj*) 4 mg IV Q6H PRN NAUSEA Senna (Senokot 8.6 Mg Tab*) 1 tab PO BID PRN CONSTIPATION Vital Signs - 8 hr 09/26/19 09/26/19 09/26/19 06:24 06:30 06:47 Temperature 99.1 F Pulse Rate 86 Respiratory 18 20 16 Rate Blood Pressure 155/81 (mmHg) O2 Sat by Pulse 95 Oximetry 09/26/19 09/26/19 10:49 11:00 Temperature 98.3 F Pulse Rate 85 Respiratory 16 18 Rate Blood Pressure 147/77 (mmHg) O2 Sat by Pulse 97 Oximetry Oxygen Devices in Use Now: None Appearance: Middle-aged female lying in bed in NAD Eyes: No Scleral Icterus Ears/Nose/Mouth/Throat: Mucous Membranes Moist Neck: NL Appearance and Movements; NL JVP, Trachea Midline Respiratory: Symmetrical Chest Expansion and Respiratory Effort, Clear to Auscultation Cardiovascular: NL Sounds; No Murmurs; No JVD, RRR Extremities: No Edema Neurological: Alert and Oriented x 3 Lines/Tubes/Other Access: Clean, Dry and Intact Peripheral IV Nutrition: Taking PO's Result Diagrams: 09/26/19 04:20 09/26/19 04:20 Assess/Plan/Problems-Billing Assessment: Ms. Haddad is a 54 yo F with PMH of anxiety, depression, PTSD, asthma, agoraphobia; who presented to the ED with AMS after being found down in her home and was found to have rhabdomyolysis, minimally responsive, requiring ICU admission. - Patient Problems (1) Benzodiazepine overdose Code(s): T42.4X1A - POISONING BY BENZODIAZEPINES, ACCIDENTAL, INIT Comment: - Patient reports running out of oxy before she could refill script (this sounds to be a monthly occurrence) so she took benzos in order to manage symptoms - Mental status slowly improving, but continued generalized weakness and AMS - Tox screen + for benzos and amphetamines (both fluoxetine and bupropion can cause false + amphetamine results) - Appreciate Neuro consult - MRI unremarkable for acute changes - Neuro checks q4h - Continue lorazepam and oxy taper (2) Catheter-associated urinary tract infection Code(s): T83.511A - I/I REACT D/T INDWELLING URETHRAL CATHETER, INIT; N39.0 - URINARY TRACT INFECTION, SITE NOT SPECIFIED Comment: - Hospital acquired - Not meeting sepsis criteria - Urine culture growing >100k colonies Proteus - Continue ceftriaxone (3) Rhabdomyolysis Code(s): M62.82 - RHABDOMYOLYSIS Comment: - Down on the floor at home for an unknown period of time - CK 42,000 on admission, now resolved (4) Left-sided weakness Code(s): R53.1 - WEAKNESS Comment: - Resolved - Suspected secondary to benzo overdose and sedation - MRI brain unremarkable - RUE US unremarkable for DVT (5) ELSA (acute kidney injury) Code(s): N17.9 - ACUTE KIDNEY FAILURE, UNSPECIFIED Comment: - Resolved - Secondary to rhabdo - Creatinine 2.54 on admission, now normal (6) SIRS (systemic inflammatory response syndrome) Code(s): R65.10 - SIRS OF NON-INFECTIOUS ORIGIN W/O ACUTE ORGAN DYSFUNCTION Comment: - Resolved - Met criteria on admission with tachycardia, leukocytosis, tachypnea, fever - CXR unremarkable (7) Elevated troponin Code(s): R79.89 - OTHER SPECIFIED ABNORMAL FINDINGS OF BLOOD CHEMISTRY Comment : - Suspected secondary to rhabdo - Peaked at 0.25 - Echo shows EF 65-70%, no significant valvular abnormalities (8) Metabolic acidosis Code(s): E87.2 - ACIDOSIS Comment: - Present on admission, gap now closed (9) Psychiatric disorder Code(s): F99 - MENTAL DISORDER, NOT OTHERWISE SPECIFIED Comment: - Resume bupropion, fluoxetine - Appreciate Psych consult; recommends tapering off benzos and narcs completely (10) DVT prophylaxis Code(s): Z29.9 - ENCOUNTER FOR PROPHYLACTIC MEASURES, UNSPECIFIED Comment: - Lovenox (11) Full code status Code(s): Z78.9 - OTHER SPECIFIED HEALTH STATUS Comment: Status and Disposition: Inpatient. Anticipate d/c home when medically stable, hopefully tomorrow if she is successfully weaned off narcotics and benzos. Attending: Roly Byrne
[2019-09-26 15:09] LABS: HIV 4th Generation Nonreactive (Nonreactive)
[2019-09-26] MEDS: Enoxaparin(*) 40 MG/0.4 ML SYR SUBCUT SCH (15:52)
[2019-09-26] MEDS: cloNIDine TAB* 0.1 MG PO SCH (20:57)
[2019-09-26] MEDS: Melatonin 3 MG TAB PO SCH (20:57)
[2019-09-27 06:29] LABS: Albumin 3.4 g/dL (3.2-5.2); Albumin/Globulin Ratio 1.1 (1-3); Calcium 9.4 mg/dL (8.6-10.3); EGFR African American 130.6 (>60); EGFR Non-African American 107.9 (>60); Potassium 3.1 mmol/L (3.5-5.0); Total Bilirubin 0.4 mg/dL (0.2-1.0); Total Protein 6.4 g/dL (6.4-8.9)
[2019-09-27] MEDS ORDERED: Potassium Chlor TAB* 20 MEQ TAB.ER PO ONE (07:04)
[2019-09-27] MEDS ORDERED: KCL 20 MEQ/100 ML IVPREMIX* 20 MEQ/100 ML BAG IV ONE (07:04)
[2019-09-27] MEDS: Nystatin TOP POWDER* 15 GM BTL TOPICAL SCH ×3 (08:06→21:37)
[2019-09-27] MEDS: Baclofen TAB* 10 MG PO SCH ×3 (08:07→20:02)
[2019-09-27] MEDS: Nystatin SUSPENSION* 100000 UNITS/ML 5 ML UDC SWISH SPIT SCH ×4 (08:07→20:02)
[2019-09-27] MEDS: BuPROPion XL* 150 MG TAB.XL PO SCH (08:07)
[2019-09-27] MEDS: LORazepam TAB(*) 0.5 MG PO SCH (08:08)
[2019-09-27] MEDS: FLUoxetine CAP* 20 MG PO SCH (08:08)
[2019-09-27] MEDS: hydrOXYzine HCL TAB* 25 MG PO PRN (10:57)
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
[2019-09-27] MEDS: cefTRIAXone(*) 1 GM in NS 0.9% 50 ML* 50 ML IVPB SCH (12:28)
--- NOTE | 2019-09-27 14:03 | PN ---
Subjective Date of Service: 09/27/19 Interval History: Ms. Haddad is not feeling well today. She is having frequent diarrhea. Still feeling nauseous. Generally neff-positive ROS. This afternoon c/o CP and hand tremors. No concerns from nursing. Family History: Unchanged from Admission Social History: Unchanged from Admission Past Medical History: Unchanged from Admission Objective Active Medications: Acetaminophen (Tylenol Tab*) 650 mg PO Q4H PRN MILD PAIN or TEMP > 100.4 Baclofen (Lioresal Tab*) 10 mg PO TID STAR Bupropion HCl (Bupropion Xl*) 300 mg PO DAILY STAR Clonidine HCl (Catapres Tab*) 0.1 mg PO BEDTIME STAR Enoxaparin Sodium (Lovenox(*)) 40 mg SUBCUT Q24H STAR Fluoxetine HCl (Prozac Cap*) 40 mg PO QAM STAR Hydroxyzine HCl (Atarax Tab*) 50 mg PO Q4H PRN ANXIETY Ceftriaxone Sodium 1 gm/ (Sodium Chloride) 50 mls @ 100 mls/hr IVPB Q24H STAR Loperamide HCl (Imodium Cap*) 2 mg PO .SEE DIRECTIONS PRN DIARRHEA Melatonin (Melatonin) 3 mg PO BEDTIME STAR Nystatin (Nystatin Suspension*) 500,000 units SWISH SPIT QID STAR Nystatin (Nystatin Top Powder*) 1 applic TOPICAL TID STAR Ondansetron HCl (Zofran Inj*) 4 mg IV Q6H PRN NAUSEA Senna (Senokot 8.6 Mg Tab*) 1 tab PO BID PRN CONSTIPATION Vital Signs - 8 hr 09/27/19 09/27/19 09/27/19 07:20 08:00 11:20 Temperature 99.6 F 98.9 F Pulse Rate 99 106 Respiratory 18 20 20 Rate Blood Pressure 142/80 146/80 (mmHg) O2 Sat by Pulse 96 95 Oximetry Oxygen Devices in Use Now: None Appearance: Middle-aged female lying in bed in NAD Ears/Nose/Mouth/Throat: Mucous Membranes Moist Neck: NL Appearance and Movements; NL JVP, Trachea Midline Respiratory: Symmetrical Chest Expansion and Respiratory Effort, Clear to Auscultation Cardiovascular: NL Sounds; No Murmurs; No JVD, RRR Abdominal: - - Soft, tender throughout Extremities: No Edema Neurological: Alert and Oriented x 3 Lines/Tubes/Other Access: Clean, Dry and Intact Peripheral IV Result Diagrams: 09/26/19 04:20 09/27/19 05:06 Assess/Plan/Problems-Billing Assessment: Ms. Haddad is a 54 yo F with PMH of anxiety, depression, PTSD, asthma, agoraphobia; who presented to the ED with AMS after being found down in her home and was found to have rhabdomyolysis, minimally responsive, requiring ICU admission. - Patient Problems (1) Benzodiazepine overdose Code(s): T42.4X1A - POISONING BY BENZODIAZEPINES, ACCIDENTAL, INIT Comment: - Patient reports running out of oxy before she could refill script (this sounds to be a monthly occurrence) so she took benzos in order to manage symptoms - Mental status slowly improving, but continued generalized weakness and AMS - Tox screen + for benzos and amphetamines (both fluoxetine and bupropion can cause false + amphetamine results) - MRI unremarkable for acute changes - Now completely weaned off narcotics and benzos - Increase clonidine per Psych recommendations (2) Catheter-associated urinary tract infection Code(s): T83.511A - I/I REACT D/T INDWELLING URETHRAL CATHETER, INIT; N39.0 - URINARY TRACT INFECTION, SITE NOT SPECIFIED Comment: - Hospital acquired - Not meeting sepsis criteria - Urine culture growing >100k colonies Proteus - Continue ceftriaxone (3) Candidiasis of mouth Code(s): B37.0 - CANDIDAL STOMATITIS Comment: - HIV negative - Continue nystatin (4) Rhabdomyolysis Code(s): M62.82 - RHABDOMYOLYSIS Comment: - Down on the floor at home for an unknown period of time - CK 42,000 on admission, now resolved (5) Left-sided weakness Code(s): R53.1 - WEAKNESS Comment: - Resolved - Suspected secondary to benzo overdose and sedation (6) ELSA (acute kidney injury) Code(s): N17.9 - ACUTE KIDNEY FAILURE, UNSPECIFIED Comment: - Resolved - Secondary to rhabdo - Creatinine 2.54 on admission, now normal (7) SIRS (systemic inflammatory response syndrome) Code(s): R65.10 - SIRS OF NON-INFECTIOUS ORIGIN W/O ACUTE ORGAN DYSFUNCTION Comment: - Resolved - Met criteria on admission with tachycardia, leukocytosis, tachypnea, fever - CXR unremarkable (8) Elevated troponin Code(s): R79.89 - OTHER SPECIFIED ABNORMAL FINDINGS OF BLOOD CHEMISTRY Comment : - Suspected secondary to rhabdo - Peaked at 0.25 - Echo shows EF 65-70%, no significant valvular abnormalities (9) Metabolic acidosis Code(s): E87.2 - ACIDOSIS Comment: - Present on admission, gap now closed (10) Psychiatric disorder Code(s): F99 - MENTAL DISORDER, NOT OTHERWISE SPECIFIED Comment: - Appreciate Psych consult; recommends tapering off benzos and narcs completely - Continue bupropion, fluoxetine (11) DVT prophylaxis Code(s): Z29.9 - ENCOUNTER FOR PROPHYLACTIC MEASURES, UNSPECIFIED Comment: - Lovenox (12) Full code status Code(s): Z78.9 - OTHER SPECIFIED HEALTH STATUS Comment: Status and Disposition: Inpatient. Anticipate d/c home when medically stable, hopefully tomorrow. Attending: Norma Cabral
[2019-09-27] MEDS: hydrOXYzine HCL TAB* 50 MG PO PRN ×2 (16:11→20:02)
[2019-09-27] MEDS: Enoxaparin(*) 40 MG/0.4 ML SYR SUBCUT SCH (16:11)
[2019-09-27] MEDS: cloNIDine TAB* 0.1 MG PO SCH ×2 (16:11→20:02)
[2019-09-27] MEDS: Melatonin 3 MG TAB PO SCH (21:36)
[2019-09-28] MEDS: hydrOXYzine HCL TAB* 50 MG PO PRN ×5 (00:53→23:59)
[2019-09-28] MEDS: Loperamide CAP* 2 MG PO PRN (05:42)
[2019-09-28 08:18] LABS: Calcium 9.4 mg/dL (8.6-10.3); EGFR African American 118.7 (>60); EGFR Non-African American 98.1 (>60); Potassium 3.7 mmol/L (3.5-5.0)
[2019-09-28] MEDS: Nystatin SUSPENSION* 100000 UNITS/ML 5 ML UDC SWISH SPIT SCH ×4 (09:03→21:22)
[2019-09-28] MEDS: Baclofen TAB* 10 MG PO SCH ×3 (09:03→20:04)
[2019-09-28] MEDS: FLUoxetine CAP* 20 MG PO SCH (09:03)
[2019-09-28] MEDS: cloNIDine TAB* 0.1 MG PO SCH ×3 (09:04→20:04)
[2019-09-28] MEDS: BuPROPion XL* 300 MG TAB.XL PO SCH (09:04)
[2019-09-28] MEDS: Nystatin TOP POWDER* 15 GM BTL TOPICAL SCH ×3 (09:06→21:22)
--- NOTE | 2019-09-28 11:01 | PN ---
Subjective Date of Service: 09/28/19 Interval History: Called by nursing patient is complaining of feeling anxious. Patient is being weaned off benzo and narcotics d/t overdose. Patient c/o abdominal pain and continued diarrhea. C/o occasional shortness of breath and feeling shaky. Patient reports that she needs to have a "benzo" to help calm her symptoms. Patient with family at the bedside reports, Patient is now agreeable to admission to [facility] - contacted Dr. Miramontes who will see and evaluate the patient. Denies chest pain. Denies vomiting. Patient was walked in her room with walker with nursing staff to her bathroom and back. Family History: Unchanged from Admission Social History: Unchanged from Admission Past Medical History: Unchanged from Admission Objective Active Medications: Acetaminophen (Tylenol Tab*) 650 mg PO Q4H PRN PRN Reason: MILD PAIN or TEMP > 100.4 Last Admin: 09/26/19 07:17 Dose: 650 mg Baclofen (Lioresal Tab*) 10 mg PO TID [facility] Last Admin: 09/28/19 09:03 Dose: 10 mg Bupropion HCl (Bupropion Xl*) 300 mg PO DAILY [facility] Last Admin: 09/28/19 09:04 Dose: 300 mg Clonidine HCl (Catapres Tab*) 0.1 mg PO TID [facility] Last Admin: 09/28/19 09:04 Dose: 0.1 mg Enoxaparin Sodium (Lovenox(*)) 40 mg SUBCUT Q24H [facility] Last Admin: 09/27/19 16:11 Dose: 40 mg Fluoxetine HCl (Prozac Cap*) 40 mg PO QAM [facility] Last Admin: 09/28/19 09:03 Dose: 40 mg Hydroxyzine HCl (Atarax Tab*) 50 mg PO Q4H PRN PRN Reason: .ANXIETY Last Admin: 09/28/19 09:03 Dose: 50 mg Ceftriaxone Sodium 1 gm/ (Sodium Chloride) 50 mls @ 100 mls/hr IVPB Q24H [facility] Last Admin: 09/27/19 12:28 Dose: 100 mls/hr Loperamide HCl (Imodium Cap*) 2 mg PO .SEE DIRECTIONS PRN PRN Reason: DIARRHEA Last Admin: 09/28/19 05:42 Dose: 2 mg Melatonin (Melatonin) 3 mg PO BEDTIME [facility] Last Admin: 09/27/19 21:36 Dose: 3 mg Nystatin (Nystatin Suspension*) 500,000 units SWISH SPIT QID [facility] Last Admin: 09/28/19 09:03 Dose: 500,000 units Nystatin (Nystatin Top Powder*) 1 applic TOPICAL TID [facility] Last Admin: 09/28/19 09:06 Dose: 1 applic Ondansetron HCl (Zofran Inj*) 4 mg IV Q6H PRN PRN Reason: NAUSEA Last Admin: 09/25/19 13:15 Dose: 4 mg Senna (Senokot 8.6 Mg Tab*) 1 tab PO BID PRN PRN Reason: CONSTIPATION Last Admin: 09/26/19 00:42 Dose: 1 tab Vital Signs - 8 hr 09/28/19 09/28/19 09/28/19 03:23 05:42 07:00 Temperature 97.4 F 98.1 F Pulse Rate 91 103 Respiratory 20 16 18 Rate Blood Pressure 127/70 151/87 (mmHg) O2 Sat by Pulse 97 98 Oximetry 09/28/19 09/28/19 07:44 08:00 Temperature Pulse Rate Respiratory 18 18 Rate Blood Pressure (mmHg) O2 Sat by Pulse Oximetry Oxygen Devices in Use Now: None Appearance: appears comfortable , alert Eyes: No Scleral Icterus Ears/Nose/Mouth/Throat: Clear Oropharnyx, Mucous Membranes Moist Neck: NL Appearance and Movements; NL JVP, Trachea Midline Respiratory: Symmetrical Chest Expansion and Respiratory Effort, Clear to Auscultation Cardiovascular: NL Sounds; No Murmurs; No JVD, No Edema Abdominal: NL Sounds; No Tenderness; No Distention Extremities: No Edema, No Clubbing, Cyanosis Skin: No Rash or Ulcers Neurological: Alert and Oriented x 3 Nutrition: Taking PO's Result Diagrams: 09/26/19 04:20 09/28/19 07:56 Microbiology and Other Data: Microbiology 09/21/19 02:00 Nasal Screen MRSA (PCR) - Final Nasal Mrsa Not Detected Assess/Plan/Problems-Billing Assessment: Ms. Haddad is a 54 yo F with PMH of anxiety, depression, PTSD, asthma, agoraphobia; who presented to the ED with AMS after being found down in her home and was found to have rhabdomyolysis, minimally responsive, requiring ICU admission. - Patient Problems (1) Benzodiazepine overdose Current Visit: Yes Status: Acute Code(s): T42.4X1A - POISONING BY BENZODIAZEPINES, ACCIDENTAL, INIT SNOMED Code(s): 817815332 Comment: - Patient reports running out of oxy before she could refill script (this sounds to be a monthly occurrence) so she took benzos in order to manage symptoms - Mental status slowly improving, but continued generalized weakness, difficulty with memory - Tox screen + for benzos and amphetamines (both fluoxetine and bupropion can cause false + amphetamine results) - MRI unremarkable for acute changes - Now completely weaned off narcotics and benzos - Increase clonidine per Psych recommendations (2) Catheter-associated urinary tract infection Current Visit: Yes Status: Acute Code(s): T83.511A - I/I REACT D/T INDWELLING URETHRAL CATHETER, INIT; N39.0 - URINARY TRACT INFECTION, SITE NOT SPECIFIED SNOMED Code(s): 125897900 Comment: - Hospital acquired - Not meeting sepsis criteria - Urine culture growing >100k colonies Proteus - Continue ceftriaxone day 4- needs 3 more day of antibiotics- will start cefdinir to complete 3 day course (3) Rhabdomyolysis Current Visit: Yes Status: Acute Code(s): M62.82 - RHABDOMYOLYSIS SNOMED Code(s): 282089151 Comment: - Down on the floor at home for an unknown period of time - CK 42,000 on admission, now resolved (4) ELSA (acute kidney injury) Current Visit: Yes Status: Acute Code(s): N17.9 - ACUTE KIDNEY FAILURE, UNSPECIFIED SNOMED Code(s): 92163735 Comment: - Resolved - Secondary to rhabdo - Creatinine 2.54 on admission, now normal (5) Candidiasis of mouth Current Visit: Yes Status: Acute Code(s): B37.0 - CANDIDAL STOMATITIS SNOMED Code(s): 51639617 Comment: - HIV negative - Continue nystatin (6) Depression Current Visit: Yes Status: Acute Priority: Medium Code(s): F32.9 - MAJOR DEPRESSIVE DISORDER, SINGLE EPISODE, UNSPECIFIED SNOMED Code(s): 91466643 Comment: continue wellbutrin - prozac increased yesterday from 20 to 40 mg (7) Elevated troponin Current Visit: Yes Status: Acute Code(s): R79.89 - OTHER SPECIFIED ABNORMAL FINDINGS OF BLOOD CHEMISTRY SNOMED Code(s): 734881796 Comment: - Suspected secondary to rhabdo - Peaked at 0.25 - Echo shows EF 65-70%, no significant valvular abnormalities (8) Left-sided weakness Current Visit: Yes Status: Acute Code(s): R53.1 - WEAKNESS SNOMED Code(s) : 359835085 Comment: - Resolved - Suspected secondary to benzo overdose and sedation (9) Metabolic acidosis Current Visit: Yes Status: Acute Code(s): E87.2 - ACIDOSIS SNOMED Code(s) : 80187325 Comment: resolved - Present on admission, gap now closed (10) Psychiatric disorder Current Visit: Yes Status: Acute Code(s): F99 - MENTAL DISORDER, NOT OTHERWISE SPECIFIED SNOMED Code(s): 13048711 Comment: - Appreciate Psych consult; recommends tapering off benzos and narcs completely - Continue bupropion, fluoxetine (11) DVT prophylaxis Current Visit: Yes Status: Acute Code(s): Z29.9 - ENCOUNTER FOR PROPHYLACTIC MEASURES, UNSPECIFIED SNOMED Code(s): 069160295 Comment: - Lovenox (12) Full code status Current Visit: Yes Status: Acute Code(s): Z78.9 - OTHER SPECIFIED HEALTH STATUS SNOMED Code(s): 016138822 Comment: Status and Disposition: Inpatient.- discharge to [facility] today
[2019-09-28] MEDS: cefTRIAXone(*) 1 GM in NS 0.9% 50 ML* 50 ML IVPB SCH (11:54)
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
[2019-09-28] MEDS: Acetaminophen TAB* 325 MG PO PRN ×3 (12:50→23:58)
[2019-09-28] MEDS: Enoxaparin(*) 40 MG/0.4 ML SYR SUBCUT SCH (18:31)
[2019-09-28] MEDS ORDERED: Ibuprofen TAB* 400 MG ONE (19:28)
[2019-09-28] MEDS ORDERED: Ibuprofen TAB* 400 MG PO PRN (19:30)
[2019-09-28] MEDS: Melatonin 3 MG TAB PO SCH (20:04)
--- NOTE | 2019-09-28 20:12 | DS ---
TRANSFER SUMMARY: DATE OF ADMISSION: 09/20/19 DATE OF DISCHARGE: 09/28/19 PROVIDER: Himanshu Brar NP PRIMARY CARE PROVIDER: Dr. Red. ATTENDING PHYSICIAN WHILE IN THE HOSPITAL: Dr. Brittney Hi * (dictated by Himanshu Brar NP). PRIMARY DIAGNOSES: 1. Overdose on benzodiazepine. 2. Acute kidney injury, resolved. 3. Catheter-associated urinary tract infection. 4. Metabolic acidosis, resolved. 5. Rhabdomyolysis, resolved. 6. Candidiasis of the mouth, treated. 7. Elevated troponin. 8. Depression. 9. Withdrawal from opioids and benzodiazepines. SECONDARY DIAGNOSES: 1. Asthma. 2. Anxiety. 3. Depression. 4. Posttraumatic stress disorder. 5. Agoraphobia. STUDIES COMPLETED WHILE IN THE HOSPITAL: She had an x-ray of her wrist: Osteopenia, soft tissue swelling. No acute osseous injury. She had a CT of the brain on 09/20/19, radiologist's impression: No acute intracranial pathology. Subcutaneous hematoma on the right frontotemporal region and partially visualized in the right periorbital region. She had a chest x-ray on 09/20/19: No evidence of active cardiopulmonary disease. She had an electrocardiogram on 09/27/19, which showed sinus tachycardia at a rate of 109. No ST or T-wave changes. She had an MRI of the brain on 09/21/19: No acute intracranial abnormality. Soft tissue swelling and hematoma about the right scalp and facial soft tissues , complete opacification of the right maxillary sinus. She had a venous Doppler on 09/21/19: No right upper extremity deep vein thrombosis. She had a transthoracic echocardiogram: Left ventricular size is normal. Wall thickness is mildly increased. Systolic function is vigorous. The estimated ejection fraction is 65% to 70%. Wall motion is normal. There are no regional wall motion abnormalities. Left ventricular diastolic function parameters are normal. Right ventricular systolic function is normal. Atrial septum: The atrial septum appears aneurysmal. Mitral valve: There is a trace regurgitation. Tricuspid valve: There is mild regurgitation. Pulmonary artery systolic pressure within the normal range. Pulmonary artery pressure may be underestimated due to peak pressure during the systole by Doppler. No prior echocardiogram to compare. She had a repeat chest x-ray on 09/22/19: No active cardiopulmonary disease. She had a repeat CT of the brain on 09/25/19: No acute intracranial pathology. There is a slight decrease in swelling on the right face and right frontal temporal scalp consistent with right face and scalp contusions. CONSULTATIONS: She was seen in consultation by Dr. Flynn from Neurology due to altered mental status and possible left-sided weakness when she was in the ICU. He suspected left-sided weakness was difficult to be evaluated and recommended an MRI of the brain. MRI of the brain was obtained and within normal limits. He suspected that the neurological deficits were related to withdrawing and recommended not starting antiplatelet therapy and a complete workup will be done if she showed signs of acute stroke. There was no acute stroke on her MRI. The patient had a history of depression and anxiety, on bupropion and fluoxetine as an outpatient. He saw no evidence of serotonin syndrome and recommended continued monitoring for rigidity and seizures. Recommended minimizing the use of tizanidine as this could increase the risk of serotonin syndrome. She was seen in consultation by Dr. Miramontes. He recommended transfer to [facility] for inpatient psychiatric stabilization and that Psychiatry would take over care. DISCHARGE MEDICATIONS: New home medications: 1. Cefdinir 300 mg p.o. b.i.d. x3 more days. 2. Hydroxyzine 50 mg p.o. q.4 hours as needed for anxiety. 3. Imodium 2 mg as needed for diarrhea. 4. Clonidine 0.1 mg p.o. t.i.d. for withdrawal. 5. Fluoxetine 40 mg p.o. daily, increased from 20 mg p.o. daily. Continued home medications: 1. Premarin vaginal 0.5 two to three times a week. 2. Prilosec 20 mg p.o. at bedtime. 3. Albuterol 1 inhaled q.4 hours as needed for shortness of breath. 4. Multivitamin 1 tablet p.o. daily. 5. EpiPen p.r.n. 6. Calcium carbonate 500 mg p.o. b.i.d. with meals. 7. Benadryl 50 mg p.o. daily as needed. 8. Wellbutrin 300 mg p.o. daily. 9. Fluticasone nasal spray both nares daily. Discontinued medications: 1. Alprazolam 1 mg. 2. Oxycodone 15 mg. 3. Senokot 1 tablet b.i.d. 4. Zanaflex 2 to 4 mg at bedtime. 5. Restoril 30 mg at bedtime. HISTORY OF PRESENT ILLNESS AND HOSPITAL COURSE: Ms. Haddad is a 54-year-old female with a history of chronic pain, chronic prescription opioid use, anxiety , depression, PTSD, agoraphobia and asthma, who was brought to the emergency room on 09/20/19 after a friend found the patient altered. The last text he got from the patient was a day before in the afternoon and she was otherwise at baseline talkative and able to ambulate; however, she has been on oxycodone and she ran out of her meds 4 to 5 days ago which is normal for her , so the friend was giving her some Gatorade and other medications to help her through the withdrawals. She recently picked up a prescription for temazepam, benzodiazepine, 5 days ago, but she had called back her friend stating that she was running out of her prescription, likely taking too many tablets. While in the emergency room, it was documented that the patient had 6 pills left on the 30-day supply when she was 5 days into the prescription. The patient's friend, mother and father were all at the bedside in the emergency room, stating that she has chronic opioid abuse, that she has never tried street drugs. The family does report that the patient has gone through severe withdrawals before. The patient was admitted for altered mental status likely due to benzodiazepine overdose, rhabdomyolysis secondary to altered mental status and being on the floor, elevated troponin likely related to decreased clearance and kidney injury on admission. She had an elevated white count on admission likely secondary to dehydration with no obvious signs of sepsis. She had elevated liver functions likely related to rhabdomyolysis. She had acute kidney injury secondary to rhabdomyolysis/dehydration. She had metabolic acidosis on admission, which resolved with IV hydration. During the hospitalization, the patient was found to have an elevated troponin level peaked at 0.25 and trended down. This was likely related to rhabdomyolysis and acute kidney injury and decreased clearance. The patient did have a transthoracic echocardiogram that showed a normal EF with normal wall function. The patient was initially placed in the ICU and did have symptoms of withdrawal. Her condition did improve and she was transferred to [address] [place] [address]. The patient had some associated diarrhea with withdrawal symptoms. Her stool was checked for C. diff, which was negative. She also did have a catheter- associated urinary tract infection for which she was treated with ceftriaxone x4 days. She did receive ceftriaxone for 4 days. I will continue her on cefdinir 300 mg p.o. b.i.d. for 3 more days to complete a 7-day course of antibiotic therapy. At this time, Ms. Haddad is stable for discharge to [facility]. Vital Signs: Blood pressure 118/63, heart rate 103, respirations 20, O2 saturation 96%, temperature was 98.3. DISCHARGE PLAN: Ms. Haddad will be discharged to the behavioral health unit at [facility]. Activity as tolerated. 1. Benzodiazepine overdose, withdrawal from diazepam/opioids. Further management of her care will be done on the behavioral health unit. The patient will continue Atarax and clonidine for her withdrawal symptoms. 2. Depression/anxiety. The patient will have further management in the mental health unit. She should continue on her Prozac, which was increased to 40 mg p.o. daily. She should continue on Wellbutrin as previously prescribed. 3. Asthma. She can continue her albuterol inhaler as needed. 4. Oral candidiasis. She can continue nystatin swish and spit 4 times a day. 5. Acute kidney injury. The patient did have acute kidney injury on admission , which has resolved with hydration. 6. Catheter-associated urinary tract infection. The patient did have a catheter- associated urinary tract infection, which grew Proteus mirabilis which was susceptible to cephalosporins. She did receive 4 days of ceftriaxone IV. I will continue on cefdinir 300 mg p.o. b.i.d. for 3 more days to complete a total treatment of 7 days. 7. Diarrhea. The patient does complain of diarrhea. I suspect this is related to withdrawal from opioids and benzodiazepines. The patient did have stool sent for C. diff, which was negative for C. diff. 8. Rhabdomyolysis. The patient did have rhabdomyolysis on admission likely related to lying on the floor. The patient's CK did improve throughout her hospitalization and this is now resolved. 9. She had an elevated troponin. The patient did have an elevated troponin during this hospitalization. It was felt this was related to her acute kidney injury and inability of clearance due to kidney function. The patient did have a transthoracic echocardiogram that showed normal wall motion with normal EF of 65% to 70%. Should the patient have further episodes of chest pain, I would recommend an outpatient workup for coronary artery disease. The patient should report to the behavioral health unit for further management of her ongoing depression, anxiety and posttraumatic stress disorder, as well as benzodiazepine and opioid abuse. She should follow up per further directions per Psychiatry for further management of her care of depression, anxiety, and opioid abuse. The patient should follow up with a primary care provider 4 to 7 days after her discharge from the mental health unit. The patient should return to the emergency room for any severe shortness of breath, chest pain, worsening withdrawal symptoms, or any other concerning symptoms. At this time, the patient is stable for discharge to [facility]. TIME SPENT: Time spent on this discharge was 60 minutes, greater than half that time was spent discussing her discharge plans and instructions. I have discussed this with my attending, Dr. Brittney Hi; she is in agreement with my plan. HIMANSHU BRAR NP [id number]/[facility] #: [id number] [place]
[2019-09-29] MEDS: BuPROPion XL* 300 MG TAB.XL PO SCH (08:45)
[2019-09-29] MEDS: cloNIDine TAB* 0.1 MG PO SCH ×3 (08:46→20:07)
[2019-09-29] MEDS: FLUoxetine CAP* 20 MG PO SCH (08:46)
[2019-09-29] MEDS: Baclofen TAB* 10 MG PO SCH ×3 (08:46→20:08)
[2019-09-29] MEDS: Nystatin SUSPENSION* 100000 UNITS/ML 5 ML UDC SWISH SPIT SCH ×4 (08:48→20:13)
[2019-09-29] MEDS: Nystatin TOP POWDER* 15 GM BTL TOPICAL SCH ×3 (11:44→20:47)
[2019-09-29] MEDS ORDERED: LORazepam TAB(*) 1 MG PO ONE (12:48)
[2019-09-29] MEDS ORDERED: Diclofenac Sodium EC TAB* 25 MG PO SCH (13:00)
[2019-09-29] MEDS: Lidocaine PATCH 5%* 1 PATCH TRANSDERM SCH (13:30)
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
[2019-09-29] MEDS: Enoxaparin(*) 40 MG/0.4 ML SYR SUBCUT SCH (17:20)
[2019-09-29] MEDS: hydrOXYzine HCL TAB* 50 MG PO PRN (20:07)
[2019-09-29] MEDS: Melatonin 3 MG TAB PO SCH (20:07)
[2019-09-29] MEDS: Cefdinir cap* 300 MG CAP PO SCH (20:09)
[2019-09-29] MEDS: Diclofenac Sodium EC TAB* 25 MG PO SCH (20:13)
[2019-09-29] MEDS: Lidocaine Patch REMOVE* 1 NOTE MISC SCH (20:46)
[2019-09-30] MEDS: Acetaminophen TAB* 325 MG PO PRN ×2 (02:42→19:58)
[2019-09-30] MEDS: hydrOXYzine HCL TAB* 50 MG PO PRN ×3 (02:42→16:22)
[2019-09-30] MEDS: cloNIDine TAB* 0.1 MG PO SCH ×3 (09:07→21:22)
[2019-09-30] MEDS: FLUoxetine CAP* 20 MG PO SCH (09:07)
[2019-09-30] MEDS: BuPROPion XL* 300 MG TAB.XL PO SCH (09:07)
[2019-09-30] MEDS: Baclofen TAB* 10 MG PO SCH ×3 (09:07→21:22)
[2019-09-30] MEDS: Diclofenac Sodium EC TAB* 25 MG PO SCH ×2 (09:08→21:37)
[2019-09-30] MEDS: Cefdinir cap* 300 MG CAP PO SCH ×2 (09:08→21:22)
[2019-09-30] MEDS: Nystatin SUSPENSION* 100000 UNITS/ML 5 ML UDC SWISH SPIT SCH ×4 (09:10→21:38)
[2019-09-30] MEDS: Lidocaine PATCH 5%* 1 PATCH TRANSDERM SCH (09:11)
[2019-09-30] MEDS: Nystatin TOP POWDER* 15 GM BTL TOPICAL SCH ×3 (09:12→21:40)
[2019-09-30] MEDS ORDERED: LORazepam TAB(*) 1 MG PO ONE ×3 (10:21→10:23)
[2019-09-30] MEDS ORDERED: LORazepam TAB(*) 1 MG ONE (10:24)
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
[2019-09-30] MEDS: Enoxaparin(*) 40 MG/0.4 ML SYR SUBCUT SCH (17:30)
[2019-09-30] MEDS: Loperamide CAP* 2 MG PO PRN (19:59)
[2019-09-30] MEDS: Lidocaine Patch REMOVE* 1 NOTE MISC SCH (21:37)
[2019-09-30] MEDS: Melatonin 3 MG TAB PO SCH (21:38)
[2019-10-01] MEDS: hydrOXYzine HCL TAB* 50 MG PO PRN ×2 (03:36→23:45)
[2019-10-01 07:25] LABS: HDL Cholesterol 40.8 mg/dL
[2019-10-01] MEDS: Lidocaine PATCH 5%* 1 PATCH TRANSDERM SCH (09:33)
[2019-10-01] MEDS: cloNIDine TAB* 0.1 MG PO SCH ×3 (09:33→22:05)
[2019-10-01] MEDS: BuPROPion XL* 300 MG TAB.XL PO SCH (09:33)
[2019-10-01] MEDS: Nystatin SUSPENSION* 100000 UNITS/ML 5 ML UDC SWISH SPIT SCH ×4 (09:33→22:07)
[2019-10-01] MEDS: Diclofenac Sodium EC TAB* 25 MG PO SCH ×3 (09:33→22:06)
[2019-10-01] MEDS: FLUoxetine CAP* 20 MG PO SCH (09:33)
[2019-10-01] MEDS: Baclofen TAB* 10 MG PO SCH ×3 (09:34→22:05)
[2019-10-01] MEDS: Cefdinir cap* 300 MG CAP PO SCH ×2 (09:34→22:05)
[2019-10-01] MEDS: Nystatin TOP POWDER* 15 GM BTL TOPICAL SCH ×3 (09:53→22:07)
[2019-10-01] MEDS: Loperamide CAP* 2 MG PO PRN (13:39)
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
[2019-10-01] MEDS: Buprenorp/Nalox 8-2 MG SL TAB PO SCH (16:51)
[2019-10-01] MEDS: Enoxaparin(*) 40 MG/0.4 ML SYR SUBCUT SCH (17:34)
[2019-10-01] MEDS: Melatonin 3 MG TAB PO SCH (22:05)
[2019-10-01] MEDS: Lidocaine Patch REMOVE* 1 NOTE MISC SCH (22:08)
[2019-10-01] MEDS: Acetaminophen TAB* 325 MG PO PRN (23:45)
[2019-10-02] MEDS: Cefdinir cap* 300 MG CAP PO SCH ×2 (09:23→22:13)
[2019-10-02] MEDS: FLUoxetine CAP* 20 MG PO SCH (09:23)
[2019-10-02] MEDS: Baclofen TAB* 10 MG PO SCH ×3 (09:24→22:13)
[2019-10-02] MEDS: cloNIDine TAB* 0.1 MG PO SCH ×3 (09:24→22:13)
[2019-10-02] MEDS: BuPROPion XL* 300 MG TAB.XL PO SCH (09:24)
[2019-10-02] MEDS: Buprenorp/Nalox 8-2 MG SL TAB PO SCH (09:25)
[2019-10-02] MEDS: Lidocaine PATCH 5%* 1 PATCH TRANSDERM SCH (09:26)
[2019-10-02] MEDS: Diclofenac Sodium EC TAB* 25 MG PO SCH ×2 (09:29→22:14)
[2019-10-02] MEDS: Nystatin SUSPENSION* 100000 UNITS/ML 5 ML UDC SWISH SPIT SCH ×4 (09:31→22:22)
[2019-10-02] MEDS: Nystatin TOP POWDER* 15 GM BTL TOPICAL SCH ×3 (09:31→22:21)
[2019-10-02] MEDS: Benzocaine/Menthol LOZ* 1 LOZENGE PO PRN ×2 (15:51→23:17)
[2019-10-02] MEDS: hydrOXYzine HCL TAB* 50 MG PO PRN ×2 (15:51→23:16)
[2019-10-02] MEDS: Enoxaparin(*) 40 MG/0.4 ML SYR SUBCUT SCH (16:56)
[2019-10-02] MEDS: Melatonin 3 MG TAB PO SCH (22:13)
[2019-10-02] MEDS: Lidocaine Patch REMOVE* 1 NOTE MISC SCH (22:21)
[2019-10-02] MEDS: Acetaminophen TAB* 325 MG PO PRN (23:16)
[2019-10-03] MEDS: FLUoxetine CAP* 20 MG PO SCH (09:46)
[2019-10-03] MEDS: Buprenorp/Nalox 8-2 MG SL TAB PO SCH (09:47)
[2019-10-03] MEDS: BuPROPion XL* 300 MG TAB.XL PO SCH (09:47)
[2019-10-03] MEDS: cloNIDine TAB* 0.1 MG PO SCH ×3 (09:48→21:59)
[2019-10-03] MEDS: Lidocaine PATCH 5%* 1 PATCH TRANSDERM SCH (09:49)
[2019-10-03] MEDS: Diclofenac Sodium EC TAB* 25 MG PO SCH ×2 (09:50→22:01)
[2019-10-03] MEDS: Nystatin TOP POWDER* 15 GM BTL TOPICAL SCH ×3 (10:00→17:40)
[2019-10-03] MEDS: Cefdinir cap* 300 MG CAP PO SCH ×2 (10:12→21:47)
[2019-10-03] MEDS: Baclofen TAB* 10 MG PO SCH ×3 (10:13→21:47)
[2019-10-03] MEDS: Benzocaine/Menthol LOZ* 1 LOZENGE PO PRN ×2 (10:14→18:08)
[2019-10-03] MEDS: Nystatin SUSPENSION* 100000 UNITS/ML 5 ML UDC SWISH SPIT SCH ×4 (10:14→21:47)
[2019-10-03] MEDS: Enoxaparin(*) 40 MG/0.4 ML SYR SUBCUT SCH (17:44)
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
[2019-10-03] MEDS: Melatonin 3 MG TAB PO SCH (21:47)
[2019-10-03] MEDS: hydrOXYzine HCL TAB* 50 MG PO PRN (21:54)
[2019-10-04] MEDS: Nystatin TOP POWDER* 15 GM BTL TOPICAL SCH ×4 (00:32→22:40)
[2019-10-04] MEDS: Lidocaine Patch REMOVE* 1 NOTE MISC SCH ×2 (00:55→22:40)
[2019-10-04] MEDS: Baclofen TAB* 10 MG PO SCH ×3 (09:45→20:42)
[2019-10-04] MEDS: Cefdinir cap* 300 MG CAP PO SCH ×2 (09:45→20:42)
[2019-10-04] MEDS: FLUoxetine CAP* 20 MG PO SCH (09:45)
[2019-10-04] MEDS: Diclofenac Sodium EC TAB* 25 MG PO SCH ×2 (09:45→20:40)
[2019-10-04] MEDS: BuPROPion XL* 300 MG TAB.XL PO SCH (09:45)
[2019-10-04] MEDS: cloNIDine TAB* 0.1 MG PO SCH ×3 (09:45→20:42)
[2019-10-04] MEDS: Buprenorp/Nalox 8-2 MG SL TAB PO SCH (09:47)
[2019-10-04] MEDS: Lidocaine PATCH 5%* 1 PATCH TRANSDERM SCH (09:47)
[2019-10-04] MEDS: Nystatin SUSPENSION* 100000 UNITS/ML 5 ML UDC SWISH SPIT SCH ×4 (09:48→22:40)
[2019-10-04] MEDS: Acetaminophen TAB* 325 MG PO PRN ×2 (11:48→16:07)
[2019-10-04] MEDS: hydrOXYzine HCL TAB* 50 MG PO PRN ×3 (11:48→20:45)
[2019-10-04] MEDS: Benzocaine/Menthol LOZ* 1 LOZENGE PO PRN ×2 (11:48→18:29)
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
[2019-10-04] MEDS: Gabapentin CAP(*) 100 MG PO SCH ×2 (14:20→20:41)
[2019-10-04 17:31] LABS: Urine Appearance Clear; Urine Color Yellow; Urine Ketones Negative (Negative); Urine Protein 1+(30 mg/dL) (Negative); Urine Specific Gravity 1.025 (1.010-1.030); Urine Urobilinogen Negative (Negative)
[2019-10-04 17:32] LABS: Urine Bilirubin Negative (Negative); Urine Blood Negative (Negative); Urine Glucose Negative (Negative); Urine Nitrite Negative (Negative)
[2019-10-04] MEDS: QUEtiapine TAB* 25 MG PO SCH (20:41)
[2019-10-04] MEDS: Melatonin 3 MG TAB PO SCH (20:42)
[2019-10-05] MEDS: hydrOXYzine HCL TAB* 50 MG PO PRN (02:30)
[2019-10-05] MEDS: Acetaminophen TAB* 325 MG PO PRN ×2 (02:30→18:06)
[2019-10-05] MEDS: Cefdinir cap* 300 MG CAP PO SCH ×2 (09:16→21:10)
[2019-10-05] MEDS: FLUoxetine CAP* 20 MG PO SCH (09:17)
[2019-10-05] MEDS: Baclofen TAB* 10 MG PO SCH ×3 (09:17→21:09)
[2019-10-05] MEDS: Gabapentin CAP(*) 100 MG PO SCH ×3 (09:17→21:13)
[2019-10-05] MEDS: cloNIDine TAB* 0.1 MG PO SCH ×3 (09:18→21:16)
[2019-10-05] MEDS: BuPROPion XL* 300 MG TAB.XL PO SCH (09:18)
[2019-10-05] MEDS: Buprenorp/Nalox 8-2 MG SL TAB PO SCH (09:18)
[2019-10-05] MEDS: Lidocaine PATCH 5%* 1 PATCH TRANSDERM SCH (09:19)
[2019-10-05] MEDS: Nystatin SUSPENSION* 100000 UNITS/ML 5 ML UDC SWISH SPIT SCH ×4 (09:19→21:17)
[2019-10-05] MEDS: Diclofenac Sodium EC TAB* 25 MG PO SCH ×2 (09:19→21:12)
[2019-10-05] MEDS: Nystatin TOP POWDER* 15 GM BTL TOPICAL SCH ×3 (09:20→22:46)
[2019-10-05] MEDS: Benzocaine/Menthol LOZ* 1 LOZENGE PO PRN (18:09)
[2019-10-05] MEDS: Melatonin 3 MG TAB PO SCH (21:14)
[2019-10-05] MEDS: QUEtiapine TAB* 25 MG PO SCH (21:15)
[2019-10-05] MEDS: Lidocaine Patch REMOVE* 1 NOTE MISC SCH (21:18)
[2019-10-06] MEDS: hydrOXYzine HCL TAB* 50 MG PO PRN (03:17)
[2019-10-06] MEDS: Acetaminophen TAB* 325 MG PO PRN (03:17)
[2019-10-06] MEDS: Baclofen TAB* 10 MG PO SCH ×3 (09:00→21:03)
[2019-10-06] MEDS: cloNIDine TAB* 0.1 MG PO SCH ×3 (09:00→21:03)
[2019-10-06] MEDS: Cefdinir cap* 300 MG CAP PO SCH (09:00)
[2019-10-06] MEDS: BuPROPion XL* 300 MG TAB.XL PO SCH (09:01)
[2019-10-06] MEDS: FLUoxetine CAP* 20 MG PO SCH (09:02)
[2019-10-06] MEDS: Gabapentin CAP(*) 100 MG PO SCH ×2 (09:03→14:18)
[2019-10-06] MEDS: Buprenorp/Nalox 8-2 MG SL TAB PO SCH (09:04)
[2019-10-06] MEDS: Lidocaine PATCH 5%* 1 PATCH TRANSDERM SCH (12:04)
[2019-10-06] MEDS: Diclofenac Sodium EC TAB* 25 MG PO SCH ×2 (12:39→12:44)
[2019-10-06] MEDS: Nystatin SUSPENSION* 100000 UNITS/ML 5 ML UDC SWISH SPIT SCH ×4 (12:43→22:25)
[2019-10-06] MEDS: Nystatin TOP POWDER* 15 GM BTL TOPICAL SCH ×3 (12:43→22:26)
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
[2019-10-06] MEDS: Benzocaine/Menthol LOZ* 1 LOZENGE PO PRN ×2 (16:43→21:07)
[2019-10-06] MEDS: Gabapentin CAP(*) 300 MG PO SCH (21:02)
[2019-10-06] MEDS: traZODone TAB* 50 MG TAB PO SCH (21:02)
[2019-10-06] MEDS: Melatonin 3 MG TAB PO SCH (21:03)
[2019-10-06] MEDS: Lidocaine Patch REMOVE* 1 NOTE MISC SCH (22:25)
[2019-10-07] MEDS: Acetaminophen TAB* 325 MG PO PRN (03:13)
[2019-10-07] MEDS: hydrOXYzine HCL TAB* 50 MG PO PRN ×2 (03:13→09:08)
[2019-10-07] MEDS: Lidocaine PATCH 5%* 1 PATCH TRANSDERM SCH (09:04)
[2019-10-07] MEDS: BuPROPion XL* 300 MG TAB.XL PO SCH (09:05)
[2019-10-07] MEDS: FLUoxetine CAP* 20 MG PO SCH (09:05)
[2019-10-07] MEDS: cloNIDine TAB* 0.1 MG PO SCH ×3 (09:05→21:39)
[2019-10-07] MEDS: Gabapentin CAP(*) 300 MG PO SCH ×3 (09:06→21:38)
[2019-10-07] MEDS: Baclofen TAB* 10 MG PO SCH ×3 (09:07→21:40)
[2019-10-07] MEDS: Buprenorp/Nalox 8-2 MG SL TAB PO SCH (09:07)
[2019-10-07] MEDS: Nystatin SUSPENSION* 100000 UNITS/ML 5 ML UDC SWISH SPIT SCH ×4 (12:58→21:43)
[2019-10-07] MEDS: Nystatin TOP POWDER* 15 GM BTL TOPICAL SCH ×3 (12:58→21:42)
--- NOTE | 2019-10-07 13:05 | PN ---
BS[facility]: Group Therapy Note - Service Type Service Type: [id number] Group Psychotherapy - Cognitive Behavioral Group Therapy ( CBT):Patient was attentive and participatory in CBT programming this morning, and remained in good behavioral control. Patient expressed positive insights regarding relevant treatment interventions and goals.
[2019-10-07] MEDS: traZODone TAB* 50 MG TAB PO SCH (21:39)
[2019-10-07] MEDS: Melatonin 3 MG TAB PO SCH (21:39)
[2019-10-07] MEDS: Lidocaine Patch REMOVE* 1 NOTE MISC SCH (21:42)
[2019-10-08] MEDS: Benzocaine/Menthol LOZ* 1 LOZENGE PO PRN ×2 (01:22→16:09)
[2019-10-08] MEDS: hydrOXYzine HCL TAB* 50 MG PO PRN ×2 (02:16→16:09)
[2019-10-08] MEDS: Acetaminophen TAB* 325 MG PO PRN ×4 (02:16→21:46)
[2019-10-08] MEDS: cloNIDine TAB* 0.1 MG PO SCH ×2 (09:00→15:48)
[2019-10-08] MEDS: Buprenorp/Nalox 8-2 MG SL TAB PO SCH (09:01)
[2019-10-08] MEDS: Baclofen TAB* 10 MG PO SCH ×4 (09:01→20:31)
[2019-10-08] MEDS: Gabapentin CAP(*) 300 MG PO SCH ×3 (09:01→20:31)
[2019-10-08] MEDS: BuPROPion XL* 300 MG TAB.XL PO SCH (09:02)
[2019-10-08] MEDS: FLUoxetine CAP* 20 MG PO SCH (09:02)
[2019-10-08] MEDS: Nystatin TOP POWDER* 15 GM BTL TOPICAL SCH ×3 (09:18→21:38)
[2019-10-08] MEDS: Lidocaine PATCH 5%* 1 PATCH TRANSDERM SCH (09:18)
[2019-10-08] MEDS: Nystatin SUSPENSION* 100000 UNITS/ML 5 ML UDC SWISH SPIT SCH ×4 (09:18→21:38)
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
[2019-10-08] MEDS: Melatonin 3 MG TAB PO SCH (20:31)
[2019-10-08] MEDS: traZODone TAB* 50 MG TAB PO SCH (20:32)
[2019-10-08] MEDS: Analgesic BALM* 114 GM TOPICAL SCH (21:37)
[2019-10-08] MEDS: Lidocaine Patch REMOVE* 1 NOTE MISC SCH (21:45)
[2019-10-09] MEDS: cloNIDine TAB* 0.1 MG PO SCH ×4 (00:43→21:16)
[2019-10-09] MEDS ORDERED: BuPROPion XL* 300 MG TAB.XL PO SCH (09:00)
[2019-10-09] MEDS: Nystatin TOP POWDER* 15 GM BTL TOPICAL SCH ×3 (09:04→21:27)
[2019-10-09] MEDS: Analgesic BALM* 114 GM TOPICAL SCH ×3 (09:04→21:26)
[2019-10-09] MEDS: Nystatin SUSPENSION* 100000 UNITS/ML 5 ML UDC SWISH SPIT SCH ×4 (09:37→21:25)
[2019-10-09] MEDS: Buprenorp/Nalox 8-2 MG SL TAB PO SCH (09:38)
[2019-10-09] MEDS: FLUoxetine CAP* 20 MG PO SCH (09:38)
[2019-10-09] MEDS: Baclofen TAB* 10 MG PO SCH ×3 (09:38→21:15)
[2019-10-09] MEDS: Gabapentin CAP(*) 300 MG PO SCH ×3 (09:39→21:15)
[2019-10-09] MEDS: hydrOXYzine HCL TAB* 50 MG PO PRN (09:41)
[2019-10-09] MEDS: Acetaminophen TAB* 325 MG PO PRN (09:41)
[2019-10-09] MEDS: BuPROPion XL* 150 MG TAB.XL PO SCH (10:01)
[2019-10-09] MEDS: Lidocaine PATCH 5%* 1 PATCH TRANSDERM SCH (10:02)
[2019-10-09] MEDS: Benzocaine/Menthol LOZ* 1 LOZENGE PO PRN (10:03)
[2019-10-09] MEDS: Melatonin 3 MG TAB PO SCH (21:16)
[2019-10-09] MEDS: traZODone TAB* 50 MG TAB PO SCH (21:17)
[2019-10-09] MEDS: Lidocaine Patch REMOVE* 1 NOTE MISC SCH (21:25)
[2019-10-10] MEDS: Acetaminophen TAB* 325 MG PO PRN ×3 (06:45→19:19)
[2019-10-10] MEDS: hydrOXYzine HCL TAB* 50 MG PO PRN ×3 (06:45→19:20)
[2019-10-10] MEDS: Baclofen TAB* 10 MG PO SCH ×3 (09:22→21:31)
[2019-10-10] MEDS: BuPROPion XL* 150 MG TAB.XL PO SCH (09:23)
[2019-10-10] MEDS: FLUoxetine CAP* 20 MG PO SCH (09:23)
[2019-10-10] MEDS: Gabapentin CAP(*) 300 MG PO SCH ×3 (09:23→21:31)
[2019-10-10] MEDS: cloNIDine TAB* 0.1 MG PO SCH ×3 (09:23→21:31)
[2019-10-10] MEDS: Buprenorp/Nalox 8-2 MG SL TAB PO SCH (09:26)
[2019-10-10] MEDS: Nystatin SUSPENSION* 100000 UNITS/ML 5 ML UDC SWISH SPIT SCH ×4 (09:26→21:32)
[2019-10-10] MEDS: Lidocaine PATCH 5%* 1 PATCH TRANSDERM SCH (10:18)
[2019-10-10] MEDS: Nystatin TOP POWDER* 15 GM BTL TOPICAL SCH ×3 (10:18→21:52)
[2019-10-10] MEDS: Analgesic BALM* 114 GM TOPICAL SCH ×3 (10:19→21:51)
[2019-10-10] MEDS: Benzocaine/Menthol LOZ* 1 LOZENGE PO PRN (19:23)
[2019-10-10] MEDS: Melatonin 3 MG TAB PO SCH (21:31)
[2019-10-10] MEDS: traZODone TAB* 50 MG TAB PO SCH (21:31)
[2019-10-10] MEDS: Lidocaine Patch REMOVE* 1 NOTE MISC SCH (21:51)
[2019-10-11] MEDS: BuPROPion XL* 150 MG TAB.XL PO SCH (07:59)
[2019-10-11] MEDS: Buprenorp/Nalox 8-2 MG SL TAB PO SCH (08:00)
[2019-10-11] MEDS: FLUoxetine CAP* 20 MG PO SCH (08:00)
[2019-10-11] MEDS: Baclofen TAB* 10 MG PO SCH ×3 (08:00→21:00)
[2019-10-11] MEDS: cloNIDine TAB* 0.1 MG PO SCH ×3 (08:00→20:59)
[2019-10-11] MEDS: Gabapentin CAP(*) 300 MG PO SCH ×3 (08:00→20:58)
[2019-10-11] MEDS: Nystatin SUSPENSION* 100000 UNITS/ML 5 ML UDC SWISH SPIT SCH ×4 (08:02→21:03)
[2019-10-11] MEDS: Nystatin TOP POWDER* 15 GM BTL TOPICAL SCH ×3 (08:03→21:06)
[2019-10-11] MEDS: Benzocaine/Menthol LOZ* 1 LOZENGE PO PRN (09:38)
[2019-10-11] MEDS: Senna TAB 8.6 mg* TAB PO PRN ×2 (09:38→18:35)
[2019-10-11] MEDS: Lidocaine PATCH 5%* 1 PATCH TRANSDERM SCH (09:39)
[2019-10-11 10:43] LABS: Urine Appearance Clear; Urine Bilirubin Negative (Negative); Urine Blood Negative (Negative); Urine Color Yellow; Urine Glucose Negative (Negative); Urine Ketones Negative (Negative); Urine Nitrite Negative (Negative); Urine Protein Negative (Negative); Urine Specific Gravity 1.009 (1.010-1.030); Urine Urobilinogen Negative (Negative)
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
[2019-10-11] MEDS ORDERED: Albuterol HFA INHALER* 8 gm MDI INH PRN (11:26)
[2019-10-11] MEDS: hydrOXYzine HCL TAB* 50 MG PO PRN ×2 (11:46→18:35)
[2019-10-11] MEDS: Acetaminophen TAB* 325 MG PO PRN ×2 (11:47→18:37)
[2019-10-11] MEDS: Analgesic BALM* 114 GM TOPICAL SCH ×3 (14:29→21:04)
[2019-10-11] MEDS: traZODone TAB* 50 MG TAB PO SCH (20:59)
[2019-10-11] MEDS: Melatonin 3 MG TAB PO SCH (21:00)
[2019-10-11] MEDS: Lidocaine Patch REMOVE* 1 NOTE MISC SCH (21:03)
[2019-10-12] MEDS: Analgesic BALM* 114 GM TOPICAL SCH ×3 (08:57→21:28)
[2019-10-12] MEDS: Buprenorp/Nalox 8-2 MG SL TAB PO SCH (08:58)
[2019-10-12] MEDS: cloNIDine TAB* 0.1 MG PO SCH ×3 (08:58→21:19)
[2019-10-12] MEDS: Gabapentin CAP(*) 300 MG PO SCH ×3 (08:59→21:19)
[2019-10-12] MEDS: FLUoxetine CAP* 20 MG PO SCH (08:59)
[2019-10-12] MEDS: Baclofen TAB* 10 MG PO SCH ×3 (08:59→21:18)
[2019-10-12] MEDS: Senna TAB 8.6 mg* TAB PO PRN (09:02)
[2019-10-12] MEDS: Acetaminophen TAB* 325 MG PO PRN ×2 (09:03→17:47)
[2019-10-12] MEDS: Nystatin TOP POWDER* 15 GM BTL TOPICAL SCH ×3 (10:36→21:25)
[2019-10-12] MEDS: Lidocaine PATCH 5%* 1 PATCH TRANSDERM SCH (10:36)
[2019-10-12] MEDS: Nystatin SUSPENSION* 100000 UNITS/ML 5 ML UDC SWISH SPIT SCH ×4 (10:36→21:24)
[2019-10-12] MEDS: hydrOXYzine HCL TAB* 50 MG PO PRN (17:47)
[2019-10-12] MEDS: traZODone TAB* 50 MG TAB PO SCH (21:21)
[2019-10-12] MEDS: Melatonin 3 MG TAB PO SCH (21:28)
[2019-10-12] MEDS: Lidocaine Patch REMOVE* 1 NOTE MISC SCH (21:29)
[2019-10-13] MEDS: FLUoxetine CAP* 20 MG PO SCH (09:10)
[2019-10-13] MEDS: Buprenorp/Nalox 8-2 MG SL TAB PO SCH (09:10)
[2019-10-13] MEDS: Baclofen TAB* 10 MG PO SCH ×3 (09:11→21:30)
[2019-10-13] MEDS: Acetaminophen TAB* 325 MG PO PRN ×2 (09:13→22:14)
[2019-10-13] MEDS: hydrOXYzine HCL TAB* 50 MG PO PRN (09:13)
[2019-10-13] MEDS: Lidocaine PATCH 5%* 1 PATCH TRANSDERM SCH (09:14)
[2019-10-13] MEDS: Nystatin SUSPENSION* 100000 UNITS/ML 5 ML UDC SWISH SPIT SCH ×4 (09:14→21:39)
[2019-10-13] MEDS: Analgesic BALM* 114 GM TOPICAL SCH ×3 (09:14→21:43)
[2019-10-13] MEDS: Nystatin TOP POWDER* 15 GM BTL TOPICAL SCH ×3 (09:42→21:42)
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
[2019-10-13] MEDS: Gabapentin CAP(*) 300 MG PO SCH ×3 (12:31→21:36)
[2019-10-13] MEDS: cloNIDine TAB* 0.1 MG PO SCH ×3 (12:32→21:33)
[2019-10-13] MEDS: Conjugated Estrogens TAB* 0.3 MG TAB PO SCH (13:16)
[2019-10-13] MEDS: traZODone TAB* 50 MG TAB PO SCH (21:37)
[2019-10-13] MEDS: Melatonin 3 MG TAB PO SCH (21:37)
[2019-10-13] MEDS: Lidocaine Patch REMOVE* 1 NOTE MISC SCH (21:39)
[2019-10-14] MEDS: Baclofen TAB* 10 MG PO SCH ×3 (09:20→20:50)
[2019-10-14] MEDS: cloNIDine TAB* 0.1 MG PO SCH ×3 (09:21→20:51)
[2019-10-14] MEDS: Buprenorp/Nalox 8-2 MG SL TAB PO SCH (09:21)
[2019-10-14] MEDS: FLUoxetine CAP* 20 MG PO SCH (09:22)
[2019-10-14] MEDS: Lidocaine PATCH 5%* 1 PATCH TRANSDERM SCH (09:23)
[2019-10-14] MEDS: Gabapentin CAP(*) 300 MG PO SCH ×3 (09:23→20:52)
[2019-10-14] MEDS: Nystatin TOP POWDER* 15 GM BTL TOPICAL SCH ×3 (09:24→21:22)
[2019-10-14] MEDS: Nystatin SUSPENSION* 100000 UNITS/ML 5 ML UDC SWISH SPIT SCH ×4 (09:25→21:18)
[2019-10-14] MEDS: Magnesium Hydroxide LIQ* 30 ML UDC PO PRN (09:40)
[2019-10-14] MEDS: Analgesic BALM* 114 GM TOPICAL SCH ×3 (09:44→21:21)
[2019-10-14] MEDS: Conjugated Estrogens TAB* 0.3 MG TAB PO SCH (09:45)
[2019-10-14] MEDS: Acetaminophen TAB* 325 MG PO PRN ×2 (14:42→18:47)
[2019-10-14] MEDS: Benzocaine/Menthol LOZ* 1 LOZENGE PO PRN (14:43)
[2019-10-14] MEDS: hydrOXYzine HCL TAB* 50 MG PO PRN ×2 (14:46→21:16)
[2019-10-14] MEDS: Polyethylene Glycol 3350* 17 GM PACKET PO PRN (15:27)
[2019-10-14] MEDS: Senna TAB 8.6 mg* TAB PO PRN (17:46)
[2019-10-14] MEDS: Melatonin 3 MG TAB PO SCH (21:01)
[2019-10-14] MEDS: traZODone TAB* 50 MG TAB PO SCH (21:09)
[2019-10-14] MEDS: Lidocaine Patch REMOVE* 1 NOTE MISC SCH (21:20)
[2019-10-15] MEDS: Acetaminophen TAB* 325 MG PO PRN ×2 (04:01→16:38)
[2019-10-15] MEDS: FLUoxetine CAP* 20 MG PO SCH (09:02)
[2019-10-15] MEDS: cloNIDine TAB* 0.1 MG PO SCH ×3 (09:03→21:09)
[2019-10-15] MEDS: Buprenorp/Nalox 8-2 MG SL TAB PO SCH (09:03)
[2019-10-15] MEDS: Baclofen TAB* 10 MG PO SCH ×3 (09:03→21:10)
[2019-10-15] MEDS: Conjugated Estrogens TAB* 0.3 MG TAB PO SCH (09:05)
[2019-10-15] MEDS: Gabapentin CAP(*) 300 MG PO SCH ×4 (09:06→21:12)
[2019-10-15] MEDS: Lidocaine PATCH 5%* 1 PATCH TRANSDERM SCH (09:06)
[2019-10-15] MEDS: Nystatin SUSPENSION* 100000 UNITS/ML 5 ML UDC SWISH SPIT SCH ×4 (09:06→21:12)
[2019-10-15] MEDS: Polyethylene Glycol 3350* 17 GM PACKET PO PRN (09:09)
[2019-10-15] MEDS: Magnesium Hydroxide LIQ* 30 ML UDC PO PRN (09:09)
[2019-10-15] MEDS: Nystatin TOP POWDER* 15 GM BTL TOPICAL SCH ×3 (09:35→21:12)
[2019-10-15] MEDS: Analgesic BALM* 114 GM TOPICAL SCH ×3 (09:35→21:12)
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
[2019-10-15] MEDS: hydrOXYzine HCL TAB* 50 MG PO PRN (14:54)
[2019-10-15] MEDS: Lidocaine Patch REMOVE* 1 NOTE MISC SCH (20:17)
[2019-10-15] MEDS: Melatonin 3 MG TAB PO SCH (21:08)
[2019-10-15] MEDS: traZODone TAB* 50 MG TAB PO SCH (21:08)
[2019-10-15] MEDS: Senna TAB 8.6 mg* TAB PO PRN (21:11)
[2019-10-16] MEDS: FLUoxetine CAP* 20 MG PO SCH (08:56)
[2019-10-16] MEDS: Gabapentin CAP(*) 300 MG PO SCH ×4 (08:57→21:33)
[2019-10-16] MEDS: cloNIDine TAB* 0.1 MG PO SCH ×3 (08:58→21:34)
[2019-10-16] MEDS: Senna TAB 8.6 mg* TAB PO PRN ×2 (08:59→22:09)
[2019-10-16] MEDS: Buprenorp/Nalox 8-2 MG SL TAB PO SCH (09:00)
[2019-10-16] MEDS: Baclofen TAB* 10 MG PO SCH ×3 (09:00→21:33)
[2019-10-16] MEDS: Acetaminophen TAB* 325 MG PO PRN (09:01)
[2019-10-16] MEDS: Conjugated Estrogens TAB* 0.3 MG TAB PO SCH (09:01)
[2019-10-16] MEDS: Nystatin SUSPENSION* 100000 UNITS/ML 5 ML UDC SWISH SPIT SCH ×4 (09:02→22:05)
[2019-10-16] MEDS: Polyethylene Glycol 3350* 17 GM PACKET PO PRN (09:02)
[2019-10-16] MEDS: Analgesic BALM* 114 GM TOPICAL SCH ×3 (09:02→22:07)
[2019-10-16] MEDS: Lidocaine PATCH 5%* 1 PATCH TRANSDERM SCH ×2 (09:03→10:11)
[2019-10-16] MEDS: Nystatin TOP POWDER* 15 GM BTL TOPICAL SCH ×3 (09:05→21:41)
[2019-10-16] MEDS: hydrOXYzine HCL TAB* 50 MG PO PRN ×3 (09:24→22:09)
[2019-10-16] MEDS: traZODone TAB* 50 MG TAB PO SCH (21:33)
[2019-10-16] MEDS: Melatonin 3 MG TAB PO SCH (21:40)
[2019-10-16] MEDS: Lidocaine Patch REMOVE* 1 NOTE MISC SCH (22:03)
[2019-10-16] MEDS: Benzocaine/Menthol LOZ* 1 LOZENGE PO PRN (22:12)
[2019-10-17] MEDS: Buprenorp/Nalox 8-2 MG SL TAB PO SCH (09:18)
[2019-10-17] MEDS: FLUoxetine CAP* 20 MG PO SCH (09:18)
[2019-10-17] MEDS: Senna TAB 8.6 mg* TAB PO PRN ×2 (09:19→22:22)
[2019-10-17] MEDS: Baclofen TAB* 10 MG PO SCH ×3 (09:19→22:13)
[2019-10-17] MEDS: hydrOXYzine HCL TAB* 50 MG PO PRN (09:19)
[2019-10-17] MEDS: Polyethylene Glycol 3350* 17 GM PACKET PO PRN (09:20)
[2019-10-17] MEDS: Nystatin SUSPENSION* 100000 UNITS/ML 5 ML UDC SWISH SPIT SCH ×4 (09:20→22:15)
[2019-10-17] MEDS: Analgesic BALM* 114 GM TOPICAL SCH ×3 (09:20→22:15)
[2019-10-17] MEDS: Gabapentin CAP(*) 300 MG PO SCH ×3 (09:20→22:13)
[2019-10-17] MEDS: Conjugated Estrogens TAB* 0.3 MG TAB PO SCH (09:21)
[2019-10-17] MEDS: cloNIDine TAB* 0.1 MG PO SCH ×3 (09:21→22:16)
[2019-10-17] MEDS: Nystatin TOP POWDER* 15 GM BTL TOPICAL SCH (09:22)
[2019-10-17] MEDS: Lidocaine PATCH 5%* 1 PATCH TRANSDERM SCH (10:59)
[2019-10-17] MEDS: traZODone TAB* 50 MG TAB PO SCH (22:14)
[2019-10-17] MEDS: Melatonin 3 MG TAB PO SCH (22:15)
[2019-10-17] MEDS: Lidocaine Patch REMOVE* 1 NOTE MISC SCH (22:15)
[2019-10-17] MEDS: Acetaminophen TAB* 325 MG PO PRN (22:21)
[2019-10-18] MEDS: Nystatin SUSPENSION* 100000 UNITS/ML 5 ML UDC SWISH SPIT SCH ×4 (08:43→21:47)
[2019-10-18] MEDS: Analgesic BALM* 114 GM TOPICAL SCH ×3 (08:43→21:10)
[2019-10-18] MEDS: Buprenorp/Nalox 8-2 MG SL TAB PO SCH (08:44)
[2019-10-18] MEDS: Baclofen TAB* 10 MG PO SCH ×3 (08:44→21:11)
[2019-10-18] MEDS: Gabapentin CAP(*) 300 MG PO SCH ×3 (08:44→21:12)
[2019-10-18] MEDS: Conjugated Estrogens TAB* 0.3 MG TAB PO SCH (08:44)
[2019-10-18] MEDS: FLUoxetine CAP* 20 MG PO SCH (08:44)
[2019-10-18] MEDS: cloNIDine TAB* 0.1 MG PO SCH (08:45)
[2019-10-18] MEDS: Lidocaine PATCH 5%* 1 PATCH TRANSDERM SCH (11:02)
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
[2019-10-18] MEDS: Benzocaine/Menthol LOZ* 1 LOZENGE PO PRN (14:36)
[2019-10-18] MEDS: traZODone TAB* 50 MG TAB PO SCH (21:11)
[2019-10-18] MEDS: Melatonin 3 MG TAB PO SCH (21:13)
[2019-10-18] MEDS: Senna TAB 8.6 mg* TAB PO PRN (21:16)
[2019-10-18] MEDS: Acetaminophen TAB* 325 MG PO PRN (21:17)
[2019-10-18] MEDS: Nystatin TOP POWDER* 15 GM BTL TOPICAL SCH (21:47)
[2019-10-18] MEDS: Lidocaine Patch REMOVE* 1 NOTE MISC SCH (21:49)
[2019-10-19] MEDS: Nystatin SUSPENSION* 100000 UNITS/ML 5 ML UDC SWISH SPIT SCH ×4 (09:10→21:04)
[2019-10-19] MEDS: Conjugated Estrogens TAB* 0.3 MG TAB PO SCH (09:10)
[2019-10-19] MEDS: Nystatin TOP POWDER* 15 GM BTL TOPICAL SCH ×3 (09:10→21:04)
[2019-10-19] MEDS: Gabapentin CAP(*) 300 MG PO SCH (09:10)
[2019-10-19] MEDS: Analgesic BALM* 114 GM TOPICAL SCH ×3 (09:10→20:48)
[2019-10-19] MEDS: Baclofen TAB* 10 MG PO SCH ×3 (09:10→20:48)
[2019-10-19] MEDS: Buprenorp/Nalox 8-2 MG SL TAB PO SCH (09:11)
[2019-10-19] MEDS: FLUoxetine CAP* 20 MG PO SCH (09:11)
[2019-10-19] MEDS: Lidocaine PATCH 5%* 1 PATCH TRANSDERM SCH (11:51)
[2019-10-19] MEDS: Gabapentin CAP(*) 100 MG PO SCH ×2 (16:08→20:46)
[2019-10-19] MEDS: traZODone TAB* 50 MG TAB PO SCH (20:48)
[2019-10-19] MEDS: Acetaminophen TAB* 325 MG PO PRN (20:50)
[2019-10-20] MEDS: Acetaminophen TAB* 325 MG PO PRN (09:18)
[2019-10-20] MEDS: FLUoxetine CAP* 20 MG PO SCH (09:20)
[2019-10-20] MEDS: Buprenorp/Nalox 8-2 MG SL TAB PO SCH (09:20)
[2019-10-20] MEDS: Baclofen TAB* 10 MG PO SCH ×2 (09:20→14:34)
[2019-10-20] MEDS: Gabapentin CAP(*) 100 MG PO SCH ×2 (09:21→14:21)
[2019-10-20] MEDS: Conjugated Estrogens TAB* 0.3 MG TAB PO SCH (09:21)
[2019-10-20] MEDS: Analgesic BALM* 114 GM TOPICAL SCH ×2 (09:22→14:20)
[2019-10-20] MEDS: Nystatin SUSPENSION* 100000 UNITS/ML 5 ML UDC SWISH SPIT SCH ×2 (09:22→14:20)
[2019-10-20] MEDS: Nystatin TOP POWDER* 15 GM BTL TOPICAL SCH ×2 (09:25→14:22)
[2019-10-20 10:55] VITALS: BP 117/52
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
== END 2019-10-20 14:45 | disposition home or self-care (01) | DRG 812 ==
LOC: ED 19:05 → ICU 23:30 → MED 09-22 09:16 → BSU 09-28 16:59
PROVIDERS: ADMIT Internal Medicine; ATTEND Psychiatry & Neurology Psychiatry
PROC: GZHZZZZ Group Psychotherapy (ICD-10-PCS; principal; 2019-10-07)
DX: T42.4X1A Poisoning by benzodiazepines, accidental (unintentional), initial encounter (principal); T83.511A Infection and inflammatory reaction due to indwelling urethral catheter, initial encounter; N39.0 Urinary tract infection, site not specified; M62.82 Rhabdomyolysis; N17.9 Acute kidney failure, unspecified; E87.2 Acidosis; R65.10 Systemic inflammatory response syndrome (SIRS) of non-infectious origin without acute organ dysfunction; B37.0 Candidal stomatitis; F19.239 Other psychoactive substance dependence with withdrawal, unspecified; F11.23 Opioid dependence with withdrawal; G89.29 Other chronic pain; F41.9 Anxiety disorder, unspecified; F40.00 Agoraphobia, unspecified; J45.909 Unspecified asthma, uncomplicated; F43.10 Post-traumatic stress disorder, unspecified; F32.9 Major depressive disorder, single episode, unspecified; R79.89 Other specified abnormal findings of blood chemistry; E86.1 Hypovolemia; D72.829 Elevated white blood cell count, unspecified; R00.0 Tachycardia, unspecified; F40.01 Agoraphobia with panic disorder; M54.9 Dorsalgia, unspecified; K58.9 Irritable bowel syndrome, unspecified; K21.9 Gastro-esophageal reflux disease without esophagitis; M17.0 Bilateral primary osteoarthritis of knee; M47.9 Spondylosis, unspecified; G43.909 Migraine, unspecified, not intractable, without status migrainosus; F17.210 Nicotine dependence, cigarettes, uncomplicated; R53.1 Weakness; G47.00 Insomnia, unspecified; F19.24 Other psychoactive substance dependence with psychoactive substance-induced mood disorder; Y73.1 Therapeutic (nonsurgical) and rehabilitative gastroenterology and urology devices associated with adverse incidents; Y92.239 Unspecified place in hospital as the place of occurrence of the external cause; F44.9 Dissociative and conversion disorder, unspecified; R19.7 Diarrhea, unspecified; I08.3 Combined rheumatic disorders of mitral, aortic and tricuspid valves; Z79.899 Other long term (current) drug therapy; Z88.5 Allergy status to narcotic agent; Z88.8 Allergy status to other drugs, medicaments and biological substances; Z23 Encounter for immunization; Z91.030 Bee allergy status; Z91.040 Latex allergy status; Z91.410 Personal history of adult physical and sexual abuse; Z56.0 Unemployment, unspecified
CPT/HCPCS: 36415; 70450; 70551; 71045; 72141; 72146; 72148; 80048; 80053; 80061; 80074; 80076; 80307; 80320; 81003; 81015; 82140; 82270; 82436; 82550; 82803; 83036; 83605; 83735; 83930; 83935; 84100; 84133; 84300; 84484; 85025; 85610; 87040; 87077; 87086; 87184; 87186; 87389; 87493; 87641; 90686; 90853; 93005; 93306; 99222; 99231; 99232; 99233; 99285; A9270-GY; G0480; J0696; J1170; J1650; J2060; J2405; J3480